=== PATIENT | male | born 1960 | race Caucasian/White ===

== ENCOUNTER 2017-08-19 09:08 | Inpatient (IN) | payer OTHER ==
[2017-08-19 09:45] VITALS: BMI 21.7
--- NOTE | 2017-08-19 13:24 | HP ---
CIWA Score - CIWA Score Nausea/Vomitin-No Nausea/No Vomiting Muscle Tremors: 4-Moderate,w/Arms Extend Anxiety: 4-Mod. Anxious/Guarded Agitation: 4-Moderately Restless Paroxysmal Sweats: 3 Orientation: 0-Oriented Tacttile Disturbances: 0-None Auditory Disturbances: 0-None Visual Disturbances: 0-None Headache: 0-None Present CIWA-Ar Total Score: 15 Admission ROS [facility] - HPI Chief Complaint: i am here for detox. Allergies/Adverse Reactions: Allergies Allergy/AdvReac Type Severity Reaction Status Date / Time naproxen [From Naprosyn] Allergy Severe Rash Verified 08/19/17 12:35 History of Present Illness: pt is a 57yr old male with a history of alcohol dependence seeking detox for treatment. Exam Limitations: No Limitations - Ebola screening Have you traveled outside of the country in the last 21 days: No (N) Have you had contact with anyone from an Ebola affected area: No Have you been sick,other than usual withdrawal symptoms: No Do you have a fever: No - Review of Systems Constitutional: No Symptoms Reported EENT: reports: No Symptoms Reported Respiratory: reports: No Symptoms reported Cardiac: reports: Syncope GI: reports: Poor Appetite, Poor Fluid Intake : reports: No Symptoms Reported Musculoskeletal: reports: Joint Pain (B/L hip replacement) Integumentary: reports: No Symptoms Reported Neuro: reports: Tingling, Tremors Endocrine: reports: Excessive Sweating, Flushing, Intolerance to Cold, Intolerance to Heat Hematology: reports: No Symptoms Reported Psychiatric: reports: Judgement Intact, Mood/Affect Appropiate, Orientated x3, Agitated, Anxious Other Systems: Reviewed and Negative Patient History - Patient Medical History Hx Anemia: No Hx Asthma: No Hx Chronic Obstructive Pulmonary Disease (COPD): No Hx Cancer: No Hx Cardiac Disorders: Yes (murmur) Hx Congestive Heart Failure: No Hx Hypertension: No Hx Hypercholesterolemia: No Hx Pacemaker: No HX Cerebrovascular Accident: No Hx Seizures: No Hx Dementia: No Hx Diabetes: No Hx Gastrointestinal Disorders: No Hx Liver Disease: No Hx Genitourinary Disorders: Yes (Hx of gonerrhea.) Hx Sexually Transmitted Disorders: Yes (gonorrhea) Hx Renal Disease (ESRD): No Hx Thyroid Disease: No Hx Human Immunodeficiency Virus (HIV): No (negative) Hx Hepatitis C: No (negative) Hx Depression: Yes (was on wellbutrin) Hx Suicide Attempt: No (tried to slice wrist 2yrs ago, denies any S&H ideation) Hx Bipolar Disorder: No Hx Schizophrenia: No - Patient Surgical History Past Surgical History: Yes Hx Neurologic Surgery: No Hx Cataract Extraction: No Hx Cardiac Surgery: Yes (open heart) Hx Lung Surgery: No Hx Breast Surgery: No Hx Breast Biopsy: No Hx Abdominal Surgery: Yes (hernia repair) Hx Appendectomy: No Hx Cholecystectomy: No Hx Genitourinary Surgery: No Hx Section: No Hx Orthopedic Surgery: Yes (Lt. hip prosthesis,metal plate rt. thigh) Other Surgical History: sinus,vocal chord Anesthesia Reaction: No - PPD History Previous Implant?: Yes Documented Results: Negative w/o proof Implanted On Prior R Admission?: Yes PPD to be Administered?: Yes - Reproductive History Patient is a Female of Child Bearing Age (11 -55 yrs old): No - Smoking Cessation Smoking history: Former smoker Have you smoked in the past 12 months: No If you are a former smoker, when did you quit?: 1995 Hx Chewing Tobacco Use: No Initiated information on smoking cessation: No - Substance & Tx. History Hx Alcohol Use: Yes Hx Substance Use: No Substance Use Type: Alcohol Hx Substance Use Treatment: Yes (last detox 2013 [facility]) - Substances Abused Alcohol-vodka/beer Route: Oral Frequency: Daily Amount used: 1 pt./6-8 (16 oz.) Age of first use: 16 Date of Last Use: 08/18/17 Family Disease History - Family Disease History Family History: Denies Admission Physical Exam S - Vital Signs Vital Signs: Vital Signs - 24 hr 08/19/17 09:42 Temperature 97.9 F Pulse Rate 108 H Respiratory 18 Rate Blood Pressure 170/97 - Physical General Appearance: Yes: Appropriately Dressed, Disheveled, Moderate Distress, Tremorous, Irritable, Sweating, Anxious HEENTM: Yes: Normal Voice, Nasal Congestion, Rhinorrhea Respiratory: Yes: Lungs Clear, Normal Breath Sounds, No Respiratory Distress Neck: Yes: No masses,lesions,Nodules Breast: Yes: Within Normal Limits Cardiology: Yes: Regular Rhythm, Regular Rate, S1, S2 Abdominal: Yes: Normal Bowel Sounds, Non Tender, Soft Genitourinary: Yes: Within Normal Limits Back: Yes: Normal Inspection Musculoskeletal: Yes: full range of Motion, Other (hip discomfort h/o hips replacement) Extremities: Yes: Normal Capillary Refill, Normal Inspection, Non-Tender, Tremors Neurological: Yes: Fully Oriented, Alert, Normal Response Integumentary: Yes: Normal Color, Diaphoresis Lymphatic: Yes: Within Normal Limits - Diagnostic (1) Alcohol dependence with uncomplicated withdrawal Current Visit: Yes Status: Chronic (2) H/O cardiac murmur Current Visit: No Status: Chronic (3) H/O bilateral hip replacements Current Visit: Yes Status: Chronic Comment: pt has a waddle gait d/t B/L hip replacement Cleared for Admission [facility] - Detox or Rehab [facility] Level of Care: Medically Managed Detox Regimen/Protocol: Librium [facility] Breath Alcohol Content Breath Alcohol Content: 0 Urine Drug Screen - Results Drug Screen Negative: Yes
[2017-08-19] MEDS ORDERED: chlordiazePOXIDE HCL 25 MG CAPSULE PO PRN (13:39)
[2017-08-19] MEDS ORDERED: guaiFENesin/D-METHORPHAN HB 10 ML UNIT-DOSE CUPS PO PRN (13:39)
[2017-08-19] MEDS ORDERED: MAG HYDROX/AL HYDROX/SIMETH 30 ML UNIT-DOSE CUP PO PRN (13:39)
[2017-08-19] MEDS ORDERED: ACETAMINOPHEN 325 MG TABLET (FP) PO PRN (13:39)
[2017-08-19] MEDS ORDERED: MAGNESIUM HYDROX 2400MG/30ML ORAL SUSPENSION 30 ML CUP PO PRN (13:39)
[2017-08-19] MEDS ORDERED: P-EPHED 60MG/TRIPROLIDI 2.5MG TABLET PO PRN (13:39)
[2017-08-19] MEDS ORDERED: MENTHOL/PHENOL 1 EACH UD MM PRN (13:39)
[2017-08-19] MEDS ORDERED: LOPERAMIDE HCL 2 MG CAPSULE PO PRN (13:39)
[2017-08-19] MEDS ORDERED: MAGNESIUM CITRATE 300 ML BOTTLE PO PRN (13:39)
[2017-08-19] MEDS ORDERED: chlordiazePOXIDE HCL 25 MG CAPSULE PO ONE (14:30)
--- NOTE | 2017-08-19 16:02 | CONSULT ---
[facility] Psychiatric Consult - Data Date of interview: 08/19/17 Admission source: [facility] Identifying data: Readmission to [facility] for this 57 y/o male seeking detox treatment on for alcohol dependence.Patient is without children,domiciled,unemployed,disabled and supported on [facility] benefits. Substance Abuse History: Confirmed by patient in this interview.Smoking history : Former smoker. Have you smoked in the past 12 months: No. If you are a former smoker, when did you quit?: 1995. Hx Chewing Tobacco Use: No. Initiated information on smoking cessation: No. - Substance & Tx. History. Hx Alcohol Use: Yes. Hx Substance Use: No. Substance Use Type: Alcohol. Hx Substance Use Treatment: Yes (last detox 2013 [facility]). - Substances Abused. Alcohol-vodka/beer. Route: Oral. Frequency: Daily. Amount used: 1 pt./6-8 (16 oz.). Age of first use: 16. Date of Last Use: 08/18/17 Medical History: Heart murmur,antecedent of treatment for gonorrhea,abdominal herniorraphy and recent history of orthosurgery (left hip prosthesis). Psychiatric History: Patient reports a remote history of two psychiatric hospitalizations at [facility].Diagnosed with MDD.Mr Welsh remembers past treatment with seroquel (other medications not recalled).Lost to OPD care for years as per self-report (no medications,no contact with mental healthcare providers).Patient admits to a suicide attempt," in the ",via self-mutilation (stabbed self). Physical/Sexual Abuse/Trauma History: Patient denies history of abuse. Additional Comment: Drug Screen is negative. Mental Status Exam - Mental Status Exam Alert and Oriented to: Time, Place, Person Cognitive Function: Good Patient Appearance: Well Groomed Mood: Nervous, Withdrawn, Anxious Affect: Mood Congruent, Constricted Patient Behavior: Passive, Fatigued, Cooperative Speech Pattern: Clear, Appropriate Voice Loudness: Normal Thought Process: Intact, Goal Oriented Thought Disorder: Not Present Hallucinations: Denies Suicidal Ideation: Denies Homicidal Ideation: Denies Insight/Judgement: Poor Sleep: Poorly, Difficulty falling asleep Appetite: Poor Gait/Station: Other (gait not observed : patient remains supine during entire interview) Psychiatric Findings - Problem List ([place] 1, 2,3) (1) Alcohol dependence with uncomplicated withdrawal Current Visit: Yes Status: Acute (2) Substance induced mood disorder Current Visit: Yes Status: Acute (3) Insomnia Current Visit: Yes Status: Acute - Initial Treatment Plan Initial Treatment Plan: Psychoeducation and support.Sleep hygiene.Detoxification in progress.Ambien 5 mg po hs prn.Patient informed of risk of parasomnias (sleep-walking).Mr Welsh agrees with this careplan.Observation.
[2017-08-19] MEDS: chlordiazePOXIDE HCL 25 MG CAPSULE PO SCH ×2 (17:20→22:03)
[2017-08-19] MEDS: TOLNAFTATE 1% CREAM 15 GM TUBE TP SCH (22:03)
[2017-08-19] MEDS: THIAMINE HCL 100 MG TABLET (FP) PO SCH (22:03)
[2017-08-19] MEDS: hydrOXYzine PAMOATE 50 MG CAPSULE (FP) PO PRN (22:05)
[2017-08-19 23:16] LABS: URINE APPEARANCE CLEAR; URINE BILIRUBIN NEGATIVE (NEGATIVE); URINE BLOOD NEGATIVE (NEGATIVE); URINE COLOR DKYELLOW; URINE GLUCOSE (UA) NEGATIVE (NEGATIVE); URINE KETONE NEGATIVE (NEGATIVE); URINE LEUK ESTERASE NEGATIVE (NEGATIVE); URINE NITRITE NEGATIVE (NEGATIVE); URINE PROTEIN NEGATIVE (NEGATIVE); URINE UROBILINOGEN 4.0 E.U/dl mg/dL (0.2-1.0)
[2017-08-20] MEDS: chlordiazePOXIDE HCL 25 MG CAPSULE PO SCH ×5 (06:23→22:09)
[2017-08-20] MEDS: TOLNAFTATE 1% CREAM 15 GM TUBE TP SCH ×2 (10:17→22:10)
[2017-08-20] MEDS: PRENATAL VITAMINS W/ FOLIC ACID TABLET (FP) PO SCH (10:17)
[2017-08-20 10:20] LABS: HEMATOCRIT 43.8 % (35.4-49); HEMOGLOBIN 14.3 GM/dL (11.7-16.9); MCH 31.3 pg (25.7-33.7); MCHC 32.5 g/dl (32.0-35.9); MEAN CELL VOLUME 96.3 fl (80-96); MEAN PLT VOLUME 7.6 fl (7.5-11.1); PLATELET COUNT 166 K/MM3 (134-434); RBC 4.56 M/mm3 (4.00-5.60); RDW 14.2 % (11.9-15.9); WHITE BLOOD COUNT 5.7 K/mm3 (4.0-10.0)
[2017-08-20 10:25] LABS: CHLORIDE 101 mmol/L (98-107); POTASSIUM 4.3 mmol/L (3.5-5.1); SODIUM 137 mmol/L (136-145)
[2017-08-20 10:44] LABS: ALBUMIN 3.9 g/dl (3.4-5.0); ALK PHOS 140 U/L (45-117); ANION GAP 8 (8-16); BILIRUBIN,TOTAL 1.1 mg/dL (0.2-1.0); BLOOD UREA NITROGEN 6 mg/dL (7-18); CALCIUM 8.7 mg/dL (8.5-10.1); CO2 28 mmol/L (21-32); CREATININE 0.7 mg/dL (0.7-1.3); GLUCOSE,RANDOM 84 mg/dL (74-106); SGOT/AST 64 U/L (15-37); SGPT/ALT 41 U/L (12-78); TOT PROT 8.6 g/dl (6.4-8.2)
--- NOTE | 2017-08-20 11:53 | EKG ---
Test Reason : Blood Pressure : / mmHG Vent. Rate : 099 BPM Atrial Rate : 099 BPM P-R Int : 122 ms QRS Dur : 118 ms QT Int : 374 ms P-R-T Axes : 015 -46 036 degrees QTc Int : 479 ms NORMAL SINUS RHYTHM LEFT AXIS DEVIATION LEFT VENTRICULAR HYPERTROPHY WITH QRS WIDENING ABNORMAL ECG NO PREVIOUS ECGS AVAILABLE Confirmed by YEIMI PAZ MD ([id number]) on 08/20/2017 11:52:48 AM Referred By: Confirmed By:YEIMI PAZ MD
--- NOTE | 2017-08-20 12:06 | PN ---
[facility] CIWA - CIWA Score Nausea/Vomitin-No Nausea/No Vomiting Muscle Tremors: 3 Anxiety: 4-Mod. Anxious/Guarded Agitation: 0-Normal Activity Paroxysmal Sweats: No Perspiration Orientation: 0-Oriented Tacttile Disturbances: 3-Moderate Itch/Numb/Burn Auditory Disturbances: 2-Mild Harshness/Frighten Visual Disturbances: 3-Moderate Sensitivity Headache: 0-None Present CIWA-Ar Total Score: 15 S Progress Note (SOAP) Subjective: Interrupted sleep, Body Aches, Diarrhea, Tremors, Anxious. Objective: PT. A & O X 3, OBSERVED AMBULATING ON UNIT WITH ASSISTANCE OF A CANE. NO ACUTE DISTRESS. 08/20/17 12:04 Vital Signs Temperature 97.8 F 08/20/17 09:29 Pulse Rate 88 08/20/17 09:29 Respiratory Rate 18 08/20/17 09:29 Blood Pressure 151/92 08/20/17 09:29 O2 Sat by Pulse Oximetry (%) Laboratory Tests 08/19/17 08/20/17 08/20/17 22:10 05:45 05:45 WBC 5.7 RBC 4.56 Hgb 14.3 Hct 43.8 MCV 96.3 H MCH 31.3 MCHC 32.5 RDW 14.2 Plt Count 166 D MPV 7.6 D Sodium 137 Potassium 4.3 Chloride 101 Carbon Dioxide 28 Anion Gap 8 BUN 6 L D Creatinine 0.7 Creat Clearance w eGFR > 60 Random Glucose 84 Calcium 8.7 Total Bilirubin 1.1 H D AST 64 H D ALT 41 D Alkaline Phosphatase 140 H D Total Protein 8.6 H Albumin 3.9 Urine Color Dkyellow Urine Appearance Clear Urine pH 5.0 Ur Specific [place] 1.014 Urine Protein Negative Urine Glucose (UA) Negative Urine Ketones Negative Urine Blood Negative Urine Nitrite Negative Urine Bilirubin Negative Urine Urobilinogen 4.0 e.u/dl Ur Leukocyte Esterase Negative LABS NOTED. RPR RESULT PENDING. 08/20/17 12:05 Assessment: 08/20/17 12:04 WITHDRAWAL SYMPTOMS. Plan: CONTINUE DETOX. INCREASE DAILY PO FLUID INTAKE.
[2017-08-20] MEDS: THIAMINE HCL 100 MG TABLET (FP) PO SCH (22:09)
[2017-08-20] MEDS: ZOLPIDEM TARTRATE 5 MG TABLET PO PRN (22:09)
[2017-08-21] MEDS: chlordiazePOXIDE HCL 25 MG CAPSULE PO SCH ×2 (05:47→10:10)
[2017-08-21] MEDS: TOLNAFTATE 1% CREAM 15 GM TUBE TP SCH ×2 (10:09→22:05)
[2017-08-21] MEDS: PRENATAL VITAMINS W/ FOLIC ACID TABLET (FP) PO SCH (10:09)
--- NOTE | 2017-08-21 13:11 | PN ---
[facility] CIWA - CIWA Score Nausea/Vomitin-No Nausea/No Vomiting Muscle Tremors: 3 Anxiety: 4-Mod. Anxious/Guarded Agitation: 2 Paroxysmal Sweats: No Perspiration Orientation: 2-Disoriented Date<2 days Tacttile Disturbances: 2-Mild Itch/Numbness/Burn Auditory Disturbances: 0-None Visual Disturbances: 2-Mild Sensitivity Headache: 0-None Present CIWA-Ar Total Score: 15 [facility] Progress Note (SOAP) Subjective: Anxious, Fatigue, Tremors, Body Aches. Objective: PT. A & O X 2 (UNCERTAIN ABOUT CURRENT DAY / DATE). NO ACUTE DISTRESS. 08/21/17 13:07 Vital Signs Temperature 97.0 F L 08/21/17 09:42 Pulse Rate 87 08/21/17 09:42 Respiratory Rate 18 08/21/17 09:42 Blood Pressure 134/82 08/21/17 09:42 O2 Sat by Pulse Oximetry (%) Laboratory Tests 08/19/17 08/20/17 08/20/17 22:10 05:45 05:45 WBC 5.7 RBC 4.56 Hgb 14.3 Hct 43.8 MCV 96.3 H MCH 31.3 MCHC 32.5 RDW 14.2 Plt Count 166 D MPV 7.6 D Sodium 137 Potassium 4.3 Chloride 101 Carbon Dioxide 28 Anion Gap 8 BUN 6 L D Creatinine 0.7 Creat Clearance w eGFR > 60 Random Glucose 84 Calcium 8.7 Total Bilirubin 1.1 H D AST 64 H D ALT 41 D Alkaline Phosphatase 140 H D Total Protein 8.6 H Albumin 3.9 Urine Color Dkyellow Urine Appearance Clear Urine pH 5.0 Ur Specific [place] 1.014 Urine Protein Negative Urine Glucose (UA) Negative Urine Ketones Negative Urine Blood Negative Urine Nitrite Negative Urine Bilirubin Negative Urine Urobilinogen 4.0 e.u/dl Ur Leukocyte Esterase Negative RPR Titer 08/20/17 05:45 WBC RBC Hgb Hct MCV MCH MCHC RDW Plt Count MPV Sodium Potassium Chloride Carbon Dioxide Anion Gap BUN Creatinine Creat Clearance w eGFR Random Glucose Calcium Total Bilirubin AST ALT Alkaline Phosphatase Total Protein Albumin Urine Color Urine Appearance Urine pH Ur Specific [place] Urine Protein Urine Glucose (UA) Urine Ketones Urine Blood Urine Nitrite Urine Bilirubin Urine Urobilinogen Ur Leukocyte Esterase RPR Titer Nonreactive LABS NOTED. Assessment: 08/21/17 13:10 WITHDRAWAL SYMPTOMS. Plan: CONTINUE DETOX. INCREASE DAILY PO FLUID INTAKE.
[2017-08-21] MEDS: chlordiazePOXIDE 5 MG CAPSULE PO SCH ×2 (17:26→22:05)
[2017-08-21] MEDS: THIAMINE HCL 100 MG TABLET (FP) PO SCH (22:05)
[2017-08-21] MEDS: ZOLPIDEM TARTRATE 5 MG TABLET PO PRN (22:09)
[2017-08-22] MEDS: chlordiazePOXIDE 5 MG CAPSULE PO SCH ×2 (05:58→10:24)
[2017-08-22] MEDS: TOLNAFTATE 1% CREAM 15 GM TUBE TP SCH ×2 (10:25→22:22)
[2017-08-22] MEDS: PRENATAL VITAMINS W/ FOLIC ACID TABLET (FP) PO SCH (10:25)
--- NOTE | 2017-08-22 16:50 | PN ---
[facility] Progress Note (SOAP) Subjective: Body Aches, Interrupted sleep, Fatigue, Anxious. Objective: PT. A & O X 2 (UNCERTAIN ABOUT CURRENT DAY/ DATE). PT. OBSERVED AMBULATING ON UNIT WITH ASSISTANCE OF A CANE. NO ACUTE DISTRESS. 08/22/17 16:45 Vital Signs Temperature 97.7 F 08/22/17 14:39 Pulse Rate 82 08/22/17 14:39 Respiratory Rate 18 08/22/17 14:39 Blood Pressure 133/78 08/22/17 14:39 O2 Sat by Pulse Oximetry (%) Laboratory Tests 08/19/17 08/20/17 08/20/17 22:10 05:45 05:45 WBC 5.7 RBC 4.56 Hgb 14.3 Hct 43.8 MCV 96.3 H MCH 31.3 MCHC 32.5 RDW 14.2 Plt Count 166 D MPV 7.6 D Sodium 137 Potassium 4.3 Chloride 101 Carbon Dioxide 28 Anion Gap 8 BUN 6 L D Creatinine 0.7 Creat Clearance w eGFR > 60 Random Glucose 84 Calcium 8.7 Total Bilirubin 1.1 H D AST 64 H D ALT 41 D Alkaline Phosphatase 140 H D Total Protein 8.6 H Albumin 3.9 Urine Color Dkyellow Urine Appearance Clear Urine pH 5.0 Ur Specific [place] 1.014 Urine Protein Negative Urine Glucose (UA) Negative Urine Ketones Negative Urine Blood Negative Urine Nitrite Negative Urine Bilirubin Negative Urine Urobilinogen 4.0 e.u/dl Ur Leukocyte Esterase Negative RPR Titer 08/20/17 05:45 WBC RBC Hgb Hct MCV MCH MCHC RDW Plt Count MPV Sodium Potassium Chloride Carbon Dioxide Anion Gap BUN Creatinine Creat Clearance w eGFR Random Glucose Calcium Total Bilirubin AST ALT Alkaline Phosphatase Total Protein Albumin Urine Color Urine Appearance Urine pH Ur Specific [place] Urine Protein Urine Glucose (UA) Urine Ketones Urine Blood Urine Nitrite Urine Bilirubin Urine Urobilinogen Ur Leukocyte Esterase RPR Titer Nonreactive LABS NOTED. Assessment: 08/22/17 16:45 WITHDRAWAL SYMPTOMS. Plan: CONTINUE DETOX. DUE TO LINGERING DETOX SYMPTOMS, PATIENT'S CURRENT DIFFICULTIES WITH AMBULATION , AND DUE TO THE FACT THAT THE PATIENT IS HOMELESS, PATIENT TO REMAIN ON DETOX UNIT 08/25/2017, AT WHICH TIME PATIENT WILL BE TAKEN TO [facility] FOR AFTERCARE (ADMITTING MEDICAL PROVIDER UNAVAILABLE AT [facility] ON 08/24/2017 TO DO ADMISSION ASSESSMENT, ADMISSION PLANNED FOR 08/25/2017 INSTEAD) .
[2017-08-22] MEDS: chlordiazePOXIDE HCL 10 MG CAPSULE PO SCH ×2 (17:38→22:22)
[2017-08-22] MEDS: THIAMINE HCL 100 MG TABLET (FP) PO SCH (22:21)
[2017-08-22] MEDS: hydrOXYzine PAMOATE 50 MG CAPSULE (FP) PO PRN (22:23)
[2017-08-23] MEDS: chlordiazePOXIDE HCL 10 MG CAPSULE PO SCH ×2 (05:23→10:17)
[2017-08-23] MEDS: TOLNAFTATE 1% CREAM 15 GM TUBE TP SCH ×2 (10:17→22:21)
[2017-08-23] MEDS: PRENATAL VITAMINS W/ FOLIC ACID TABLET (FP) PO SCH (10:17)
--- NOTE | 2017-08-23 18:23 | PN ---
S Progress Note (SOAP) Subjective: ALERT,IRRITABLE,ANXIOUS,INTERRUPTED SLEEP Objective: 08/23/17 18:21 Vital Signs Temperature 97.4 F L 08/23/17 18:09 Pulse Rate 94 H 08/23/17 18:09 Respiratory Rate 19 08/23/17 18:09 Blood Pressure 112/67 08/23/17 18:09 O2 Sat by Pulse Oximetry (%) Assessment: 08/23/17 18:22 WITHDRAWAL SYMPTOM Plan: CONTINUE DETOX
[2017-08-23] MEDS: THIAMINE HCL 100 MG TABLET (FP) PO SCH (22:20)
[2017-08-23] MEDS: hydrOXYzine PAMOATE 50 MG CAPSULE (FP) PO PRN (22:21)
[2017-08-24] MEDS: PRENATAL VITAMINS W/ FOLIC ACID TABLET (FP) PO SCH (10:43)
[2017-08-24] MEDS: TOLNAFTATE 1% CREAM 15 GM TUBE TP SCH ×2 (10:43→22:04)
--- NOTE | 2017-08-24 16:18 | PN ---
[facility] Progress Note (SOAP) Subjective: Interrupted Sleep, Body Aches, Anxious. Objective: PT. A & O X 3, OBSERVED AMBULATING ON UNIT WITH ASSISTANCE OF A CANE. NO ACUTE DISTRESS. 08/24/17 16:17 Vital Signs Temperature 97.5 F L 08/24/17 14:07 Pulse Rate 79 08/24/17 14:07 Respiratory Rate 20 08/24/17 14:07 Blood Pressure 135/81 08/24/17 14:07 O2 Sat by Pulse Oximetry (%) Laboratory Tests 08/19/17 08/20/17 08/20/17 22:10 05:45 05:45 WBC 5.7 RBC 4.56 Hgb 14.3 Hct 43.8 MCV 96.3 H MCH 31.3 MCHC 32.5 RDW 14.2 Plt Count 166 D MPV 7.6 D Sodium 137 Potassium 4.3 Chloride 101 Carbon Dioxide 28 Anion Gap 8 BUN 6 L D Creatinine 0.7 Creat Clearance w eGFR > 60 Random Glucose 84 Calcium 8.7 Total Bilirubin 1.1 H D AST 64 H D ALT 41 D Alkaline Phosphatase 140 H D Total Protein 8.6 H Albumin 3.9 Urine Color Dkyellow Urine Appearance Clear Urine pH 5.0 Ur Specific [place] 1.014 Urine Protein Negative Urine Glucose (UA) Negative Urine Ketones Negative Urine Blood Negative Urine Nitrite Negative Urine Bilirubin Negative Urine Urobilinogen 4.0 e.u/dl Ur Leukocyte Esterase Negative RPR Titer 08/20/17 05:45 WBC RBC Hgb Hct MCV MCH MCHC RDW Plt Count MPV Sodium Potassium Chloride Carbon Dioxide Anion Gap BUN Creatinine Creat Clearance w eGFR Random Glucose Calcium Total Bilirubin AST ALT Alkaline Phosphatase Total Protein Albumin Urine Color Urine Appearance Urine pH Ur Specific [place] Urine Protein Urine Glucose (UA) Urine Ketones Urine Blood Urine Nitrite Urine Bilirubin Urine Urobilinogen Ur Leukocyte Esterase RPR Titer Nonreactive LABS NOTED. Assessment: 08/24/17 16:17 WITHDRAWAL SYMPTOMS. Plan: CONTINUE DETOX.
[2017-08-24] MEDS: THIAMINE HCL 100 MG TABLET (FP) PO SCH (22:03)
[2017-08-24] MEDS: hydrOXYzine PAMOATE 50 MG CAPSULE (FP) PO PRN (22:05)
[2017-08-25] MEDS: PRENATAL VITAMINS W/ FOLIC ACID TABLET (FP) PO SCH (10:20)
[2017-08-25] MEDS: TOLNAFTATE 1% CREAM 15 GM TUBE TP SCH (10:20)
--- NOTE | 2017-08-25 12:19 | DS ---
[facility] Detox Discharge Summary Admission Date: 08/19/17 Discharge Date: 08/25/17 - History Present History: Alcohol Dependence Additional Comments: DETOX COMPLETED. ALERT O X 3. NAD. Pertinent Past History: SEE DX BELOW - Physical Exam Results Vital Signs: Vital Signs Temperature 99.1 F 08/25/17 09:36 Pulse Rate 81 08/25/17 09:36 Respiratory Rate 20 08/25/17 09:36 Blood Pressure 131/74 08/25/17 09:36 O2 Sat by Pulse Oximetry (%) Pertinent Admission Physical Exam Findings: WITHDRAWAL SX Laboratory Last Values WBC 5.7 K/mm3 (4.0-10.0) 08/20/17 05:45 RBC 4.56 M/mm3 (4.00-5.60) 08/20/17 05:45 Hgb 14.3 GM/dL (11.7-16.9) 08/20/17 05:45 Hct 43.8 % (35.4-49) 08/20/17 05:45 MCV 96.3 fl (80-96) H 08/20/17 05:45 MCH 31.3 pg (25.7-33.7) 08/20/17 05:45 MCHC 32.5 g/dl (32.0-35.9) 08/20/17 05:45 RDW 14.2 % (11.9-15.9) 08/20/17 05:45 Plt Count 166 K/MM3 (134-434) D 08/20/17 05:45 MPV 7.6 fl (7.5-11.1) D 08/20/17 05:45 Sodium 137 mmol/L (136-145) 08/20/17 05:45 Potassium 4.3 mmol/L (3.5-5.1) 08/20/17 05:45 Chloride 101 mmol/L (98-107) 08/20/17 05:45 Carbon Dioxide 28 mmol/L (21-32) 08/20/17 05:45 Anion Gap 8 (8-16) 08/20/17 05:45 BUN 6 mg/dL (7-18) L D 08/20/17 05:45 Creatinine 0.7 mg/dL (0.7-1.3) 08/20/17 05:45 Creat Clearance w eGFR > 60 (>60) 08/20/17 05:45 Random Glucose 84 mg/dL (74-106) 08/20/17 05:45 Calcium 8.7 mg/dL (8.5-10.1) 08/20/17 05:45 Total Bilirubin 1.1 mg/dL (0.2-1.0) H D 08/20/17 05:45 AST 64 U/L (15-37) H D 08/20/17 05:45 ALT 41 U/L (12-78) D 08/20/17 05:45 Alkaline Phosphatase 140 U/L (45-117) H D 08/20/17 05:45 Total Protein 8.6 g/dl (6.4-8.2) H 08/20/17 05:45 Albumin 3.9 g/dl (3.4-5.0) 08/20/17 05:45 Urine Color Dkyellow 08/19/17 22:10 Urine Appearance Clear 08/19/17 22:10 Urine pH 5.0 (5.0-8.0) 08/19/17 22:10 Ur Specific [place] 1.014 (1.001-1.035) 08/19/17 22:10 Urine Protein Negative (NEGATIVE) 08/19/17 22:10 Urine Glucose (UA) Negative (NEGATIVE) 08/19/17 22:10 Urine Ketones Negative (NEGATIVE) 08/19/17 22:10 Urine Blood Negative (NEGATIVE) 08/19/17 22:10 Urine Nitrite Negative (NEGATIVE) 08/19/17 22:10 Urine Bilirubin Negative (NEGATIVE) 08/19/17 22:10 Urine Urobilinogen 4.0 e.u/dl mg/dL (0.2-1.0) 08/19/17 22:10 Ur Leukocyte Esterase Negative (NEGATIVE) 08/19/17 22:10 RPR Titer Nonreactive (NONREACTIVE) 08/20/17 05:45 - Treatment Hospital Course: Detox Protocol Followed, Detoxed Safely, Responded well, Discharged Condition Good - Medication Discharge Medications: Ambulatory Orders NK [No Known Home Medication] 08/19/17 - Diagnosis (1) Alcohol dependence with uncomplicated withdrawal Current Visit: Yes Status: Acute (2) H/O bilateral hip replacements Current Visit: Yes Status: Chronic (3) Asthma Current Visit: No Status: Chronic (4) H/O cardiac murmur Current Visit: No Status: Chronic - AMA Did Patient Leave Against Medical Advice: No
[2017-08-25 13:35] VITALS: BP 132/78; PULSE 87; TEMP 98.4
== END 2017-08-25 15:11 | disposition home or self-care (01) | DRG 897 ==
LOC: EDBD 09:08 → YASAS 09:08 → Y3N 14:02 → UNDODISIN 08-25 09:20
PROVIDERS: ADMIT Internal Medicine; ATTEND Internal Medicine
PROC: HZ2ZZZZ Detoxification Services for Substance Abuse Treatment (ICD-10-PCS; principal; 2017-08-19)
DX: F10.230 Alcohol dependence with withdrawal, uncomplicated (principal); F19.24 Other psychoactive substance dependence with psychoactive substance-induced mood disorder; G47.00 Insomnia, unspecified; J45.909 Unspecified asthma, uncomplicated; Z95.1 Presence of aortocoronary bypass graft; Z96.643 Presence of artificial hip joint, bilateral; Z86.19 Personal history of other infectious and parasitic diseases; Z91.5 Personal history of self-harm; Z86.79 Personal history of other diseases of the circulatory system
CPT/HCPCS: 36415; 80053; 81003; 85027; 86593; 93005; 93010

== ENCOUNTER 2017-12-12 08:41 | Inpatient (IN) | payer OTHER ==
[2017-12-12 09:18] VITALS: BMI 23.0
--- NOTE | 2017-12-12 10:15 | HP ---
CIWA Score - CIWA Score Nausea/Vomitin-Mild Nausea/No Vomiting Muscle Tremors: 4-Moderate,w/Arms Extend Anxiety: 4-Mod. Anxious/Guarded Agitation: 1-Slight > Activity Paroxysmal Sweats: 1-Minimal Palms Moist Orientation: 1-Uncertain about Date Tacttile Disturbances: 1-Very Mild Itch/Numbness Auditory Disturbances: 0-None Visual Disturbances: 0-None Headache: 2-Mild CIWA-Ar Total Score: 15 Admission ROS S - HPI Chief Complaint: I'm 57, I have to move on with my life, I have to stop drinking Allergies/Adverse Reactions: Allergies Allergy/AdvReac Type Severity Reaction Status Date / Time naproxen [From Naprosyn] Allergy Severe Rash Verified 12/12/17 09:45 History of Present Illness: 57 yo gentleman here for detox from alcohol. History of previous detox - last time . No seizures but does have black outs. Exam Limitations: Clinical Condition - Ebola screening Have you traveled outside of the country in the last 21 days: No (N) Have you had contact with anyone from an Ebola affected area: No Have you been sick,other than usual withdrawal symptoms: No Do you have a fever: No - Review of Systems Constitutional: Loss of Appetite, Malaise EENT: reports: Blurred Vision Respiratory: reports: No Symptoms reported Cardiac: reports: No Symptoms Reported GI: reports: Nausea, Poor Appetite, Poor Fluid Intake, Abdominal cramping : reports: Frequency Musculoskeletal: reports: Joint Pain, Joint Stiffness Integumentary: reports: Dryness Neuro: reports: Headache, Tremors Endocrine: reports: No Symptoms Reported Hematology: reports: No Symptoms Reported Psychiatric: reports: Judgement Intact, Mood/Affect Appropiate, Anxious Other Systems: Reviewed and Negative Patient History - Patient Medical History Hx Anemia: No Hx Asthma: No Hx Chronic Obstructive Pulmonary Disease (COPD): No Hx Cancer: No Hx Cardiac Disorders: Yes (murmur) Hx Congestive Heart Failure: No Hx Hypertension: No Hx Hypercholesterolemia: No Hx Pacemaker: No HX Cerebrovascular Accident: No Hx Seizures: No Hx Dementia: No Hx Diabetes: No Hx Gastrointestinal Disorders: No Hx Liver Disease: No Hx Genitourinary Disorders: No Hx Sexually Transmitted Disorders: Yes (gonorrhea) Hx Renal Disease (ESRD): No Hx Thyroid Disease: No Hx Human Immunodeficiency Virus (HIV): No (negative) Hx Hepatitis C: No (negative) Hx Depression: Yes (was on wellbutrin) Hx Suicide Attempt: Yes (tried to slice wrist 2yrs ago, denies any current ideation) Hx Bipolar Disorder: No Hx Schizophrenia: No - Patient Surgical History Past Surgical History: Yes Hx Neurologic Surgery: No Hx Cataract Extraction: No Hx Cardiac Surgery: Yes (open heart) Hx Lung Surgery: No Hx Breast Surgery: No Hx Breast Biopsy: No Hx Abdominal Surgery: Yes (hernia repair) Hx Appendectomy: No Hx Cholecystectomy: No Hx Genitourinary Surgery: No Hx Section: No Hx Orthopedic Surgery: Yes (Lt. hip prosthesis,metal plate rt. thigh) Other Surgical History: sinus,vocal chord Anesthesia Reaction: No - PPD History Previous Implant?: Yes Documented Results: Negative w/proof Implanted On Prior [facility] Admission?: Yes Date: 08/21/17 Results: NEGATIVE PPD to be Administered?: No - Reproductive History Patient is a Female of Child Bearing Age (11 -55 yrs old): No (male) - Smoking Cessation Smoking history: Never smoked Have you smoked in the past 12 months: No Hx Chewing Tobacco Use: No Initiated information on smoking cessation: No - Substance & Tx. History Hx Alcohol Use: Yes Hx Substance Use: No Substance Use Type: Alcohol Hx Substance Use Treatment: Yes (detox, rehab) - Substances Abused Alcohol Route: Oral Frequency: Daily Amount used: 2 PINTS OF VODKA Age of first use: 16 Date of Last Use: 12/11/17 Family Disease History - Family Disease History Family Disease History: Diabetes: Mother (alive), Other: Father (unknown), Brother (two - unknown medical hx), Sister (two - unkown medical hx), Son (two sons - no contact), Daughter (two daughters - no contact) Admission Physical Exam BHS - Vital Signs Vital Signs: Vital Signs - 24 hr 12/12/17 09:12 Temperature 97 F L Pulse Rate 81 Respiratory 18 Rate Blood Pressure 122/67 - Physical General Appearance: Yes: Nourished, Appropriately Dressed, Moderate Distress, Anxious HEENTM: Yes: EOMI, Hearing grossly Normal, Normocephalic, Normal Voice, Pharynx Normal Respiratory: Yes: Normal Breath Sounds, No Respiratory Distress Neck: Yes: No masses,lesions,Nodules, Supple Breast: Yes: Breast Exam Deferred Cardiology: Yes: Regular Rhythm, Regular Rate, Other (no murmur appreciated) Abdominal: Yes: Soft Genitourinary: Yes: Frequency Back: Yes: Decreased Range of Motion, Other (milkd kyphosis) Musculoskeletal: Yes: Joint Stiffness, Other (needs cane to ambulate) Extremities: Yes: Other (moves stiffly - wide gait due to hip replacements) Neurological: Yes: Alert, Normal Mood/Affect, Normal Response Integumentary: Yes: Normal Color, Dry, Warm Lymphatic: Yes: Within Normal Limits - Diagnostic (1) Alcohol dependence with uncomplicated withdrawal Current Visit: Yes Status: Chronic (2) H/O bilateral hip replacements Current Visit: Yes Status: Chronic Comment: pt has a waddle gait d/t B/L hip replacement (3) Dehydration Current Visit: Yes Status: Chronic Cleared for Admission [facility] - Detox or Rehab [facility] Level of Care: Medically Managed Detox Regimen/Protocol: Librium [facility] Breath Alcohol Content Breath Alcohol Content: 0.090 Urine Drug Screen - Results Drug Screen Negative: Yes
[2017-12-12] MEDS ORDERED: LOPERAMIDE HCL 2 MG CAPSULE PO PRN (10:22)
[2017-12-12] MEDS ORDERED: chlordiazePOXIDE HCL 25 MG CAPSULE PO PRN (10:22)
[2017-12-12] MEDS ORDERED: P-EPHED 60MG/TRIPROLIDI 2.5MG TABLET PO PRN (10:22)
[2017-12-12] MEDS ORDERED: MAG HYDROX/AL HYDROX/SIMETH 30 ML UNIT-DOSE CUP PO PRN (10:22)
[2017-12-12] MEDS ORDERED: hydrOXYzine PAMOATE 25 MG CAPSULE (FP) PO PRN (10:22)
[2017-12-12] MEDS ORDERED: guaiFENesin/D-METHORPHAN HB 10 ML UNIT-DOSE CUPS PO PRN (10:22)
[2017-12-12] MEDS ORDERED: ACETAMINOPHEN 325 MG TABLET (FP) PO PRN (10:22)
[2017-12-12] MEDS ORDERED: MAGNESIUM HYDROX 2400MG/30ML ORAL SUSPENSION 30 ML CUP PO PRN (10:22)
[2017-12-12] MEDS ORDERED: MAGNESIUM CITRATE 300 ML BOTTLE PO PRN (10:22)
[2017-12-12] MEDS ORDERED: MENTHOL/PHENOL 1 EACH UD MM PRN (10:22)
[2017-12-12] MEDS ORDERED: chlordiazePOXIDE HCL 25 MG CAPSULE PO ONE (11:30)
--- NOTE | 2017-12-12 14:47 | EKG ---
Test Reason : Blood Pressure : / mmHG Vent. Rate : 083 BPM Atrial Rate : 083 BPM P-R Int : 124 ms QRS Dur : 108 ms QT Int : 408 ms P-R-T Axes : 012 -49 042 degrees QTc Int : 479 ms NORMAL SINUS RHYTHM LEFT ANTERIOR FASCICULAR BLOCK MINIMAL VOLTAGE CRITERIA FOR LVH, MAY BE NORMAL VARIANT ABNORMAL ECG WHEN COMPARED WITH ECG OF 19-AUG-2017 15:16, NO SIGNIFICANT CHANGE WAS FOUND Confirmed by MD Donald, Filiberto ([id number]) on 12/12/2017 2:47:21 PM Referred By: Confirmed By:Filiberto Bennett MD
[2017-12-12 17:37] LABS: URINE APPEARANCE CLEAR; URINE BILIRUBIN NEGATIVE (<2.0 mg/dL); URINE COLOR LTYELLOW; URINE GLUCOSE (UA) NEGATIVE (NEGATIVE); URINE KETONE NEGATIVE (NEGATIVE); URINE LEUK ESTERASE NEGATIVE (NEGATIVE); URINE NITRITE NEGATIVE (NEGATIVE); URINE PROTEIN NEGATIVE (NEGATIVE); URINE UROBILINOGEN NEGATIVE mg/dL (0.2-1.0)
[2017-12-12] MEDS: chlordiazePOXIDE HCL 25 MG CAPSULE PO SCH ×2 (17:54→22:47)
[2017-12-12] MEDS: THIAMINE HCL 100 MG TABLET (FP) PO SCH (22:47)
[2017-12-13] MEDS: chlordiazePOXIDE HCL 25 MG CAPSULE PO SCH ×4 (05:14→22:36)
[2017-12-13 10:03] LABS: HEMATOCRIT 43.3 % (35.4-49); HEMOGLOBIN 14.6 GM/dL (11.7-16.9); MCH 31.4 pg (25.7-33.7); MCHC 33.7 g/dl (32.0-35.9); MEAN CELL VOLUME 93.2 fl (80-96); MEAN PLT VOLUME 7.1 fl (7.5-11.1); PLATELET COUNT 288 K/MM3 (134-434); RBC 4.64 M/mm3 (4.00-5.60); RDW 14.7 % (11.9-15.9); WHITE BLOOD COUNT 3.2 K/mm3 (4.0-10.0)
[2017-12-13 10:08] LABS: CHLORIDE 105 mmol/L (98-107); POTASSIUM 4.4 mmol/L (3.5-5.1); SODIUM 138 mmol/L (136-145)
[2017-12-13] MEDS: PRENATAL VITAMINS W/ FOLIC ACID TABLET (FP) PO SCH (10:18)
[2017-12-13 10:23] LABS: ALBUMIN 3.8 g/dl (3.4-5.0); ALK PHOS 111 U/L (45-117); ANION GAP 5 (8-16); BILIRUBIN,TOTAL 0.4 mg/dL (0.2-1.0); BLOOD UREA NITROGEN 5 mg/dL (7-18); CALCIUM 8.7 mg/dL (8.5-10.1); CO2 28 mmol/L (21-32); CREATININE 0.7 mg/dL (0.7-1.3); GLUCOSE,RANDOM 86 mg/dL (74-106); SGOT/AST 45 U/L (15-37); SGPT/ALT 38 U/L (12-78); TOT PROT 8.4 g/dl (6.4-8.2)
--- NOTE | 2017-12-13 12:36 | PN ---
S CIWA - CIWA Score Nausea/Vomitin-No Nausea/No Vomiting Muscle Tremors: 4-Moderate,w/Arms Extend Anxiety: 4-Mod. Anxious/Guarded Agitation: 3 Paroxysmal Sweats: 1-Minimal Palms Moist Orientation: 0-Oriented Tacttile Disturbances: 3-Moderate Itch/Numb/Burn Auditory Disturbances: 0-None Visual Disturbances: 0-None Headache: 0-None Present CIWA-Ar Total Score: 15 BHS Progress Note (SOAP) Subjective: ANXIETY,SWEATS,BACK PAIN. Objective: 12/13/17 12:34 Vital Signs 12/13/17 12/13/17 06:11 09:47 Temperature 98 F 97.1 F L Pulse Rate 77 70 Respiratory 18 18 Rate Blood Pressure 131/80 128/76 Laboratory Tests 12/12/17 12/13/17 12/13/17 Unknown 05:55 05:55 WBC 3.2 L D RBC 4.64 Hgb 14.6 Hct 43.3 MCV 93.2 MCH 31.4 MCHC 33.7 RDW 14.7 Plt Count 288 D MPV 7.1 L Sodium 138 Potassium 4.4 Chloride 105 Carbon Dioxide 28 Anion Gap 5 L BUN 5 L Creatinine 0.7 Creat Clearance w eGFR > 60 Random Glucose 86 Calcium 8.7 Total Bilirubin 0.4 D AST 45 H D ALT 38 Alkaline Phosphatase 111 D Total Protein 8.4 H Albumin 3.8 Urine Color Ltyellow Urine Appearance Clear Urine pH 5.0 Ur Specific [place] 1.006 Urine Protein Negative Urine Glucose (UA) Negative Urine Ketones Negative Urine Blood Negative Urine Nitrite Negative Urine Bilirubin Negative Urine Urobilinogen Negative Ur Leukocyte Esterase Negative RPR Titer 12/13/17 05:55 WBC RBC Hgb Hct MCV MCH MCHC RDW Plt Count MPV Sodium Potassium Chloride Carbon Dioxide Anion Gap BUN Creatinine Creat Clearance w eGFR Random Glucose Calcium Total Bilirubin AST ALT Alkaline Phosphatase Total Protein Albumin Urine Color Urine Appearance Urine pH Ur Specific [place] Urine Protein Urine Glucose (UA) Urine Ketones Urine Blood Urine Nitrite Urine Bilirubin Urine Urobilinogen Ur Leukocyte Esterase RPR Titer Nonreactive Assessment: 12/13/17 12:35 WITHDRAWAL SX Plan: CONTINUE DETOX LIDOCAINE PATCH DIRECTED.
[2017-12-13] MEDS: LIDOCAINE 5% TOPICAL PATCH TP SCH (14:08)
--- NOTE | 2017-12-13 14:33 | CONSULT ---
[facility] Psychiatric Consult - Data Date of interview: 12/13/17 Admission source: Admitted as a transfer from [facility] Identifying data: 57 y/o male single, unemployed, SSI recipient father of 5 grown children Substance Abuse History: He presented with a history of chronic alcohol abuse and mul;tiple ppast Detox treatment. he has little recollection of the circumstances leading him to [facility] but admitted that he was drunk. Refer to addiction counselor summary for more detailed drug history Medical History: History of heart murmur. Past history of open heart surgery in 2000. Asthma. Hip prostheisis metal plate right hip Psychiatric History: Historry of depression. Past psychiatric treatment with Wellbutrin. He has been off meds for a long time. C/o depressed mood, insomnia. No suicidal or homicidal ideation Physical/Sexual Abuse/Trauma History: Patient is unable to provide information due to drowsiness Mental Status Exam - Mental Status Exam Cognitive Function: Impaired Patient Appearance: Unkempt Mood: Apathetic, Depressed Affect: Appropriate Patient Behavior: Sedated, Fatigued, Cooperative Speech Pattern: Slurred, Garbled Voice Loudness: Severely Soft/Quiet Thought Process: Intact Thought Disorder: Not Present Hallucinations: None Suicidal Ideation: None Homicidal Ideation: None Insight/Judgement: Poor Sleep: Poorly Appetite: Fair Muscle strength/Tone: Normal Gait/Station: Normal Psychiatric Findings - Problem List ([place] 1, 2,3) (1) Alcohol dependence with uncomplicated withdrawal Current Visit: Yes Status: Acute (2) Asthma Current Visit: Yes Status: Chronic Qualifiers: Asthma severity: mild Asthma persistence: unspecified Asthma complication type: uncomplicated Qualified Code(s): J45.909 - Unspecified asthma, uncomplicated (3) H/O bilateral hip replacements Current Visit: Yes Status: Chronic Comment: pt has a waddle gait d/t B/L hip replacement (4) Insomnia Current Visit: No Status: Acute (5) Substance induced mood disorder Current Visit: No Status: Acute (6) Alcohol dependence Current Visit: No Status: Chronic
[2017-12-13] MEDS: THIAMINE HCL 100 MG TABLET (FP) PO SCH (22:36)
[2017-12-13] MEDS: MELATONIN 5 MG TABLETS PO PRN (22:37)
[2017-12-13] MEDS: LIDOCAINE PATCH REMOVAL MC SCH (22:38)
[2017-12-14] MEDS: chlordiazePOXIDE HCL 25 MG CAPSULE PO SCH ×2 (06:31→10:32)
[2017-12-14] MEDS: LIDOCAINE 5% TOPICAL PATCH TP SCH (10:31)
[2017-12-14] MEDS: PRENATAL VITAMINS W/ FOLIC ACID TABLET (FP) PO SCH (10:31)
--- NOTE | 2017-12-14 11:34 | PN ---
S CIWA - CIWA Score Nausea/Vomitin-No Nausea/No Vomiting Muscle Tremors: 4-Moderate,w/Arms Extend Anxiety: 5 Agitation: 4-Moderately Restless Paroxysmal Sweats: 1-Minimal Palms Moist Orientation: 0-Oriented Tacttile Disturbances: 0-None Auditory Disturbances: 0-None Visual Disturbances: 0-None Headache: 0-None Present CIWA-Ar Total Score: 14 BHS Progress Note (SOAP) Subjective: ANXIETY,IRRITABILITY,SWEATS,BODY ACHES/BACK PAIN. Objective: 12/14/17 11:33 Vital Signs 12/14/17 12/14/17 12/14/17 06:23 06:30 09:09 Temperature 97.7 F 97.3 F L Pulse Rate 66 68 Respiratory 18 18 18 Rate Blood Pressure 119/80 131/84 Laboratory Tests 12/12/17 12/13/17 12/13/17 Unknown 05:55 05:55 WBC 3.2 L D RBC 4.64 Hgb 14.6 Hct 43.3 MCV 93.2 MCH 31.4 MCHC 33.7 RDW 14.7 Plt Count 288 D MPV 7.1 L Sodium 138 Potassium 4.4 Chloride 105 Carbon Dioxide 28 Anion Gap 5 L BUN 5 L Creatinine 0.7 Creat Clearance w eGFR > 60 Random Glucose 86 Calcium 8.7 Total Bilirubin 0.4 D AST 45 H D ALT 38 Alkaline Phosphatase 111 D Total Protein 8.4 H Albumin 3.8 Urine Color Ltyellow Urine Appearance Clear Urine pH 5.0 Ur Specific [place] 1.006 Urine Protein Negative Urine Glucose (UA) Negative Urine Ketones Negative Urine Blood Negative Urine Nitrite Negative Urine Bilirubin Negative Urine Urobilinogen Negative Ur Leukocyte Esterase Negative RPR Titer 12/13/17 05:55 WBC RBC Hgb Hct MCV MCH MCHC RDW Plt Count MPV Sodium Potassium Chloride Carbon Dioxide Anion Gap BUN Creatinine Creat Clearance w eGFR Random Glucose Calcium Total Bilirubin AST ALT Alkaline Phosphatase Total Protein Albumin Urine Color Urine Appearance Urine pH Ur Specific [place] Urine Protein Urine Glucose (UA) Urine Ketones Urine Blood Urine Nitrite Urine Bilirubin Urine Urobilinogen Ur Leukocyte Esterase RPR Titer Nonreactive Assessment: 12/14/17 11:33 WITHDRAWAL SX Plan: CONTINUE DETOX MOTRIN PRN
[2017-12-14] MEDS: chlordiazePOXIDE 5 MG CAPSULE PO SCH ×2 (17:57→22:25)
[2017-12-14] MEDS: THIAMINE HCL 100 MG TABLET (FP) PO SCH (22:25)
[2017-12-14] MEDS: MELATONIN 5 MG TABLETS PO PRN (22:26)
[2017-12-14] MEDS: LIDOCAINE PATCH REMOVAL MC SCH (22:27)
[2017-12-15] MEDS: chlordiazePOXIDE 5 MG CAPSULE PO SCH ×2 (07:26→10:17)
[2017-12-15] MEDS: PRENATAL VITAMINS W/ FOLIC ACID TABLET (FP) PO SCH (10:17)
[2017-12-15] MEDS: LIDOCAINE 5% TOPICAL PATCH TP SCH (10:17)
--- NOTE | 2017-12-15 11:44 | PN ---
BHS Progress Note (SOAP) Subjective: ANXIETY,IRRITABILITY,BODY ACHES. Objective: 12/15/17 11:43 Vital Signs 12/15/17 12/15/17 06:15 09:13 Temperature 97.2 F L 97.1 F L Pulse Rate 63 76 Respiratory 18 18 Rate Blood Pressure 112/71 103/68 Laboratory Tests 12/12/17 12/13/17 12/13/17 Unknown 05:55 05:55 WBC 3.2 L D RBC 4.64 Hgb 14.6 Hct 43.3 MCV 93.2 MCH 31.4 MCHC 33.7 RDW 14.7 Plt Count 288 D MPV 7.1 L Sodium 138 Potassium 4.4 Chloride 105 Carbon Dioxide 28 Anion Gap 5 L BUN 5 L Creatinine 0.7 Creat Clearance w eGFR > 60 Random Glucose 86 Calcium 8.7 Total Bilirubin 0.4 D AST 45 H D ALT 38 Alkaline Phosphatase 111 D Total Protein 8.4 H Albumin 3.8 Urine Color Ltyellow Urine Appearance Clear Urine pH 5.0 Ur Specific [place] 1.006 Urine Protein Negative Urine Glucose (UA) Negative Urine Ketones Negative Urine Blood Negative Urine Nitrite Negative Urine Bilirubin Negative Urine Urobilinogen Negative Ur Leukocyte Esterase Negative RPR Titer 12/13/17 05:55 WBC RBC Hgb Hct MCV MCH MCHC RDW Plt Count MPV Sodium Potassium Chloride Carbon Dioxide Anion Gap BUN Creatinine Creat Clearance w eGFR Random Glucose Calcium Total Bilirubin AST ALT Alkaline Phosphatase Total Protein Albumin Urine Color Urine Appearance Urine pH Ur Specific [place] Urine Protein Urine Glucose (UA) Urine Ketones Urine Blood Urine Nitrite Urine Bilirubin Urine Urobilinogen Ur Leukocyte Esterase RPR Titer Nonreactive Assessment: 12/15/17 11:43 WITHDRAWAL SX Plan: CONTINUE DETOX
[2017-12-15] MEDS: chlordiazePOXIDE HCL 10 MG CAPSULE PO SCH ×2 (17:27→22:25)
[2017-12-15] MEDS: MELATONIN 5 MG TABLETS PO PRN (22:25)
[2017-12-15] MEDS: THIAMINE HCL 100 MG TABLET (FP) PO SCH (22:25)
[2017-12-15] MEDS: LIDOCAINE PATCH REMOVAL MC SCH (22:27)
[2017-12-16] MEDS: chlordiazePOXIDE HCL 10 MG CAPSULE PO SCH ×2 (08:01→10:29)
[2017-12-16] MEDS: LIDOCAINE 5% TOPICAL PATCH TP SCH (10:28)
[2017-12-16] MEDS: PRENATAL VITAMINS W/ FOLIC ACID TABLET (FP) PO SCH (10:28)
--- NOTE | 2017-12-16 11:01 | PN ---
BHS Progress Note (SOAP) Subjective: DETOX COMPLETED. PT REFUSED TO STAY FOR REHAB AT [facility]. PT WENT HOME.INSTRUCTED TO FOLLOW UP AT [facility] NEEDED. Objective: 12/16/17 11:00 Vital Signs 12/16/17 12/16/17 12/16/17 03:30 06:30 06:41 Temperature 97.4 F L Pulse Rate 62 Respiratory 18 18 16 Rate Blood Pressure 102/59 12/16/17 09:22 Temperature 97.5 F L Pulse Rate 63 Respiratory 18 Rate Blood Pressure 105/68 Laboratory Tests 12/12/17 12/13/17 12/13/17 Unknown 05:55 05:55 WBC 3.2 L D RBC 4.64 Hgb 14.6 Hct 43.3 MCV 93.2 MCH 31.4 MCHC 33.7 RDW 14.7 Plt Count 288 D MPV 7.1 L Sodium 138 Potassium 4.4 Chloride 105 Carbon Dioxide 28 Anion Gap 5 L BUN 5 L Creatinine 0.7 Creat Clearance w eGFR > 60 Random Glucose 86 Calcium 8.7 Total Bilirubin 0.4 D AST 45 H D ALT 38 Alkaline Phosphatase 111 D Total Protein 8.4 H Albumin 3.8 Urine Color Ltyellow Urine Appearance Clear Urine pH 5.0 Ur Specific [place] 1.006 Urine Protein Negative Urine Glucose (UA) Negative Urine Ketones Negative Urine Blood Negative Urine Nitrite Negative Urine Bilirubin Negative Urine Urobilinogen Negative Ur Leukocyte Esterase Negative RPR Titer 12/13/17 05:55 WBC RBC Hgb Hct MCV MCH MCHC RDW Plt Count MPV Sodium Potassium Chloride Carbon Dioxide Anion Gap BUN Creatinine Creat Clearance w eGFR Random Glucose Calcium Total Bilirubin AST ALT Alkaline Phosphatase Total Protein Albumin Urine Color Urine Appearance Urine pH Ur Specific [place] Urine Protein Urine Glucose (UA) Urine Ketones Urine Blood Urine Nitrite Urine Bilirubin Urine Urobilinogen Ur Leukocyte Esterase RPR Titer Nonreactive Assessment: 12/16/17 11:00 MEDICALLY STABLE Plan: D/C PT TODAY
--- NOTE | 2017-12-16 11:03 | DS ---
[facility] Detox Discharge Summary Admission Date: 12/12/17 Discharge Date: 12/16/17 - History Present History: Alcohol Dependence Additional Comments: DETOX COMPLETED. PT INSTRUCTED TO F/U AT [facility] NEEDED. Pertinent Past History: PLEASE SEE DX BELOW - Physical Exam Results Vital Signs: Vital Signs Temperature 97.5 F L 12/16/17 09:22 Pulse Rate 63 12/16/17 09:22 Respiratory Rate 18 12/16/17 09:22 Blood Pressure 105/68 12/16/17 09:22 O2 Sat by Pulse Oximetry (%) Pertinent Admission Physical Exam Findings: WITHDRAWAL SX - Treatment Hospital Course: Detox Protocol Followed, Detoxed Safely, Responded well, Discharged Condition Good, Rehab Referral Accepted Patient has Accepted a Rehab Referral to: [facility] - Medication Discharge Medications: Ambulatory Orders NK [No Known Home Medication] 08/19/17 - Diagnosis (1) Alcohol dependence with uncomplicated withdrawal Current Visit: Yes Status: Acute (2) Dehydration Current Visit: Yes Status: Acute (3) H/O bilateral hip replacements Current Visit: Yes Status: Chronic (4) Asthma Current Visit: Yes Status: Chronic Qualifiers: Asthma severity: mild Asthma persistence: unspecified Asthma complication type: uncomplicated Qualified Code(s): J45.909 - Unspecified asthma, uncomplicated - AMA Did Patient Leave Against Medical Advice: No
[2017-12-16 13:52] VITALS: BP 129/77; PULSE 77; TEMP 97.9
== END 2017-12-16 13:48 | disposition home or self-care (01) | DRG 897 ==
LOC: YASAS 08:41 → Y3N 10:40
PROVIDERS: ADMIT Surgery; ATTEND Surgery
PROC: HZ2ZZZZ Detoxification Services for Substance Abuse Treatment (ICD-10-PCS; principal; 2017-12-12)
DX: F10.230 Alcohol dependence with withdrawal, uncomplicated (principal); F19.24 Other psychoactive substance dependence with psychoactive substance-induced mood disorder; E86.0 Dehydration; J45.909 Unspecified asthma, uncomplicated; G47.00 Insomnia, unspecified; R01.1 Cardiac murmur, unspecified; Z87.438 Personal history of other diseases of male genital organs; Z88.8 Allergy status to other drugs, medicaments and biological substances; Z98.890 Other specified postprocedural states; Z96.643 Presence of artificial hip joint, bilateral; Z91.5 Personal history of self-harm; Z59.0 Homelessness
CPT/HCPCS: 36415; 80053; 81003; 85027; 86593; 93005; 93010

== ENCOUNTER 2019-08-25 12:20 | Inpatient (IN) | payer OTHER ==
--- NOTE | 2019-08-25 12:42 | BHS.RME ---
Substance Use & Tx History - Substance Use History Alcohol Substance amount: 2 pints vodka Frequency of use: Daily Substance route: Oral Date of Last Use: 08/24/19 - Last Treatment Date of last treatment: 08/24/2019 Treatment type: Medical Where was last treatment: patient at [facility] yesterday due to blackout and given one dose of librium Physical/Psych/Mental Status - Behavior Eye Contact: Normal - Cooperativeness Cooperativeness: Cooperative - Thinking Thought Processes: Tight, Logical, Goal Directed - Physical Health Problems Is patient presently having any pain?: No Does patient presently have any injuries (include location): No Does patient currently have a fever: No Is patient : No CIWA Nausea/Vomitin Muscle Tremors: 4-Moderate,w/Arms Extend Anxiety: 3 Agitation: 1-Slight > Activity Paroxysmal Sweats: 4-Forehead w/Sweat Beads Orientation: 1-Uncertain about Date Tacttile Disturbances: 1-Very Mild Itch/Numbness Auditory Disturbances: 0-None Visual Disturbances: 0-None Headache: 1-Very Mild CIWA-Ar Total Score: 17
--- NOTE | 2019-08-25 13:34 | HP ---
CIWA Score Nausea/Vomitin-No Nausea/No Vomiting Muscle Tremors: 4-Moderate,w/Arms Extend Anxiety: 3 Agitation: 1-Slight > Activity Paroxysmal Sweats: 2 Orientation: 1-Uncertain about Date Tacttile Disturbances: 1-Very Mild Itch/Numbness Auditory Disturbances: 0-None Visual Disturbances: 0-None Headache: 1-Very Mild CIWA-Ar Total Score: 13 - Admission Criteria [facility]ASAS Guidelines: Admission for Medically Managed Detox: Requires at least one of the followin. CIWA greater than 12 2. Seizures within the past 24 hours 3. Delirium tremens within the past 24 hours 4. Hallucinations within the past 24 hours 5. Acute intervention needed for co occurring medical disorder 6. Acute intervention needed for co occurring psychiatric disorder 7. Severe withdrawal that cannot be handled at a lower level of care (continued vomiting, continued diarrhea, abnormal vital signs) requiring intravenous medication and/or fluids 8. Admitting History and Physical - Admission History of Present Illness: This is a 59 year old male with PMH of open heart surgery, alcohol abuse, major depression, takes no medications. He presented to the clinic for detox from alcohol. He was previously admitted here between 12/12 - 12/20 2017 for detox. Started drinking around 40 years ago. Drinks 2 litres of vodka and 1-16oz can of beer daily. Last drink was yesterday, had 2 pints of vodka. No hx of seizures , last blackout was yesterday. Day before yesterday he was found on the street intoxicated and was taken to [facility], where he spent the night and was D/C the following day. Spent last evening and night at [facility] after he experienced chest pain. As per the patient, he was diagnosed with Pneumonia/Bronchitis and was sent to [facility] for detox. Quit smoking in 2005, a couple of cigarettes per day. Does not use any other substances. Diagnosed with major depression, not on any meds. [place] the train [place] over the past few days, but states that he was not serious about it. Overdosed on medication pills as a teenager, does not remember the pills. ROS: - Low mood PSH: - 7 surgeries - Last surgery for hernia in 2005 - Open heart surgery 2000 - Sinus - throat - broken hip - hip replacement B/L Social: - [place] - 3 daughters and 1 son, only in touch with daughter Physical Exam: - AOx3 - Lungs: B/L clear - CVS: RRR - GI: Soft, distended, umbilical hernia present, NT - Extremities: No edema, no calf tenderness, 2+ pulses B/L - PHARMACEUTICAL SPECIALTY REPRESENTATIVE: Motor 5/5, sensations intact Plan: - CIWA 13, will admit for detox - CXR, pt states he was diagnosed with pneumonia - PPD, has been homeless since last visit 2 years ago - Psych consult for hx of depression - Smoking History Smoking history: Never smoked Have you smoked in the past 12 months: No Aproximately how many cigarettes per day: 5 If you are a former smoker, when did you quit?: 1995 - Alcohol/Substance Use Hx Alcohol Use: Yes Admission [facility] Allergies/Adverse Reactions: Allergies Allergy/AdvReac Type Severity Reaction Status Date / Time naproxen [From Naprosyn] Allergy Severe Rash Verified 08/25/19 14:28 Patient History - Patient Medical History Hx Anemia: No Hx Asthma: No Hx Chronic Obstructive Pulmonary Disease (COPD): No Hx Cancer: No Hx Cardiac Disorders: Yes (murmur) Hx Congestive Heart Failure: No Hx Hypertension: No Hx Hypercholesterolemia: No Hx Pacemaker: No HX Cerebrovascular Accident: No Hx Seizures: No Hx Dementia: No Hx Diabetes: No Hx Gastrointestinal Disorders: No Hx Liver Disease: No Hx Genitourinary Disorders: No Hx Sexually Transmitted Disorders: Yes (gonorrhea) Hx Renal Disease (ESRD): No Hx Thyroid Disease: No Hx Human Immunodeficiency Virus (HIV): No (negative) Hx Hepatitis C: No (negative) Hx Depression: Yes (was on wellbutrin) Hx Suicide Attempt: Yes (tried to slice wrist 2yrs ago, denies any current ideation) Hx Bipolar Disorder: No Hx Schizophrenia: No - Patient Surgical History Past Surgical History: Yes Hx Neurologic Surgery: No Hx Cataract Extraction: No Hx Cardiac Surgery: Yes (open heart) Hx Lung Surgery: No Hx Breast Surgery: No Hx Breast Biopsy: No Hx Abdominal Surgery: Yes (hernia repair) Hx Appendectomy: No Hx Cholecystectomy: No Hx Genitourinary Surgery: No Hx Section: No Hx Orthopedic Surgery: Yes (Lt. hip prosthesis,metal plate rt. thigh) Other Surgical History: sinus,vocal chord Anesthesia Reaction: No - PPD History Date: 08/21/17 Results: NEGATIVE - Smoking Cessation Smoking history: Never smoked Have you smoked in the past 12 months: No Aproximately how many cigarettes per day: 5 If you are a former smoker, when did you quit?: 1995 Chewing Tobacco Use: No Breathalyzer - Breathalyzer Breathalyzer: 0 Urine Drug Screen - Test Device Lot number: [id number] Expiration date: 05/30/21 - Control Is test valid?: Yes - Results Drug screen NEGATIVE: No Urine drug screen results: BZO-Benzodiazepines Inpatient Rehab Admission - Rehab Decision to Admit Inpatient rehab admission?: No
[2019-08-25] MEDS ORDERED: MENTHOL/PHENOL 1 EACH UD MM PRN (13:57)
[2019-08-25] MEDS ORDERED: chlordiazePOXIDE HCL 25 MG CAPSULE PO PRN (13:57)
[2019-08-25] MEDS ORDERED: MAGNESIUM HYDROX 2400MG/30ML ORAL SUSPENSION 30 ML CUP PO PRN (13:57)
[2019-08-25] MEDS ORDERED: ACETAMINOPHEN 325 MG TABLET (FP) PO PRN ×2 (13:57)
[2019-08-25] MEDS ORDERED: MAG HYDROX/AL HYDROX/SIMETH 30 ML UNIT-DOSE CUP PO PRN (13:57)
[2019-08-25] MEDS ORDERED: MAGNESIUM CITRATE 300 ML BOTTLE PO PRN (13:57)
[2019-08-25 14:37] VITALS: BMI 27.6
[2019-08-25] MEDS: chlordiazePOXIDE HCL 25 MG CAPSULE PO SCH ×2 (18:16→22:15)
[2019-08-25] MEDS: MELATONIN 5 MG TABLETS PO PRN (22:15)
[2019-08-25] MEDS: THIAMINE HCL 100 MG TABLET (FP) PO SCH (22:15)
[2019-08-26] MEDS: chlordiazePOXIDE HCL 25 MG CAPSULE PO SCH ×4 (05:29→22:26)
[2019-08-26] MEDS: PRENATAL VITAMINS W/ FOLIC ACID TABLET (FP) PO SCH (10:03)
[2019-08-26 10:41] LABS: HEMOGLOBIN 14.6 GM/dL (11.7-16.9); MCH 30.9 pg (25.7-33.7); MCHC 33.2 g/dl (32.0-35.9); MEAN CELL VOLUME 92.9 fl (80-96); MEAN PLT VOLUME 7.1 fl (7.5-11.1); PLATELET COUNT 266 K/MM3 (134-434); RBC 4.73 M/mm3 (4.00-5.60); RDW 16.1 % (11.9-15.9); WHITE BLOOD COUNT 4.7 K/mm3 (4.0-10.0)
--- NOTE | 2019-08-26 10:45 | EKG ---
Test Reason : Blood Pressure : / mmHG Vent. Rate : 090 BPM Atrial Rate : 090 BPM P-R Int : 148 ms QRS Dur : 114 ms QT Int : 386 ms P-R-T Axes : -36 -56 029 degrees QTc Int : 472 ms UNUSUAL P AXIS, POSSIBLE ECTOPIC ATRIAL RHYTHM LEFT AXIS DEVIATION INCOMPLETE RIGHT BUNDLE BRANCH BLOCK MINIMAL VOLTAGE CRITERIA FOR LVH, MAY BE NORMAL VARIANT ABNORMAL ECG Confirmed by DIANA KAUR MD ([id number]) on 08/26/2019 10:45:17 AM Referred By: Confirmed By:DIANA KAUR MD
[2019-08-26 10:50] LABS: ALBUMIN 3.8 g/dl (3.4-5.0); BILIRUBIN,TOTAL 0.4 mg/dL (0.2-1); BLOOD UREA NITROGEN 16.9 mg/dL (7-18); CALCIUM 8.8 mg/dL (8.5-10.1); POTASSIUM 4.3 mmol/L (3.5-5.1); TOT PROT 8.2 g/dl (6.4-8.2)
--- NOTE | 2019-08-26 12:46 | PN ---
[facility] CIWA - CIWA Score Nausea/Vomitin-No Nausea/No Vomiting Muscle Tremors: None Anxiety: 2 Agitation: 0-Normal Activity Paroxysmal Sweats: No Perspiration Orientation: 0-Oriented Tacttile Disturbances: 0-None Auditory Disturbances: 0-None Visual Disturbances: 1-Very Mild Sensitivity Headache: 0-None Present CIWA-Ar Total Score: 3 BHS Progress Note (SOAP) Subjective: complains of mild light sensitivity hx of depression, would like to see Psychiatry, hx of hospitalization one year ago WAs told at [facility] that he has pneumonia, no current cough or fever Objective: 08/26/19 12:40 Laboratory Tests 08/26/19 08/26/19 05:30 05:30 WBC 4.7 RBC 4.73 Hgb 14.6 Hct 44.0 MCV 92.9 MCH 30.9 MCHC 33.2 RDW 16.1 H Plt Count 266 MPV 7.1 L Sodium 134 L Potassium 4.3 Chloride 104 Carbon Dioxide 25 Anion Gap 5 L BUN 16.9 Creatinine 1.0 Est GFR (CKD-EPI)AfAm 95.06 Est GFR (CKD-EPI)NonAf 82.02 Random Glucose 112 H Calcium 8.8 Total Bilirubin 0.4 AST 73 H ALT 83 H Alkaline Phosphatase 118 H Total Protein 8.2 Albumin 3.8 Vital Signs - 24 hr 08/25/19 08/25/19 08/26/19 14:28 18:03 00:56 Temperature 97.0 F L 97.0 F L Pulse Rate 94 H 103 H Respiratory 11 18 19 Rate Blood Pressure 116/67 137/78 08/26/19 08/26/19 08/26/19 03:57 05:23 07:24 Temperature 97.7 F Pulse Rate 66 Respiratory 18 16 Rate Blood Pressure 90/49 L 106/63 08/26/19 09:06 Temperature 97.0 F L Pulse Rate 77 Respiratory 18 Rate Blood Pressure 120/71 PE Gnl: WDWN, in no distress MS: awake, alert, nl language, no SI HEENT: deformity over bridge of nose Gait: ambulates well with rolling walker Assessment: 08/26/19 12:42 1. Alcohol use disorder 2. Hx of depression, no t on meds for at least 8 mos, [facility] Hx SA 3. Told to have pneumonia. Plan: 1. Librium withdrawal protocol 2. Psychiatry consult 3. Chest xray ordered, not done yet
--- NOTE | 2019-08-26 13:30 | CONSULT ---
[facility] Psychiatric Consult - Data Date of interview: 08/26/19 Admission source: [facility]
[2019-08-26] MEDS: THIAMINE HCL 100 MG TABLET (FP) PO SCH (22:25)
[2019-08-27] MEDS: chlordiazePOXIDE HCL 25 MG CAPSULE PO SCH ×4 (06:04→22:46)
--- NOTE | 2019-08-27 09:41 | PN ---
S CIWA - CIWA Score Nausea/Vomitin-No Nausea/No Vomiting Muscle Tremors: None Anxiety: 3 Agitation: 1-Slight > Activity Paroxysmal Sweats: 2 Orientation: 0-Oriented Tacttile Disturbances: 0-None Auditory Disturbances: 0-None Visual Disturbances: 0-None Headache: 2-Mild CIWA-Ar Total Score: 8 BHS Progress Note (SOAP) Subjective: c/o headache, sweats, and anxiety. Objective: 08/27/19 09:41 Vital Signs 08/27/19 08/27/19 08/27/19 03:30 07:19 08:36 Temperature 98.1 F 96.6 F L Pulse Rate 76 78 Respiratory 18 16 18 Rate Blood Pressure 105/58 L 149/79 Laboratory Last Values WBC 4.7 K/mm3 (4.0-10.0) 08/26/19 05:30 RBC 4.73 M/mm3 (4.00-5.60) 08/26/19 05:30 Hgb 14.6 GM/dL (11.7-16.9) 08/26/19 05:30 Hct 44.0 % (35.4-49) 08/26/19 05:30 MCV 92.9 fl (80-96) 08/26/19 05:30 MCH 30.9 pg (25.7-33.7) 08/26/19 05:30 MCHC 33.2 g/dl (32.0-35.9) 08/26/19 05:30 RDW 16.1 % (11.9-15.9) H 08/26/19 05:30 Plt Count 266 K/MM3 (134-434) 08/26/19 05:30 MPV 7.1 fl (7.5-11.1) L 08/26/19 05:30 Sodium 134 mmol/L (136-145) L 08/26/19 05:30 Potassium 4.3 mmol/L (3.5-5.1) 08/26/19 05:30 Chloride 104 mmol/L (98-107) 08/26/19 05:30 Carbon Dioxide 25 mmol/L (21-32) 08/26/19 05:30 Anion Gap 5 MMOL/L (8-16) L 08/26/19 05:30 BUN 16.9 mg/dL (7-18) 08/26/19 05:30 Creatinine 1.0 mg/dL (0.55-1.3) 08/26/19 05:30 Est GFR (CKD-EPI)AfAm 95.06 08/26/19 05:30 Est GFR (CKD-EPI)NonAf 82.02 08/26/19 05:30 Random Glucose 112 mg/dL (74-106) H 08/26/19 05:30 Calcium 8.8 mg/dL (8.5-10.1) 08/26/19 05:30 Total Bilirubin 0.4 mg/dL (0.2-1) 08/26/19 05:30 AST 73 U/L (15-37) H 08/26/19 05:30 ALT 83 U/L (13-61) H 08/26/19 05:30 Alkaline Phosphatase 118 U/L (45-117) H 08/26/19 05:30 Total Protein 8.2 g/dl (6.4-8.2) 08/26/19 05:30 Albumin 3.8 g/dl (3.4-5.0) 08/26/19 05:30 RPR Titer Nonreactive (NONREACTIVE) 08/26/19 05:30 Labs noted. Assessment: 08/27/19 09:41 AOX3, in no acute respiratory distress. Full ROM, ambulating in the unit. Withdrawal symptoms. Plan: continue detox.
[2019-08-27] MEDS: PRENATAL VITAMINS W/ FOLIC ACID TABLET (FP) PO SCH (10:04)
[2019-08-27] MEDS: THIAMINE HCL 100 MG TABLET (FP) PO SCH (22:18)
[2019-08-27] MEDS: MELATONIN 5 MG TABLETS PO PRN (22:19)
[2019-08-28] MEDS ORDERED: chlordiazePOXIDE HCL 10 MG CAPSULE PO PRN
[2019-08-28] MEDS: chlordiazePOXIDE HCL 10 MG CAPSULE PO SCH ×4 (06:09→22:17)
[2019-08-28] MEDS: PRENATAL VITAMINS W/ FOLIC ACID TABLET (FP) PO SCH (10:05)
--- NOTE | 2019-08-28 11:01 | PN ---
[facility] CIWA - CIWA Score Nausea/Vomitin-No Nausea/No Vomiting Muscle Tremors: 2 Anxiety: 1-Mildly Anxious Agitation: 1-Slight > Activity Paroxysmal Sweats: 1-Minimal Palms Moist Orientation: 0-Oriented Tacttile Disturbances: 0-None Auditory Disturbances: 0-None Visual Disturbances: 0-None Headache: 0-None Present CIWA-Ar Total Score: 5 BHS Progress Note (SOAP) Subjective: 59 years old male admitted on 08/25/19 for alcohol withdrawal sx management treating with librium detox regiment feeling ok today ambulating with walker slow but steady attending behavior and psychosocial therapies groups and meetings Objective: 08/28/19 11:01 Vital Signs Temperature 96.6 F L 08/28/19 08:42 Pulse Rate 73 08/28/19 08:42 Respiratory Rate 18 08/28/19 08:42 Blood Pressure 104/64 08/28/19 08:42 O2 Sat by Pulse Oximetry (%) Laboratory Last Values WBC 4.7 K/mm3 (4.0-10.0) 08/26/19 05:30 RBC 4.73 M/mm3 (4.00-5.60) 08/26/19 05:30 Hgb 14.6 GM/dL (11.7-16.9) 08/26/19 05:30 Hct 44.0 % (35.4-49) 08/26/19 05:30 MCV 92.9 fl (80-96) 08/26/19 05:30 MCH 30.9 pg (25.7-33.7) 08/26/19 05:30 MCHC 33.2 g/dl (32.0-35.9) 08/26/19 05:30 RDW 16.1 % (11.9-15.9) H 08/26/19 05:30 Plt Count 266 K/MM3 (134-434) 08/26/19 05:30 MPV 7.1 fl (7.5-11.1) L 08/26/19 05:30 Sodium 134 mmol/L (136-145) L 08/26/19 05:30 Potassium 4.3 mmol/L (3.5-5.1) 08/26/19 05:30 Chloride 104 mmol/L (98-107) 08/26/19 05:30 Carbon Dioxide 25 mmol/L (21-32) 08/26/19 05:30 Anion Gap 5 MMOL/L (8-16) L 08/26/19 05:30 BUN 16.9 mg/dL (7-18) 08/26/19 05:30 Creatinine 1.0 mg/dL (0.55-1.3) 08/26/19 05:30 Est GFR (CKD-EPI)AfAm 95.06 08/26/19 05:30 Est GFR (CKD-EPI)NonAf 82.02 08/26/19 05:30 Random Glucose 112 mg/dL (74-106) H 08/26/19 05:30 Calcium 8.8 mg/dL (8.5-10.1) 08/26/19 05:30 Total Bilirubin 0.4 mg/dL (0.2-1) 08/26/19 05:30 AST 73 U/L (15-37) H 08/26/19 05:30 ALT 83 U/L (13-61) H 08/26/19 05:30 Alkaline Phosphatase 118 U/L (45-117) H 08/26/19 05:30 Total Protein 8.2 g/dl (6.4-8.2) 08/26/19 05:30 Albumin 3.8 g/dl (3.4-5.0) 08/26/19 05:30 RPR Titer Nonreactive (NONREACTIVE) 08/26/19 05:30 lab noted Assessment: 08/28/19 11:01 alcohol withdrawal Plan: librium regiment
[2019-08-28] MEDS: THIAMINE HCL 100 MG TABLET (FP) PO SCH (22:17)
[2019-08-28] MEDS: hydrOXYzine PAMOATE 25 MG CAPSULE (FP) PO PRN (22:17)
[2019-08-28] MEDS: METHOCARBAMOL 500 MG TABLET PO PRN (22:17)
[2019-08-29] MEDS: chlordiazePOXIDE HCL 10 MG CAPSULE PO SCH ×3 (06:04→17:25)
[2019-08-29] MEDS: PRENATAL VITAMINS W/ FOLIC ACID TABLET (FP) PO SCH (10:02)
--- NOTE | 2019-08-29 10:27 | PN ---
[facility] CIWA - CIWA Score Nausea/Vomitin-No Nausea/No Vomiting Muscle Tremors: 1-None Visible, but [place] Anxiety: 0-No Anxiety, at Ease Agitation: 0-Normal Activity Paroxysmal Sweats: 1-Minimal Palms Moist Orientation: 0-Oriented Tacttile Disturbances: 0-None Auditory Disturbances: 0-None Visual Disturbances: 1-Very Mild Sensitivity Headache: 0-None Present CIWA-Ar Total Score: 3 S Progress Note (SOAP) Subjective: 59 years old male admitted on 08/25/19 for alcohol withdrawal sx management treating with librium detox regiment feeling better today less tremor ambulating with walker steady gait discuss aftercare with staff Objective: 08/29/19 10:26 Vital Signs Temperature 97.0 F L 08/29/19 08:30 Pulse Rate 72 08/29/19 08:30 Respiratory Rate 17 08/29/19 08:30 Blood Pressure 102/59 L 08/29/19 08:30 O2 Sat by Pulse Oximetry (%) Laboratory Last Values WBC 4.7 K/mm3 (4.0-10.0) 08/26/19 05:30 RBC 4.73 M/mm3 (4.00-5.60) 08/26/19 05:30 Hgb 14.6 GM/dL (11.7-16.9) 08/26/19 05:30 Hct 44.0 % (35.4-49) 08/26/19 05:30 MCV 92.9 fl (80-96) 08/26/19 05:30 MCH 30.9 pg (25.7-33.7) 08/26/19 05:30 MCHC 33.2 g/dl (32.0-35.9) 08/26/19 05:30 RDW 16.1 % (11.9-15.9) H 08/26/19 05:30 Plt Count 266 K/MM3 (134-434) 08/26/19 05:30 MPV 7.1 fl (7.5-11.1) L 08/26/19 05:30 Sodium 134 mmol/L (136-145) L 08/26/19 05:30 Potassium 4.3 mmol/L (3.5-5.1) 08/26/19 05:30 Chloride 104 mmol/L (98-107) 08/26/19 05:30 Carbon Dioxide 25 mmol/L (21-32) 08/26/19 05:30 Anion Gap 5 MMOL/L (8-16) L 08/26/19 05:30 BUN 16.9 mg/dL (7-18) 08/26/19 05:30 Creatinine 1.0 mg/dL (0.55-1.3) 08/26/19 05:30 Est GFR (CKD-EPI)AfAm 95.06 08/26/19 05:30 Est GFR (CKD-EPI)NonAf 82.02 08/26/19 05:30 Random Glucose 112 mg/dL (74-106) H 08/26/19 05:30 Calcium 8.8 mg/dL (8.5-10.1) 08/26/19 05:30 Total Bilirubin 0.4 mg/dL (0.2-1) 08/26/19 05:30 AST 73 U/L (15-37) H 08/26/19 05:30 ALT 83 U/L (13-61) H 08/26/19 05:30 Alkaline Phosphatase 118 U/L (45-117) H 08/26/19 05:30 Total Protein 8.2 g/dl (6.4-8.2) 08/26/19 05:30 Albumin 3.8 g/dl (3.4-5.0) 08/26/19 05:30 RPR Titer Nonreactive (NONREACTIVE) 08/26/19 05:30 lab noted Assessment: 08/29/19 10:26 alcohol withdrawal Plan: librium regiment
[2019-08-29] MEDS: hydrOXYzine PAMOATE 25 MG CAPSULE (FP) PO PRN (22:11)
[2019-08-29] MEDS: THIAMINE HCL 100 MG TABLET (FP) PO SCH (22:11)
[2019-08-29] MEDS: METHOCARBAMOL 500 MG TABLET PO PRN (22:11)
[2019-08-29] MEDS: MELATONIN 5 MG TABLETS PO PRN (22:12)
[2019-08-30] MEDS ORDERED: chlordiazePOXIDE HCL 10 MG CAPSULE PO ONE (05:00)
[2019-08-30] MEDS: PRENATAL VITAMINS W/ FOLIC ACID TABLET (FP) PO SCH (10:13)
--- NOTE | 2019-08-30 10:36 | DS ---
[facility] Detox Discharge Summary Admission Date: 08/25/19 Discharge Date: 08/30/19 - History Present History: Alcohol Dependence Additional Comments: 59 years old male admitted on 08/25/19 for alcohol withdrawal sx management treated with librium detox regiment Mr Welsh has completed the librium regiment and is tolerated well alert oriented x 3 seen by psychiatrist no medical intervention at this time respiratory clear lungs bilaterally on auscultation ambulating with walker steady gait abdomen soft no rebound tenderness skin warm and dry Pertinent Past History: time for discharge 42 minutes - Physical Exam Results Vital Signs: Vital Signs Temperature 96.4 F L 08/30/19 08:44 Pulse Rate 78 08/30/19 08:44 Respiratory Rate 18 08/30/19 08:44 Blood Pressure 131/73 08/30/19 08:44 O2 Sat by Pulse Oximetry (%) Pertinent Admission Physical Exam Findings: alcohol withdrawal Vital Signs Temperature 97.3 F L 08/30/19 12:35 Pulse Rate 80 08/30/19 12:35 Respiratory Rate 18 08/30/19 12:35 Blood Pressure 128/65 08/30/19 12:35 O2 Sat by Pulse Oximetry (%) Laboratory Last Values WBC 4.7 K/mm3 (4.0-10.0) 08/26/19 05:30 RBC 4.73 M/mm3 (4.00-5.60) 08/26/19 05:30 Hgb 14.6 GM/dL (11.7-16.9) 08/26/19 05:30 Hct 44.0 % (35.4-49) 08/26/19 05:30 MCV 92.9 fl (80-96) 08/26/19 05:30 MCH 30.9 pg (25.7-33.7) 08/26/19 05:30 MCHC 33.2 g/dl (32.0-35.9) 08/26/19 05:30 RDW 16.1 % (11.9-15.9) H 08/26/19 05:30 Plt Count 266 K/MM3 (134-434) 08/26/19 05:30 MPV 7.1 fl (7.5-11.1) L 08/26/19 05:30 Sodium 134 mmol/L (136-145) L 08/26/19 05:30 Potassium 4.3 mmol/L (3.5-5.1) 08/26/19 05:30 Chloride 104 mmol/L (98-107) 08/26/19 05:30 Carbon Dioxide 25 mmol/L (21-32) 08/26/19 05:30 Anion Gap 5 MMOL/L (8-16) L 08/26/19 05:30 BUN 16.9 mg/dL (7-18) 08/26/19 05:30 Creatinine 1.0 mg/dL (0.55-1.3) 08/26/19 05:30 Est GFR (CKD-EPI)AfAm 95.06 08/26/19 05:30 Est GFR (CKD-EPI)NonAf 82.02 08/26/19 05:30 Random Glucose 112 mg/dL (74-106) H 08/26/19 05:30 Calcium 8.8 mg/dL (8.5-10.1) 08/26/19 05:30 Total Bilirubin 0.4 mg/dL (0.2-1) 08/26/19 05:30 AST 73 U/L (15-37) H 08/26/19 05:30 ALT 83 U/L (13-61) H 08/26/19 05:30 Alkaline Phosphatase 118 U/L (45-117) H 08/26/19 05:30 Total Protein 8.2 g/dl (6.4-8.2) 08/26/19 05:30 Albumin 3.8 g/dl (3.4-5.0) 08/26/19 05:30 RPR Titer Nonreactive (NONREACTIVE) 08/26/19 05:30 lab noted - Treatment Hospital Course: Detox Protocol Followed, Detoxed Safely, Responded well, Discharged Condition Good, Rehab Referral Accepted Patient [facility] - Medication Discharge Medications: Ambulatory Orders NK [No Known Home Medication] 08/19/17 - Diagnosis (1) Alcohol dependence with uncomplicated withdrawal Current Visit: Yes Status: Acute (2) Substance induced mood disorder Current Visit: Yes Status: Suspected (3) Asthma Current Visit: Yes Status: Chronic Qualifiers: Asthma severity: mild Asthma persistence: intermittent Asthma complication type: uncomplicated Qualified Code(s): J45.20 - Mild intermittent asthma, uncomplicated - AMA Did Patient Leave Against Medical Advice: No CIWA Score - CIWA Score Nausea/Vomitin-No Nausea/No Vomiting Muscle Tremors: 1-None Visible, but [place] Anxiety: 0-No Anxiety, at Ease Agitation: 0-Normal Activity Paroxysmal Sweats: 1-Minimal Palms Moist Orientation: 0-Oriented Tacttile Disturbances: 0-None Auditory Disturbances: 0-None Visual Disturbances: 0-None Headache: 0-None Present CIWA-Ar Total Score: 2
[2019-08-30 13:10] VITALS: BP 128/65; PULSE 80; TEMP 97.3
== END 2019-08-30 15:25 | disposition other institution (70) | DRG 897 ==
LOC: YASAS 12:20 → Y3N 14:26
PROVIDERS: ADMIT Allergy & Immunology; ATTEND Allergy & Immunology
PROC: HZ2ZZZZ Detoxification Services for Substance Abuse Treatment (ICD-10-PCS; principal; 2019-08-25)
DX: F10.230 Alcohol dependence with withdrawal, uncomplicated (principal); F17.210 Nicotine dependence, cigarettes, uncomplicated; F19.24 Other psychoactive substance dependence with psychoactive substance-induced mood disorder; F32.9 Major depressive disorder, single episode, unspecified; J45.20 Mild intermittent asthma, uncomplicated; Z87.01 Personal history of pneumonia (recurrent); Z86.19 Personal history of other infectious and parasitic diseases; Z96.643 Presence of artificial hip joint, bilateral; Z88.8 Allergy status to other drugs, medicaments and biological substances; Z91.5 Personal history of self-harm; Z59.0 Homelessness
CPT/HCPCS: 36415; 71046-TC-FY; 80053; 85027; 86593; 93005; 93010

== ENCOUNTER 2019-08-30 15:35 | Inpatient (IN) | payer OTHER ==
--- NOTE | 2019-08-30 14:36 | HP ---
[facility] Rehab Assess/Revision - Admission History Admitted to Rehab from: [facility] Date of Admission to Rehab: 08/30/19 - Findings Detox History & Physical reviewed: Yes Concur with findings: Yes Comments/Additional Findings: transferred from detox to rehab admission as per protocol Inpatient Rehab Admission - Rehab Decision to Admit Inpatient rehab admission?: Yes - Initial Determination Are CD services needed?: Yes Free of communicable disease: Yes Not in need of hospitalization: Yes - Rehab Admission Criteria Previous failed treatment: Yes Poor recovery environment: Yes Comorbidities: Yes Lacks judgement: Yes Patient is meeting Inpatient Rehab admission criteria:: Yes
[~2019-08-30 15:35] MED LIST: ACETAMINOPHEN 325 MG TABLET (FP) PO PRN; IBUPROFEN 400 MG TABLET (FP) PO PRN; LOPERAMIDE HCL 2 MG CAPSULE PO PRN; MAG HYDROX/AL HYDROX/SIMETH 30 ML UNIT-DOSE CUP PO PRN; MAGNESIUM CITRATE 300 ML BOTTLE PO PRN; MAGNESIUM HYDROX 2400MG/30ML ORAL SUSPENSION 30 ML CUP PO PRN; MENTHOL/PHENOL 1 EACH UD MM PRN; P-EPHED 60MG/TRIPROLIDI 2.5MG TABLET PO PRN; guaiFENesin 200 MG/10 ML 10 ML UNIT-DOSE CUPS PO PRN
[2019-08-30] MEDS: MELATONIN 5 MG TABLETS PO PRN (21:14)
[2019-08-30] MEDS: THIAMINE HCL 100 MG TABLET (FP) PO SCH (21:14)
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
[2019-08-31] MEDS: PRENATAL VITAMINS W/ FOLIC ACID TABLET (FP) PO SCH (10:53)
--- NOTE | 2019-08-31 15:40 | PN ---
S Progress Note Note: Pt is a 59 y/o male with a hx of KELVIN-alcohol admitted to rehab after detox completion on . PMHx:Steve. Hip Replacement(uses walker),CABG; Psych Hx: Depression. Vital Signs - 24 hr 08/31/19 08/31/19 08/31/19 00:30 03:39 07:21 Temperature 97.7 F Pulse Rate 73 Respiratory 17 17 18 Rate Blood Pressure 120/74 Alert o x 3 nad oob ambulating with walker extremities/skin:no edema,dry skin;skin intact. A/P KELVIN Dry skin dermatitis right ankle s/p detox Maintain safety Eucerin cream daily as directed Aveeno soap cont rehab
[2019-08-31] MEDS: THIAMINE HCL 100 MG TABLET (FP) PO SCH (21:20)
[2019-08-31] MEDS: MELATONIN 5 MG TABLETS PO PRN (21:20)
[2019-08-31] MEDS ORDERED: SUVOREXANT 5 MG TABLET PO PRN (22:00)
[2019-09-01] MEDS: PRENATAL VITAMINS W/ FOLIC ACID TABLET (FP) PO SCH (10:11)
[2019-09-01] MEDS: THIAMINE HCL 100 MG TABLET (FP) PO SCH (21:16)
[2019-09-01] MEDS: MELATONIN 5 MG TABLETS PO PRN (21:17)
[2019-09-02] MEDS: PRENATAL VITAMINS W/ FOLIC ACID TABLET (FP) PO SCH (10:05)
[2019-09-02] MEDS ORDERED: COLLOIDAL OATMEAL 1 BAR EACH TP PRN (13:56)
[2019-09-02] MEDS: MINERAL OIL/PETROLAT/WATER TOPICAL CREAM 113 GM JAR TP SCH (16:38)
[2019-09-02] MEDS: THIAMINE HCL 100 MG TABLET (FP) PO SCH (21:08)
[2019-09-02] MEDS: MELATONIN 5 MG TABLETS PO PRN (21:08)
[2019-09-03] MEDS: MINERAL OIL/PETROLAT/WATER TOPICAL CREAM 113 GM JAR TP SCH (10:13)
[2019-09-03] MEDS: PRENATAL VITAMINS W/ FOLIC ACID TABLET (FP) PO SCH (10:13)
[2019-09-03] MEDS: MELATONIN 5 MG TABLETS PO PRN (21:17)
[2019-09-03] MEDS: THIAMINE HCL 100 MG TABLET (FP) PO SCH (21:17)
[2019-09-04] MEDS: MINERAL OIL/PETROLAT/WATER TOPICAL CREAM 113 GM JAR TP SCH (09:52)
[2019-09-04] MEDS: PRENATAL VITAMINS W/ FOLIC ACID TABLET (FP) PO SCH (09:52)
[2019-09-04] MEDS: THIAMINE HCL 100 MG TABLET (FP) PO SCH (21:13)
[2019-09-04] MEDS: MELATONIN 5 MG TABLETS PO PRN (21:13)
[2019-09-05] MEDS: MINERAL OIL/PETROLAT/WATER TOPICAL CREAM 113 GM JAR TP SCH (11:10)
[2019-09-05] MEDS: PRENATAL VITAMINS W/ FOLIC ACID TABLET (FP) PO SCH (11:10)
[2019-09-05] MEDS: MELATONIN 5 MG TABLETS PO PRN (21:14)
[2019-09-05] MEDS: THIAMINE HCL 100 MG TABLET (FP) PO SCH (21:14)
[2019-09-06] MEDS: MINERAL OIL/PETROLAT/WATER TOPICAL CREAM 113 GM JAR TP SCH (10:17)
[2019-09-06] MEDS: PRENATAL VITAMINS W/ FOLIC ACID TABLET (FP) PO SCH (10:17)
[2019-09-06] MEDS: MELATONIN 5 MG TABLETS PO PRN (21:09)
[2019-09-06] MEDS: THIAMINE HCL 100 MG TABLET (FP) PO SCH (21:09)
[2019-09-07] MEDS: PRENATAL VITAMINS W/ FOLIC ACID TABLET (FP) PO SCH (09:59)
[2019-09-07] MEDS: MINERAL OIL/PETROLAT/WATER TOPICAL CREAM 113 GM JAR TP SCH (09:59)
[2019-09-07] MEDS: MELATONIN 5 MG TABLETS PO PRN (21:10)
[2019-09-07] MEDS: THIAMINE HCL 100 MG TABLET (FP) PO SCH (21:10)
[2019-09-08 07:13] VITALS: PULSE 69
[2019-09-08] MEDS: PRENATAL VITAMINS W/ FOLIC ACID TABLET (FP) PO SCH (10:44)
[2019-09-08] MEDS: MINERAL OIL/PETROLAT/WATER TOPICAL CREAM 113 GM JAR TP SCH (10:44)
--- NOTE | 2019-09-08 14:06 | DS ---
[facility] Rehab Discharge Summary - [facility] Rehab Discharge Summary Admission Date: 08/30/19 Discharge Date: 09/09/19 - History Present History: Alcohol dependence Additional Comments: Pt is a 59 y/o male with a hx of KELVIN admitted to rehab abd scheduled for discharge on 09/09/19. Pt has been referred to [facility] for CD aftercare. Pt reports he has a primary care provider, Dr. Anay Henry at [place], [place] Pertinent Past History: Asthma CAD-CABG Toshia. Hip Replacement Use of Walker for ambulation Mood Disorder - Discharge Physical Exam Vital Signs: Vital Signs Temperature 97.8 F 09/08/19 07:12 Pulse Rate 69 09/08/19 07:12 Respiratory Rate 18 09/08/19 07:12 Blood Pressure 123/72 09/08/19 07:12 O2 Sat by Pulse Oximetry (%) Alert o x 3,denies s/h/i nad oob ambulating with walker cardiac:s1 s2,rrr lungs:cta,toshia. abdomen:+bs,soft,nt,nd extremities/skin:no edema;skin intact. Pertinent Admission Physical Exam Findings: Status stable and unchanged - Treatment Discharge Condition: Discharge condition good Hospital Course: Rehabilitate safely Responded well CD aftercare referral accepted attended and participated in groups and individual sessions while in treatment. - Medication Discharge Medications: Ambulatory Orders NK [No Known Home Medication] 08/19/17 - Medication-Assisted Treatment (MAT) Medication-Assisted Treatment (MAT): No - Discharge Instructions Diet, activity, other medical instructions: Diet:Regular Activity: oob ad catracho with walker Other medical instructions:follow up with CD aftercare recommendations as scheduled. follow up with primary care provider within 1 week after discharge. - Diagnosis (1) Walker as ambulation aid Status: Chronic (2) Alcohol dependence Status: Chronic Qualifiers: Substance use status: uncomplicated Qualified Code(s): F10.20 - Alcohol dependence, uncomplicated (3) Asthma Status: Chronic Qualifiers: Asthma severity: mild Asthma persistence: unspecified Asthma complication type: unspecified Qualified Code(s): J45.909 - Unspecified asthma, uncomplicated (4) H/O bilateral hip replacements Status: Chronic - Follow-up Referral Minutes to complete discharge: 25 - AMA Did Patient Leave Against Medical Advice: No
[2019-09-08] MEDS: THIAMINE HCL 100 MG TABLET (FP) PO SCH (21:05)
[2019-09-08] MEDS: MELATONIN 5 MG TABLETS PO PRN (21:05)
[2019-09-09 07:00] VITALS: BP 105/65; TEMP 97.5
== END 2019-09-09 10:00 | disposition home or self-care (01) | DRG 895 ==
LOC: YASAS 15:35 → Y5N 15:36
PROVIDERS: ADMIT Allergy & Immunology; ATTEND Allergy & Immunology
PROC: HZ42ZZZ Group Counseling for Substance Abuse Treatment, Cognitive-Behavioral (ICD-10-PCS; principal; 2019-08-30)
DX: F10.20 Alcohol dependence, uncomplicated (principal); F10.24 Alcohol dependence with alcohol-induced mood disorder; G47.00 Insomnia, unspecified; J45.909 Unspecified asthma, uncomplicated; L85.3 Xerosis cutis; I25.10 Atherosclerotic heart disease of native coronary artery without angina pectoris; Z95.1 Presence of aortocoronary bypass graft; Z86.19 Personal history of other infectious and parasitic diseases; Z96.643 Presence of artificial hip joint, bilateral; Z99.89 Dependence on other enabling machines and devices; Z91.5 Personal history of self-harm; Z88.6 Allergy status to analgesic agent; Z91.410 Personal history of adult physical and sexual abuse

== ENCOUNTER 2020-01-03 09:42 | Inpatient (IN) | payer OTHER ==
--- NOTE | 2020-01-03 10:02 | BHS.RME ---
Substance Use & Tx History - Substance Use History Alcohol Substance amount: 2 pints vodka Frequency of use: Daily Substance route: Oral Date of Last Use: 01/02/20 Physical/Psych/Mental Status - Behavior General Behavior: Increased activity (restlessness, agitation) Eye Contact: Normal - Cooperativeness Cooperativeness: Cooperative - Thinking Thought Processes: Tight, Logical, Goal Directed - Physical Health Problems Is patient presently having any pain?: No Does patient presently have any injuries (include location): No Does patient currently have a fever: No Is patient : No CIWA Nausea/Vomitin-No Nausea/No Vomiting Muscle Tremors: 1-None Visible, but [place] Anxiety: 4-Mod. Anxious/Guarded Agitation: 3 Paroxysmal Sweats: 4-Forehead w/Sweat Beads Orientation: 0-Oriented Tacttile Disturbances: 2-Mild Itch/Numbness/Burn Auditory Disturbances: 0-None Visual Disturbances: 0-None Headache: 0-None Present CIWA-Ar Total Score: 14
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
[2020-01-03] MEDS ORDERED: MAG HYDROX/AL HYDROX/SIMETH 30 ML UNIT-DOSE CUP PO PRN (10:36)
[2020-01-03] MEDS ORDERED: IBUPROFEN 400 MG TABLET (FP) PO PRN (10:36)
[2020-01-03] MEDS ORDERED: MENTHOL/PHENOL 1 EACH UD MM PRN (10:36)
[2020-01-03] MEDS ORDERED: ACETAMINOPHEN 325 MG TABLET (FP) PO PRN ×2 (10:36)
[2020-01-03] MEDS ORDERED: chlordiazePOXIDE HCL 25 MG CAPSULE PO PRN (10:36)
[2020-01-03] MEDS ORDERED: MAGNESIUM HYDROX 2400MG/30ML ORAL SUSPENSION 30 ML CUP PO PRN (10:36)
[2020-01-03] MEDS ORDERED: ONDANSETRON *ODT* 4 MG TABLET SL PRN (10:36)
[2020-01-03] MEDS ORDERED: BISMUTH SUBSALICYLATE 524 MG/30 ML UD PO PRN (10:36)
[2020-01-03] MEDS ORDERED: MAGNESIUM CITRATE 300 ML BOTTLE PO PRN (10:36)
[2020-01-03 10:37] VITALS: BMI 26.1
[2020-01-03] MEDS: chlordiazePOXIDE HCL 25 MG CAPSULE PO SCH ×3 (12:00→22:05)
[2020-01-03] MEDS: PRENATAL VITAMINS W/ FOLIC ACID TABLET (FP) PO SCH (12:01)
[2020-01-03] MEDS: hydrOXYzine PAMOATE 25 MG CAPSULE (FP) PO SCH ×3 (13:04→22:03)
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
[2020-01-03 16:43] LABS: HEMATOCRIT 45.1 % (35.4-49); HEMOGLOBIN 14.8 GM/dL (11.7-16.9); MCH 30.7 pg (25.7-33.7); MCHC 32.8 g/dl (32.0-35.9); MEAN CELL VOLUME 93.6 fl (80-96); MEAN PLT VOLUME 7.2 fl (7.5-11.1); PLATELET COUNT 254 K/MM3 (134-434); RBC 4.82 M/mm3 (4.00-5.60); RDW 16.6 % (11.9-15.9); WHITE BLOOD COUNT 5.4 K/mm3 (4.0-10.0)
[2020-01-03 16:53] LABS: ALBUMIN 3.9 g/dl (3.4-5.0); BILIRUBIN,TOTAL 0.4 mg/dL (0.2-1); BLOOD UREA NITROGEN 9.9 mg/dL (7-18); CALCIUM 8.4 mg/dL (8.5-10.1); CREATININE 0.9 mg/dL (0.55-1.3); POTASSIUM 4.4 mmol/L (3.5-5.1)
[2020-01-03] MEDS: THIAMINE HCL 100 MG TABLET (FP) PO SCH (22:03)
[2020-01-03] MEDS: MELATONIN 5 MG TABLETS PO SCH (22:03)
[2020-01-04] MEDS: hydrOXYzine PAMOATE 25 MG CAPSULE (FP) PO SCH ×5 (06:22→22:12)
[2020-01-04] MEDS: chlordiazePOXIDE HCL 25 MG CAPSULE PO SCH ×4 (06:22→22:12)
[2020-01-04] MEDS: PRENATAL VITAMINS W/ FOLIC ACID TABLET (FP) PO SCH (10:33)
--- NOTE | 2020-01-04 11:49 | PN ---
S CIWA - CIWA Score Nausea/Vomitin-No Nausea/No Vomiting Muscle Tremors: 3 Anxiety: 5 Agitation: 3 Paroxysmal Sweats: 1-Minimal Palms Moist Orientation: 0-Oriented Tacttile Disturbances: 0-None Auditory Disturbances: 0-None Visual Disturbances: 0-None Headache: 0-None Present CIWA-Ar Total Score: 12 BHS Progress Note (SOAP) Subjective: pt is a 59 y/o male admitted to detox for alcohol withdrawals. Pt is aon Librium regimen. c/o anxiety and "depressed, that's all". Pt seen in bed, awake and quiet but responds pleasantly.Denies s/h/i. Reports Hip replacement 14 yrs ago and uses walker for ambulation. Objective: 01/04/20 11:47 Vital Signs 01/04/20 01/04/20 06:32 09:50 Temperature 97.1 F L 98.0 F Pulse Rate 65 66 Respiratory 18 16 Rate Blood Pressure 136/78 124/72 O2 Sat by Pulse 96 95 Oximetry (%) Laboratory Tests 01/03/20 01/03/20 01/03/20 10:55 10:55 10:55 WBC 5.4 RBC 4.82 Hgb 14.8 Hct 45.1 MCV 93.6 MCH 30.7 MCHC 32.8 RDW 16.6 H Plt Count 254 MPV 7.2 L Sodium 139 Potassium 4.4 Chloride 106 Carbon Dioxide 28 Anion Gap 5 L BUN 9.9 Creatinine 0.9 Est GFR (CKD-EPI)AfAm 107.97 Est GFR (CKD-EPI)NonAf 93.16 Random Glucose 143 H Calcium 8.4 L Total Bilirubin 0.4 AST 24 ALT 33 Alkaline Phosphatase 144 H Total Protein 8.0 Albumin 3.9 Syphilis Serology Non-reactive other lab results and covid-19 result pending Assessment: 01/04/20 11:48 withdrawal sx Plan: cont detox increase po fluids maintain safety follow up with psych consult Repeat CMP; INR in A.M
[2020-01-04 19:42] LABS: PH,URINE 6.5 (5.0-8.0); URINE APPEARANCE CLEAR; URINE BILIRUBIN NEGATIVE (NEGATIVE); URINE COLOR YELLOW; URINE GLUCOSE (UA) NEGATIVE (NEGATIVE); URINE KETONE NEGATIVE (NEGATIVE); URINE LEUK ESTERASE NEGATIVE (NEGATIVE); URINE NITRITE NEGATIVE (NEGATIVE); URINE PROTEIN NEGATIVE (NEGATIVE); URINE UROBILINOGEN 0.2 mg/dL (0.2-1.0)
[2020-01-04] MEDS: MELATONIN 5 MG TABLETS PO SCH (22:11)
[2020-01-04] MEDS: THIAMINE HCL 100 MG TABLET (FP) PO SCH (22:12)
[2020-01-05] MEDS: hydrOXYzine PAMOATE 25 MG CAPSULE (FP) PO SCH ×5 (06:08→22:11)
[2020-01-05] MEDS: chlordiazePOXIDE HCL 25 MG CAPSULE PO SCH ×4 (06:08→22:12)
[2020-01-05] MEDS: PRENATAL VITAMINS W/ FOLIC ACID TABLET (FP) PO SCH (10:35)
--- NOTE | 2020-01-05 11:45 | PN ---
S CIWA - CIWA Score Nausea/Vomitin-No Nausea/No Vomiting Muscle Tremors: 3 Anxiety: 3 Agitation: 3 Paroxysmal Sweats: 1-Minimal Palms Moist Orientation: 0-Oriented Tacttile Disturbances: 0-None Auditory Disturbances: 0-None Visual Disturbances: 0-None Headache: 0-None Present CIWA-Ar Total Score: 10 BHS Progress Note (SOAP) Subjective: Pt is mor communicative today. Reminiscing his "loneliness leading to drinking" and desire to get his life together. slight anxiety, sweats. Nurse Yudy Woods reports pt refused librium this morning. Pt was spoken to by this database report writer and pt says he does not need it at that time and will take when he feels anxious and tremors because he has detoxed many times and knows when he needs it. Objective: 01/05/20 11:45 Vital Signs 01/05/20 06:49 Temperature 98.4 F Pulse Rate 72 Respiratory 18 Rate Blood Pressure 141/78 O2 Sat by Pulse 97 Oximetry (%) Laboratory Tests 01/03/20 01/03/20 01/03/20 10:55 10:55 10:55 WBC 5.4 RBC 4.82 Hgb 14.8 Hct 45.1 MCV 93.6 MCH 30.7 MCHC 32.8 RDW 16.6 H Plt Count 254 MPV 7.2 L Sodium 139 Potassium 4.4 Chloride 106 Carbon Dioxide 28 Anion Gap 5 L BUN 9.9 Creatinine 0.9 Est GFR (CKD-EPI)AfAm 107.97 Est GFR (CKD-EPI)NonAf 93.16 Random Glucose 143 H Calcium 8.4 L Total Bilirubin 0.4 AST 24 ALT 33 Alkaline Phosphatase 144 H Total Protein 8.0 Albumin 3.9 Urine Color Urine Appearance Urine pH Ur Specific [place] Urine Protein Urine Glucose (UA) Urine Ketones Urine Blood Urine Nitrite Urine Bilirubin Urine Urobilinogen Ur Leukocyte Esterase Syphilis Serology Non-reactive COVID-19 ([facility]) 01/03/20 01/04/20 12:15 16:02 WBC RBC Hgb Hct MCV MCH MCHC RDW Plt Count MPV Sodium Potassium Chloride Carbon Dioxide Anion Gap BUN Creatinine Est GFR (CKD-EPI)AfAm Est GFR (CKD-EPI)NonAf Random Glucose Calcium Total Bilirubin AST ALT Alkaline Phosphatase Total Protein Albumin Urine Color Yellow Urine Appearance Clear Urine pH 6.5 D Ur Specific [place] 1.039 H Urine Protein Negative Urine Glucose (UA) Negative Urine Ketones Negative Urine Blood Negative Urine Nitrite Negative Urine Bilirubin Negative Urine Urobilinogen 0.2 Ur Leukocyte Esterase Negative Syphilis Serology COVID-19 ([facility]) Not detected covid-19 not detected Repeat lab results pending Alert o x 3 nad oob with steady gait with walker. Assessment: 01/05/20 11:46 mild withdrawal sx Plan: cont detox po fluids as tolerated maintain safety
[2020-01-05 15:25] LABS: INR 0.91 (0.83-1.09); PROTHROMBIN TIME (PATIENT) 10.7 SEC (9.7-13.0)
[2020-01-05 15:35] LABS: ALBUMIN 3.5 g/dl (3.4-5.0); BLOOD UREA NITROGEN 13.4 mg/dL (7-18); CALCIUM 9.1 mg/dL (8.5-10.1); CREATININE 0.8 mg/dL (0.55-1.3); POTASSIUM 4.3 mmol/L (3.5-5.1); TOT PROT 7.4 g/dl (6.4-8.2)
[2020-01-05 15:43] LABS: BILIRUBIN,TOTAL 0.3 mg/dL (0.2-1)
[2020-01-05] MEDS: METHOCARBAMOL 500 MG TABLET PO PRN (22:11)
[2020-01-05] MEDS: THIAMINE HCL 100 MG TABLET (FP) PO SCH (22:11)
[2020-01-05] MEDS: MELATONIN 5 MG TABLETS PO SCH (22:11)
[2020-01-06] MEDS ORDERED: chlordiazePOXIDE HCL 10 MG CAPSULE PO PRN
[2020-01-06] MEDS: hydrOXYzine PAMOATE 25 MG CAPSULE (FP) PO SCH ×5 (06:07→22:08)
[2020-01-06] MEDS: chlordiazePOXIDE HCL 10 MG CAPSULE PO SCH ×4 (06:08→22:50)
[2020-01-06] MEDS: PRENATAL VITAMINS W/ FOLIC ACID TABLET (FP) PO SCH (10:55)
--- NOTE | 2020-01-06 15:11 | PN ---
S CIWA - CIWA Score Nausea/Vomitin-No Nausea/No Vomiting Muscle Tremors: 1-None Visible, but [place] Anxiety: 2 Agitation: 0-Normal Activity Paroxysmal Sweats: No Perspiration Orientation: 0-Oriented Tacttile Disturbances: 0-None Auditory Disturbances: 0-None Visual Disturbances: 0-None Headache: 0-None Present CIWA-Ar Total Score: 3 BHS Progress Note (SOAP) Subjective: pt reports feeling better except intermittent sleep. Lying comfortably in bed at rounds. Objective: 01/06/20 15:07 Vital Signs - 8 hr 01/06/20 09:14 Temperature 98 F Pulse Rate 68 Respiratory 18 Rate Blood Pressure 105/63 Laboratory Tests 01/03/20 01/03/20 01/03/20 10:55 10:55 10:55 WBC 5.4 RBC 4.82 Hgb 14.8 Hct 45.1 MCV 93.6 MCH 30.7 MCHC 32.8 RDW 16.6 H Plt Count 254 MPV 7.2 L PT with INR INR Sodium 139 Potassium 4.4 Chloride 106 Carbon Dioxide 28 Anion Gap 5 L BUN 9.9 Creatinine 0.9 Est GFR (CKD-EPI)AfAm 107.97 Est GFR (CKD-EPI)NonAf 93.16 Random Glucose 143 H Calcium 8.4 L Total Bilirubin 0.4 AST 24 ALT 33 Alkaline Phosphatase 144 H Total Protein 8.0 Albumin 3.9 Urine Color Urine Appearance Urine pH Ur Specific [place] Urine Protein Urine Glucose (UA) Urine Ketones Urine Blood Urine Nitrite Urine Bilirubin Urine Urobilinogen Ur Leukocyte Esterase Syphilis Serology Non-reactive COVID-19 ([facility]) 01/03/20 01/04/20 01/05/20 12:15 16:02 10:00 WBC RBC Hgb Hct MCV MCH MCHC RDW Plt Count MPV PT with INR INR Sodium 140 Potassium 4.3 Chloride 103 Carbon Dioxide 31 Anion Gap 6 L BUN 13.4 Creatinine 0.8 Est GFR (CKD-EPI)AfAm 113.33 Est GFR (CKD-EPI)NonAf 97.78 Random Glucose 81 Calcium 9.1 Total Bilirubin 0.3 AST 22 ALT 31 Alkaline Phosphatase 128 H Total Protein 7.4 Albumin 3.5 Urine Color Yellow Urine Appearance Clear Urine pH 6.5 D Ur Specific [place] 1.039 H Urine Protein Negative Urine Glucose (UA) Negative Urine Ketones Negative Urine Blood Negative Urine Nitrite Negative Urine Bilirubin Negative Urine Urobilinogen 0.2 Ur Leukocyte Esterase Negative Syphilis Serology COVID-19 ([facility]) Not detected 01/05/20 10:00 WBC RBC Hgb Hct MCV MCH MCHC RDW Plt Count MPV PT with INR 10.70 INR 0.91 Sodium Potassium Chloride Carbon Dioxide Anion Gap BUN Creatinine Est GFR (CKD-EPI)AfAm Est GFR (CKD-EPI)NonAf Random Glucose Calcium Total Bilirubin AST ALT Alkaline Phosphatase Total Protein Albumin Urine Color Urine Appearance Urine pH Ur Specific [place] Urine Protein Urine Glucose (UA) Urine Ketones Urine Blood Urine Nitrite Urine Bilirubin Urine Urobilinogen Ur Leukocyte Esterase Syphilis Serology COVID-19 ([facility]) covid-19 not detected repeat CMP grossly improved Alert o x 3 nad oob ambulating with steady gait Assessment: 01/06/20 15:08 mild withdrawal sx Plan: cont detox increase po fluids maintain safety
[2020-01-06] MEDS: METHOCARBAMOL 500 MG TABLET PO PRN (22:08)
[2020-01-06] MEDS: THIAMINE HCL 100 MG TABLET (FP) PO SCH (22:08)
[2020-01-06] MEDS: MELATONIN 5 MG TABLETS PO SCH (22:08)
[2020-01-07] MEDS: hydrOXYzine PAMOATE 25 MG CAPSULE (FP) PO SCH ×5 (06:39→22:23)
[2020-01-07] MEDS: chlordiazePOXIDE HCL 10 MG CAPSULE PO SCH ×2 (06:40→17:28)
--- NOTE | 2020-01-07 09:49 | PN ---
[facility] CIWA - CIWA Score Nausea/Vomitin-No Nausea/No Vomiting Muscle Tremors: None Anxiety: 2 Agitation: 0-Normal Activity Paroxysmal Sweats: 1-Minimal Palms Moist Orientation: 0-Oriented Tacttile Disturbances: 0-None Auditory Disturbances: 0-None Visual Disturbances: 0-None Headache: 0-None Present CIWA-Ar Total Score: 3 BHS Progress Note (SOAP) Subjective: c/o mild withdrawal symptoms. Objective: 01/07/20 09:48 Vital Signs 01/07/20 01/07/20 06:07 08:36 Temperature 97.3 F L 97.5 F L Pulse Rate 67 72 Respiratory 16 18 Rate Blood Pressure 137/79 125/62 Laboratory Last Values WBC 5.4 K/mm3 (4.0-10.0) 01/03/20 10:55 RBC 4.82 M/mm3 (4.00-5.60) 01/03/20 10:55 Hgb 14.8 GM/dL (11.7-16.9) 01/03/20 10:55 Hct 45.1 % (35.4-49) 01/03/20 10:55 MCV 93.6 fl (80-96) 01/03/20 10:55 MCH 30.7 pg (25.7-33.7) 01/03/20 10:55 MCHC 32.8 g/dl (32.0-35.9) 01/03/20 10:55 RDW 16.6 % (11.9-15.9) H 01/03/20 10:55 Plt Count 254 K/MM3 (134-434) 01/03/20 10:55 MPV 7.2 fl (7.5-11.1) L 01/03/20 10:55 PT with INR 10.70 SEC (9.7-13.0) 01/05/20 10:00 INR 0.91 (0.83-1.09) 01/05/20 10:00 Sodium 140 mmol/L (136-145) 01/05/20 10:00 Potassium 4.3 mmol/L (3.5-5.1) 01/05/20 10:00 Chloride 103 mmol/L (98-107) 01/05/20 10:00 Carbon Dioxide 31 mmol/L (21-32) 01/05/20 10:00 Anion Gap 6 MMOL/L (8-16) L 01/05/20 10:00 BUN 13.4 mg/dL (7-18) 01/05/20 10:00 Creatinine 0.8 mg/dL (0.55-1.3) 01/05/20 10:00 Est GFR (CKD-EPI)AfAm 113.33 01/05/20 10:00 Est GFR (CKD-EPI)NonAf 97.78 01/05/20 10:00 Random Glucose 81 mg/dL (74-106) 01/05/20 10:00 Calcium 9.1 mg/dL (8.5-10.1) 01/05/20 10:00 Total Bilirubin 0.3 mg/dL (0.2-1) 01/05/20 10:00 AST 22 U/L (15-37) 01/05/20 10:00 ALT 31 U/L (13-61) 01/05/20 10:00 Alkaline Phosphatase 128 U/L (45-117) H 01/05/20 10:00 Total Protein 7.4 g/dl (6.4-8.2) 01/05/20 10:00 Albumin 3.5 g/dl (3.4-5.0) 01/05/20 10:00 Urine Color Yellow 01/04/20 16:02 Urine Appearance Clear 01/04/20 16:02 Urine pH 6.5 (5.0-8.0) D 01/04/20 16:02 Ur Specific [place] 1.039 (1.010-1.035) H 01/04/20 16:02 Urine Protein Negative (NEGATIVE) 01/04/20 16:02 Urine Glucose (UA) Negative (NEGATIVE) 01/04/20 16:02 Urine Ketones Negative (NEGATIVE) 01/04/20 16:02 Urine Blood Negative (NEGATIVE) 01/04/20 16:02 Urine Nitrite Negative (NEGATIVE) 01/04/20 16:02 Urine Bilirubin Negative (NEGATIVE) 01/04/20 16:02 Urine Urobilinogen 0.2 mg/dL (0.2-1.0) 01/04/20 16:02 Ur Leukocyte Esterase Negative (NEGATIVE) 01/04/20 16:02 Syphilis Serology Non-reactive (NONREACTIVE) 01/03/20 10:55 COVID-19 ([facility]) Not detected (Not Detected) 01/03/20 12:15 Labs noted. Assessment: 01/07/20 09:48 AOX3, in no acute respiratory distress. Full ROM, ambulating in the unit. Mild Withdrawal symptoms. For d/c tomorrow. Plan: continue detox. D/C in AM.
[2020-01-07] MEDS: PRENATAL VITAMINS W/ FOLIC ACID TABLET (FP) PO SCH (10:16)
[2020-01-07] MEDS: MELATONIN 5 MG TABLETS PO SCH (22:23)
[2020-01-07] MEDS: THIAMINE HCL 100 MG TABLET (FP) PO SCH (22:23)
[2020-01-08] MEDS ORDERED: chlordiazePOXIDE HCL 10 MG CAPSULE PO ONE (05:00)
[2020-01-08] MEDS: hydrOXYzine PAMOATE 25 MG CAPSULE (FP) PO SCH ×2 (06:43→10:09)
[2020-01-08] MEDS: PRENATAL VITAMINS W/ FOLIC ACID TABLET (FP) PO SCH (10:10)
[2020-01-08 10:18] VITALS: BP 128/76; PULSE 84; TEMP 97.7
--- NOTE | 2020-01-08 12:08 | DS ---
[facility] Detox Discharge Summary Admission Date: 01/03/20 Discharge Date: 01/08/20 - History Present History: Alcohol Dependence Additional Comments: 59 years old male admitted on 01/03/20 for alcohol withdrawal sx management treated with librium detox regiment seen by psychiatrist ivis dumont mr natarajan has completed the librium regiment and is tolerated well alert oriented x 3 speech clearly coherently respiratory clear lung sounds bilaterally on auscultation abdomen soft no rebound tenderness skin warm and dry Pertinent Past History: time for discharge 35 minutes - Physical Exam Results Vital Signs: Vital Signs Temperature 97.7 F 01/08/20 08:37 Pulse Rate 84 01/08/20 08:37 Respiratory Rate 18 01/08/20 08:37 Blood Pressure 128/76 01/08/20 08:37 O2 Sat by Pulse Oximetry (%) 97 01/07/20 20:30 Pertinent Admission Physical Exam Findings: alcohol withdrawal Laboratory Tests 01/03/20 01/03/20 01/03/20 10:55 10:55 10:55 WBC 5.4 RBC 4.82 Hgb 14.8 Hct 45.1 MCV 93.6 MCH 30.7 MCHC 32.8 RDW 16.6 H Plt Count 254 MPV 7.2 L PT with INR INR Sodium 139 Potassium 4.4 Chloride 106 Carbon Dioxide 28 Anion Gap 5 L BUN 9.9 Creatinine 0.9 Est GFR (CKD-EPI)AfAm 107.97 Est GFR (CKD-EPI)NonAf 93.16 Random Glucose 143 H Calcium 8.4 L Total Bilirubin 0.4 AST 24 ALT 33 Alkaline Phosphatase 144 H Total Protein 8.0 Albumin 3.9 Urine Color Urine Appearance Urine pH Ur Specific [place] Urine Protein Urine Glucose (UA) Urine Ketones Urine Blood Urine Nitrite Urine Bilirubin Urine Urobilinogen Ur Leukocyte Esterase Syphilis Serology Non-reactive COVID-19 ([facility]) 01/03/20 01/04/20 01/05/20 12:15 16:02 10:00 WBC RBC Hgb Hct MCV MCH MCHC RDW Plt Count MPV PT with INR INR Sodium 140 Potassium 4.3 Chloride 103 Carbon Dioxide 31 Anion Gap 6 L BUN 13.4 Creatinine 0.8 Est GFR (CKD-EPI)AfAm 113.33 Est GFR (CKD-EPI)NonAf 97.78 Random Glucose 81 Calcium 9.1 Total Bilirubin 0.3 AST 22 ALT 31 Alkaline Phosphatase 128 H Total Protein 7.4 Albumin 3.5 Urine Color Yellow Urine Appearance Clear Urine pH 6.5 D Ur Specific [place] 1.039 H Urine Protein Negative Urine Glucose (UA) Negative Urine Ketones Negative Urine Blood Negative Urine Nitrite Negative Urine Bilirubin Negative Urine Urobilinogen 0.2 Ur Leukocyte Esterase Negative Syphilis Serology COVID-19 ([facility]) Not detected 01/05/20 10:00 WBC RBC Hgb Hct MCV MCH MCHC RDW Plt Count MPV PT with INR 10.70 INR 0.91 Sodium Potassium Chloride Carbon Dioxide Anion Gap BUN Creatinine Est GFR (CKD-EPI)AfAm Est GFR (CKD-EPI)NonAf Random Glucose Calcium Total Bilirubin AST ALT Alkaline Phosphatase Total Protein Albumin Urine Color Urine Appearance Urine pH Ur Specific [place] Urine Protein Urine Glucose (UA) Urine Ketones Urine Blood Urine Nitrite Urine Bilirubin Urine Urobilinogen Ur Leukocyte Esterase Syphilis Serology COVID-19 ([facility]) lab noted - Treatment Hospital Course: Detox Protocol Followed, Detoxed Safely, Responded well, D ischarged Condition Good, Rehab Referral Accepted Patient has Accepted [facility] Referral [facility] - Medication Discharge Medications: Ambulatory Orders NK [No Known Home Medication] 08/19/17 - Diagnosis (1) Alcohol dependence with uncomplicated withdrawal Status: Acute (2) Asthma Status: Chronic Qualifiers: Asthma severity: mild Asthma persistence: intermittent Asthma complication type: with status asthmaticus Qualified Code(s): J45.22 - Mild intermittent asthma with status asthmaticus (3) Walker as ambulation aid Status: Chronic (4) Substance induced mood disorder Status: Suspected - AMA Did Patient Leave Against Medical Advice: No CIWA Score - CIWA Score Nausea/Vomitin-No Nausea/No Vomiting Muscle Tremors: None Anxiety: 1-Mildly Anxious Agitation: 0-Normal Activity Paroxysmal Sweats: No Perspiration Orientation: 0-Oriented Tacttile Disturbances: 0-None Auditory Disturbances: 0-None Visual Disturbances: 0-None Headache: 0-None Present CIWA-Ar Total Score: 1
== END 2020-01-08 11:00 | disposition other institution (70) | DRG 897 ==
LOC: YASAS 09:42 → Y5N DETOX 11:00
PROVIDERS: ADMIT Allergy & Immunology; ATTEND Allergy & Immunology
PROC: HZ2ZZZZ Detoxification Services for Substance Abuse Treatment (ICD-10-PCS; principal; 2020-01-03)
DX: F10.230 Alcohol dependence with withdrawal, uncomplicated (principal); F19.24 Other psychoactive substance dependence with psychoactive substance-induced mood disorder; F10.24 Alcohol dependence with alcohol-induced mood disorder; F10.282 Alcohol dependence with alcohol-induced sleep disorder; F32.9 Major depressive disorder, single episode, unspecified; J45.909 Unspecified asthma, uncomplicated; G47.00 Insomnia, unspecified; B35.1 Tinea unguium; R01.1 Cardiac murmur, unspecified; Z91.410 Personal history of adult physical and sexual abuse; Z86.19 Personal history of other infectious and parasitic diseases; Z96.641 Presence of right artificial hip joint; Z96.642 Presence of left artificial hip joint; Z99.89 Dependence on other enabling machines and devices; Z95.1 Presence of aortocoronary bypass graft; Z56.0 Unemployment, unspecified; Z59.0 Homelessness; Z98.890 Other specified postprocedural states
CPT/HCPCS: 36415; 80053; 81003; 85027; 85610; 86780; U0003

== ENCOUNTER 2020-01-08 11:04 | Inpatient (IN) | payer OTHER ==
[2020-01-08] MEDS ORDERED: guaiFENesin 200 MG/10 ML 10 ML UNIT-DOSE CUPS PO PRN (12:04)
[2020-01-08] MEDS ORDERED: P-EPHED 60MG/TRIPROLIDI 2.5MG TABLET PO PRN (12:04)
[2020-01-08] MEDS ORDERED: hydrOXYzine PAMOATE 25 MG CAPSULE (FP) PO PRN (12:04)
[2020-01-08] MEDS ORDERED: MAGNESIUM HYDROX 2400MG/30ML ORAL SUSPENSION 30 ML CUP PO PRN (12:04)
[2020-01-08] MEDS ORDERED: MAGNESIUM CITRATE 300 ML BOTTLE PO PRN (12:04)
[2020-01-08] MEDS ORDERED: NICOTINE POLACRILEX 2 MG GUM BUC PRN (12:04)
[2020-01-08] MEDS ORDERED: LOPERAMIDE HCL 2 MG CAPSULE PO PRN (12:04)
[2020-01-08] MEDS ORDERED: IBUPROFEN 400 MG TABLET (FP) PO PRN (12:04)
[2020-01-08] MEDS ORDERED: ACETAMINOPHEN 325 MG TABLET (FP) PO PRN (12:04)
--- NOTE | 2020-01-08 12:04 | HP ---
[facility] Re[facility] Assess/Revision - Admission History [facility] to [facility] - Vital signs Vital Signs: Vital Signs Period Temp Pulse Resp BP Sys/Gant Pulse Ox Last 24 Hr 98.9 F 79 18 143/76 - Findings Detox History & Physical reviewed: Yes Concur with findings: Yes Comments/Additional Findings: trasnferred from detox to rehab admission as per protocol Inpatient Rehab Admission - Rehab Decision to Admit Inpatient rehab admission?: Yes - Initial Determination Are CD services needed?: Yes Free of communicable disease: Yes Not in need of hospitalization: Yes - Rehab Admission Criteria Previous failed treatment: Yes Poor recovery environment: Yes Comorbidities: Yes Lacks judgement: Yes Patient is meeting Inpatient Rehab admission criteria:: Yes
[2020-01-08] MEDS ORDERED: MASKS NR ONE (12:56)
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
[2020-01-08] MEDS: QUEtiapine FUMARATE 100 MG TABLET (FP) PO SCH (22:00)
[2020-01-08] MEDS: MELATONIN 5 MG TABLETS PO SCH (22:00)
[2020-01-08] MEDS ORDERED: QUEtiapine FUMARATE 100 MG TABLET (FP) PO SCH (22:00)
[2020-01-08] MEDS: THIAMINE HCL 100 MG TABLET (FP) PO SCH (22:00)
[2020-01-09] MEDS: NICOTINE 7 MG/24 HOURS TOPICAL PATCH TD SCH (09:56)
[2020-01-09] MEDS: PRENATAL VITAMINS W/ FOLIC ACID TABLET (FP) PO SCH (09:56)
[2020-01-09] MEDS: MELATONIN 5 MG TABLETS PO SCH (21:22)
[2020-01-09] MEDS: THIAMINE HCL 100 MG TABLET (FP) PO SCH (21:22)
[2020-01-09] MEDS: QUEtiapine FUMARATE 100 MG TABLET (FP) PO SCH (21:22)
[2020-01-10] MEDS: NICOTINE 7 MG/24 HOURS TOPICAL PATCH TD SCH (10:38)
[2020-01-10] MEDS: PRENATAL VITAMINS W/ FOLIC ACID TABLET (FP) PO SCH (10:39)
[2020-01-10] MEDS: MELATONIN 5 MG TABLETS PO SCH (21:06)
[2020-01-10] MEDS: QUEtiapine FUMARATE 100 MG TABLET (FP) PO SCH (21:06)
[2020-01-10] MEDS: THIAMINE HCL 100 MG TABLET (FP) PO SCH (21:06)
[2020-01-11] MEDS: NICOTINE 7 MG/24 HOURS TOPICAL PATCH TD SCH (09:29)
[2020-01-11] MEDS: PRENATAL VITAMINS W/ FOLIC ACID TABLET (FP) PO SCH (09:29)
[2020-01-11] MEDS: MAG HYDROX/AL HYDROX/SIMETH 30 ML UNIT-DOSE CUP PO PRN ×2 (09:36→21:20)
[2020-01-11] MEDS: MELATONIN 5 MG TABLETS PO SCH (21:19)
[2020-01-11] MEDS: THIAMINE HCL 100 MG TABLET (FP) PO SCH (21:19)
[2020-01-11] MEDS: QUEtiapine FUMARATE 100 MG TABLET (FP) PO SCH (21:19)
--- NOTE | 2020-01-12 09:05 | PN ---
[facility] Progress Note Note: Patient admitted to [facility]. Vital Signs Period Temp Pulse Resp BP Sys/Gant Pulse Ox Last 24 Hr 97.5 F-97.7 F 76 18-20 122/74 95-98 general: no apparent distress Neuro: A + O X 4 MSK: full weight bearing, steady gait Substance use disorder Hydration Nutrition maintain safety Continue with Rehab Methadone @0600 daily Labs, problem list, notes and documents reviewed.
[2020-01-12] MEDS: PRENATAL VITAMINS W/ FOLIC ACID TABLET (FP) PO SCH (10:12)
[2020-01-12] MEDS: NICOTINE 7 MG/24 HOURS TOPICAL PATCH TD SCH (10:12)
[2020-01-12] MEDS: MAG HYDROX/AL HYDROX/SIMETH 30 ML UNIT-DOSE CUP PO PRN (10:43)
--- NOTE | 2020-01-12 12:04 | PN ---
[facility] Progress Note Note: Patient c/o indigestion, taking maalox with every meal. States tomato based products upset his stomach Physical: General: no apparent distress HEENTM: normocephalic, throat clear, voice normal ABD: + BS, protuberant Assessment: GERD Plan: started Protonix,
[2020-01-12] MEDS: MELATONIN 5 MG TABLETS PO SCH (21:34)
[2020-01-12] MEDS: THIAMINE HCL 100 MG TABLET (FP) PO SCH (21:34)
[2020-01-12] MEDS: QUEtiapine FUMARATE 100 MG TABLET (FP) PO SCH (21:34)
[2020-01-13] MEDS: NICOTINE 7 MG/24 HOURS TOPICAL PATCH TD SCH (09:48)
[2020-01-13] MEDS: PRENATAL VITAMINS W/ FOLIC ACID TABLET (FP) PO SCH (09:48)
[2020-01-13] MEDS: PANTOPRAZOLE 40 MG TABLET PO SCH (09:49)
[2020-01-13] MEDS: MELATONIN 5 MG TABLETS PO SCH (21:19)
[2020-01-13] MEDS: QUEtiapine FUMARATE 100 MG TABLET (FP) PO SCH (21:19)
[2020-01-13] MEDS: THIAMINE HCL 100 MG TABLET (FP) PO SCH (21:19)
[2020-01-14] MEDS: PANTOPRAZOLE 40 MG TABLET PO SCH (10:08)
[2020-01-14] MEDS: NICOTINE 7 MG/24 HOURS TOPICAL PATCH TD SCH (10:08)
[2020-01-14] MEDS: PRENATAL VITAMINS W/ FOLIC ACID TABLET (FP) PO SCH (10:08)
[2020-01-14] MEDS: MELATONIN 5 MG TABLETS PO SCH (21:15)
[2020-01-14] MEDS: QUEtiapine FUMARATE 100 MG TABLET (FP) PO SCH (21:15)
[2020-01-14] MEDS: THIAMINE HCL 100 MG TABLET (FP) PO SCH (21:15)
--- NOTE | 2020-01-15 08:14 | PN ---
[facility] Progress Note Note: Patient is scheduled for discharge tomorrow. Script for 30 days supply of Seroquel 100 mg/hs will be electronically transmitted to [facility], [address] [place] [address] [address]
[2020-01-15] MEDS: PRENATAL VITAMINS W/ FOLIC ACID TABLET (FP) PO SCH (10:23)
[2020-01-15] MEDS: PANTOPRAZOLE 40 MG TABLET PO SCH (10:23)
[2020-01-15] MEDS: NICOTINE 7 MG/24 HOURS TOPICAL PATCH TD SCH (10:24)
[2020-01-15] MEDS: MELATONIN 5 MG TABLETS PO SCH (21:24)
[2020-01-15] MEDS: THIAMINE HCL 100 MG TABLET (FP) PO SCH (21:24)
[2020-01-15] MEDS: QUEtiapine FUMARATE 100 MG TABLET (FP) PO SCH (21:24)
[2020-01-16 07:16] VITALS: BP 147/91; PULSE 81; TEMP 97.7
[2020-01-16] MEDS: PANTOPRAZOLE 40 MG TABLET PO SCH (09:37)
[2020-01-16] MEDS: NICOTINE 7 MG/24 HOURS TOPICAL PATCH TD SCH (09:37)
[2020-01-16] MEDS: PRENATAL VITAMINS W/ FOLIC ACID TABLET (FP) PO SCH (09:37)
--- NOTE | 2020-01-16 11:21 | DS ---
[facility] Rehab Discharge Summary - [facility] Rehab Discharge Summary Admission Date: 01/08/20 Discharge Date: 01/16/20 - History Present History: Alcohol dependence Pertinent Past History: Hx Asthma Hx CABG Hx Heart MurmurParanoid Schizophrenia - Discharge Physical Exam Vital Signs: Vital Signs Temperature 97.7 F 01/16/20 07:16 Pulse Rate 81 01/16/20 07:16 Respiratory Rate 18 01/16/20 07:16 Blood Pressure 147/91 01/16/20 07:16 O2 Sat by Pulse Oximetry (%) 99 01/16/20 07:16 Alert ox 3 nad oob ambulating with steady gait cardiac;s1 s2,rrr lungs:ctab abdomen:soft,+bs,nt,++fatty extremities:no edema,right lower ext. with brown discoloration. Pertinent Admission Physical Exam Findings: Laboratory Tests 01/09/20 07:00 Sickle Cell Screen Negative - Treatment Discharge Condition: Discharge condition good Hospital Course: Pt completed rehab and discharged today. Pt has been referred to follow up with Cd aftercare at [facility] program. Rehabilitated safely Responded well - Medication Discharge Medications: Ambulatory Orders Quetiapine Fumarate [Seroquel -] 100 mg PO HS 01/08/20 Quetiapine Fumarate [Seroquel -] 100 mg PO HS #30 tablet 01/15/20 - Medication-Assisted Treatment (MAT) Medication-Assisted Treatment (MAT): No - Discharge Instructions Diet, activity, other medical instructions: Diet:Regular Activity:oob ad catracho Other medical instructions:follow up with CD aftercare recommendations as scheduled. - Diagnosis (1) Alcohol dependence Status: Chronic Qualifiers: Substance use status: uncomplicated Qualified Code(s): F10.20 - Alcohol dependence, uncomplicated (2) H/O bilateral hip replacements Status: Chronic (3) Walker as ambulation aid Status: Chronic - Follow-up Referral Minutes to complete discharge: 25 - AMA Did Patient Leave Against Medical Advice: No Additional Comments: Pt reports he has a PCP Dr. Anay Man with [facility] at [address] [place] [address]. Pt will follow up with medical management with PCP after discharge.
== END 2020-01-16 09:47 | disposition home or self-care (01) | DRG 895 ==
LOC: YASAS 11:04 → Y3W 11:06
PROVIDERS: ADMIT Allergy & Immunology; ATTEND Allergy & Immunology
PROC: HZ42ZZZ Group Counseling for Substance Abuse Treatment, Cognitive-Behavioral (ICD-10-PCS; principal; 2020-01-08)
DX: F10.20 Alcohol dependence, uncomplicated (principal); F20.0 Paranoid schizophrenia; F17.211 Nicotine dependence, cigarettes, in remission; F10.24 Alcohol dependence with alcohol-induced mood disorder; F10.282 Alcohol dependence with alcohol-induced sleep disorder; F32.9 Major depressive disorder, single episode, unspecified; K21.9 Gastro-esophageal reflux disease without esophagitis; R01.1 Cardiac murmur, unspecified; Z96.643 Presence of artificial hip joint, bilateral; Z95.1 Presence of aortocoronary bypass graft; Z86.19 Personal history of other infectious and parasitic diseases; Z99.89 Dependence on other enabling machines and devices; Z98.890 Other specified postprocedural states; Z56.0 Unemployment, unspecified; Z59.0 Homelessness
CPT/HCPCS: 36415; 85660

== ENCOUNTER 2020-02-25 08:53 | Inpatient (IN) | payer OTHER ==
--- NOTE | 2020-02-25 11:32 | BHS.RME ---
Substance Use & Tx History - Substance Use History Alcohol Substance amount: 2 pints Frequency of use: Daily Substance route: Oral Date of Last Use: 02/25/20 - Last Treatment Date of last treatment: 01/03/2020 Treatment type: Substance Use Disorder ([facility]) Where was last treatment: Detox Physical/Psych/Mental Status - Behavior General Behavior: Increased activity (restlessness, agitation) Eye Contact: Normal Other Behaviors: Mannerisms - Cooperativeness Cooperativeness: Cooperative - Thinking Thought Processes: Tight, Logical, Goal Directed Thought content: Future oriented - Physical Health Problems Is patient presently having any pain?: No Does patient presently have any injuries (include location): No Does patient currently have a fever: No
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
[2020-02-25] MEDS ORDERED: BISMUTH SUBSALICYLATE 524 MG/30 ML UD PO PRN (11:55)
[2020-02-25] MEDS ORDERED: chlordiazePOXIDE HCL 10 MG CAPSULE PO PRN (11:55)
[2020-02-25] MEDS ORDERED: MAGNESIUM CITRATE 300 ML BOTTLE PO PRN (11:55)
[2020-02-25] MEDS ORDERED: MAG HYDROX/AL HYDROX/SIMETH 30 ML UNIT-DOSE CUP PO PRN (11:55)
[2020-02-25] MEDS ORDERED: METHOCARBAMOL 500 MG TABLET PO PRN (11:55)
[2020-02-25] MEDS ORDERED: MENTHOL/PHENOL 1 EACH UD MM PRN (11:55)
[2020-02-25] MEDS ORDERED: MAGNESIUM HYDROX 2400MG/30ML ORAL SUSPENSION 30 ML CUP PO PRN (11:55)
[2020-02-25] MEDS ORDERED: ONDANSETRON *ODT* 4 MG TABLET SL ONE (11:55)
[2020-02-25] MEDS ORDERED: ACETAMINOPHEN 325 MG TABLET (FP) PO PRN ×2 (11:55)
[2020-02-25] MEDS: chlordiazePOXIDE HCL 25 MG CAPSULE PO SCH ×2 (13:00→23:02)
[2020-02-25] MEDS: hydrOXYzine PAMOATE 25 MG CAPSULE (FP) PO SCH ×3 (13:01→23:02)
[2020-02-25] MEDS: MELATONIN 5 MG TABLETS PO SCH (23:02)
[2020-02-25] MEDS: THIAMINE HCL 100 MG TABLET (FP) PO SCH (23:03)
[2020-02-26] MEDS: chlordiazePOXIDE HCL 25 MG CAPSULE PO SCH ×3 (07:27→22:41)
[2020-02-26] MEDS: hydrOXYzine PAMOATE 25 MG CAPSULE (FP) PO SCH ×6 (07:27→22:41)
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
[2020-02-26] MEDS: PRENATAL VITAMINS W/ FOLIC ACID TABLET (FP) PO SCH (11:06)
[2020-02-26 12:11] LABS: HEMATOCRIT 45.3 % (35.4-49); MCH 30.8 pg (25.7-33.7); MEAN CELL VOLUME 93.2 fl (80-96); MEAN PLT VOLUME 7.1 fl (7.5-11.1); PLATELET COUNT 209 K/MM3 (134-434); RBC 4.87 M/mm3 (4.00-5.60); RDW 15.1 % (11.9-15.9); WHITE BLOOD COUNT 4.7 K/mm3 (4.0-10.0)
[2020-02-26 12:28] LABS: ALBUMIN 3.5 g/dl (3.4-5.0); BILIRUBIN,TOTAL 0.5 mg/dL (0.2-1); BLOOD UREA NITROGEN 12.4 mg/dL (7-18); CREATININE 0.9 mg/dL (0.55-1.3); TOT PROT 7.8 g/dl (6.4-8.2)
--- NOTE | 2020-02-26 15:31 | PN ---
S CIWA - CIWA Score Nausea/Vomitin-Mild Nausea/No Vomiting Muscle Tremors: 3 Anxiety: 2 Agitation: 0-Normal Activity Paroxysmal Sweats: 1-Minimal Palms Moist Orientation: 0-Oriented Tacttile Disturbances: 0-None Auditory Disturbances: 0-None Visual Disturbances: 1-Very Mild Sensitivity Headache: 0-None Present CIWA-Ar Total Score: 8 [facility] Progress Note (SOAP) Subjective: 59 years old male was admitted on 02/25/20 for alcohol withdrawal sx management treating with librium detox regiment ate breakfast and lunch in room resting in bed feels tired encourage right lower leg elevation while in bed limited conversation with staff Objective: 02/26/20 15:29 Vital Signs - 24 hr 02/25/20 02/25/20 02/26/20 17:02 20:45 05:26 Temperature 97.5 F L 97.5 F L 97.1 F L Pulse Rate 90 86 70 Respiratory 16 16 16 Rate Blood Pressure 161/89 150/85 124/71 O2 Sat by Pulse 98 96 Oximetry (%) 02/26/20 02/26/20 08:59 13:00 Temperature 97.1 F L 97.1 F L Pulse Rate 94 H 82 Respiratory 20 18 Rate Blood Pressure 160/74 144/76 O2 Sat by Pulse 100 Oximetry (%) Laboratory Tests 02/25/20 02/26/20 02/26/20 11:45 07:15 07:15 WBC 4.7 RBC 4.87 Hgb 15.0 Hct 45.3 MCV 93.2 MCH 30.8 MCHC 33.0 RDW 15.1 Plt Count 209 MPV 7.1 L Sodium Potassium Chloride Carbon Dioxide Anion Gap BUN Creatinine Est GFR (CKD-EPI)AfAm Est GFR (CKD-EPI)NonAf Random Glucose Calcium Total Bilirubin AST ALT Alkaline Phosphatase Total Protein Albumin Syphilis Serology Reactive A* RPR Titer COVID-19 ([facility]) Not detected 02/26/20 02/26/20 07:15 07:15 WBC RBC Hgb Hct MCV MCH MCHC RDW Plt Count MPV Sodium 139 Potassium 4.0 Chloride 101 Carbon Dioxide 30 Anion Gap 8 BUN 12.4 Creatinine 0.9 Est GFR (CKD-EPI)AfAm 107.97 Est GFR (CKD-EPI)NonAf 93.16 Random Glucose 97 Calcium 9.0 Total Bilirubin 0.5 AST 30 ALT 31 Alkaline Phosphatase 121 H Total Protein 7.8 Albumin 3.5 Syphilis Serology RPR Titer Reactive 1:1 H D COVID-19 ([facility]ESA) mr natarajan rather sleep and not to talk about syphilis 02/26/20 15:34 Assessment: 02/26/20 15:35 alcohol withdrawal Plan: librium regiment
[2020-02-26] MEDS: amLODIPine BESYLATE 10 MG TABLET (FP) PO SCH (15:32)
[2020-02-26] MEDS: THIAMINE HCL 100 MG TABLET (FP) PO SCH (22:41)
[2020-02-26] MEDS: MELATONIN 5 MG TABLETS PO SCH (22:41)
[2020-02-27] MEDS: chlordiazePOXIDE 5 MG CAPSULE PO SCH ×3 (07:07→22:47)
[2020-02-27] MEDS: hydrOXYzine PAMOATE 25 MG CAPSULE (FP) PO SCH ×5 (07:07→22:47)
[2020-02-27] MEDS: PRENATAL VITAMINS W/ FOLIC ACID TABLET (FP) PO SCH (09:36)
[2020-02-27] MEDS: amLODIPine BESYLATE 10 MG TABLET (FP) PO SCH (09:36)
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
[2020-02-27] MEDS: MELATONIN 5 MG TABLETS PO SCH (22:47)
[2020-02-27] MEDS: THIAMINE HCL 100 MG TABLET (FP) PO SCH (22:47)
[2020-02-28] MEDS ORDERED: chlordiazePOXIDE HCL 10 MG CAPSULE PO PRN
[2020-02-28] MEDS: hydrOXYzine PAMOATE 25 MG CAPSULE (FP) PO SCH ×3 (07:26→13:30)
[2020-02-28] MEDS: chlordiazePOXIDE HCL 10 MG CAPSULE PO SCH ×2 (07:27→13:30)
[2020-02-28] MEDS: amLODIPine BESYLATE 10 MG TABLET (FP) PO SCH (10:42)
[2020-02-28] MEDS: PRENATAL VITAMINS W/ FOLIC ACID TABLET (FP) PO SCH (10:43)
--- NOTE | 2020-02-28 15:32 | PN ---
S CIWA - CIWA Score Nausea/Vomitin-No Nausea/No Vomiting Muscle Tremors: 1-None Visible, but [place] Anxiety: 1-Mildly Anxious Agitation: 0-Normal Activity Paroxysmal Sweats: No Perspiration Orientation: 0-Oriented Tacttile Disturbances: 0-None Auditory Disturbances: 0-None Visual Disturbances: 1-Very Mild Sensitivity Headache: 0-None Present CIWA-Ar Total Score: 3 B[facility] Progress Note (SOAP) Subjective: 59 years old male was admitted on 02/25/20 for alcohol withdrawal sx management treating with librium detox regiment mr natarajan states that he feels better today and the dosage of librium may over the limit of tolerance adjusting librium dosage and discontinue vistaril Objective: 02/28/20 15:31 Vital Signs - 24 hr 02/27/20 02/27/20 02/28/20 16:47 20:54 06:24 Temperature 98.6 F 98.2 F 97.7 F Pulse Rate 86 84 65 Respiratory 18 18 18 Rate Blood Pressure 118/73 123/76 121/77 O2 Sat by Pulse 95 95 95 Oximetry (%) 02/28/20 02/28/20 09:07 12:40 Temperature 97.8 F 98.2 F Pulse Rate 63 70 Respiratory 18 18 Rate Blood Pressure 109/63 102/62 O2 Sat by Pulse 95 95 Oximetry (%) Laboratory Tests 02/25/20 02/26/20 02/26/20 11:45 07:15 07:15 WBC 4.7 RBC 4.87 Hgb 15.0 Hct 45.3 MCV 93.2 MCH 30.8 MCHC 33.0 RDW 15.1 Plt Count 209 MPV 7.1 L Sodium Potassium Chloride Carbon Dioxide Anion Gap BUN Creatinine Est GFR (CKD-EPI)AfAm Est GFR (CKD-EPI)NonAf Random Glucose Calcium Total Bilirubin AST ALT Alkaline Phosphatase Total Protein Albumin Syphilis Serology Reactive A* RPR Titer COVID-19 ([facility]) Not detected 02/26/20 02/26/20 07:15 07:15 WBC RBC Hgb Hct MCV MCH MCHC RDW Plt Count MPV Sodium 139 Potassium 4.0 Chloride 101 Carbon Dioxide 30 Anion Gap 8 BUN 12.4 Creatinine 0.9 Est GFR (CKD-EPI)AfAm 107.97 Est GFR (CKD-EPI)NonAf 93.16 Random Glucose 97 Calcium 9.0 Total Bilirubin 0.5 AST 30 ALT 31 Alkaline Phosphatase 121 H Total Protein 7.8 Albumin 3.5 Syphilis Serology RPR Titer Reactive 1:1 H D COVID-19 ([facility]) 02/28/20 15:31 syphilis treated Assessment: 02/28/20 15:32 alcohol withdrawal Plan: librium regiment
[2020-02-28] MEDS ORDERED: chlordiazePOXIDE 5 MG CAPSULE PO SCH (22:00)
[2020-02-28] MEDS: MELATONIN 5 MG TABLETS PO SCH (22:08)
[2020-02-28] MEDS: THIAMINE HCL 100 MG TABLET (FP) PO SCH (22:08)
[2020-02-29] MEDS ORDERED: chlordiazePOXIDE 5 MG CAPSULE PO ONE (05:00)
[2020-02-29] MEDS ORDERED: chlordiazePOXIDE HCL 10 MG CAPSULE PO ONE (05:00)
[2020-02-29 09:20] VITALS: BP 96/57; PULSE 73; TEMP 97.8
[2020-02-29] MEDS: amLODIPine BESYLATE 10 MG TABLET (FP) PO SCH (10:06)
[2020-02-29] MEDS: PRENATAL VITAMINS W/ FOLIC ACID TABLET (FP) PO SCH (10:06)
--- NOTE | 2020-02-29 14:13 | DS ---
[facility] Detox Discharge Summary Admission Date: 02/25/20 Discharge Date: 02/29/20 - History Present History: Alcohol Dependence Additional Comments: 59 years old male was admitted on 02/25/20 for alcohol withdrawal sx management treated with librium detox regiment seen by psychiatrist no medical intervention mr natarajan has completed the librium regiment and is tolerated well General Appearance: Yes: No Apparent Distress HEENTM: Yes: Hearing grossly Normal, Normocephalic, Normal Voice Respiratory: Yes: Chest Non-Tender, Lungs Clear, Normal Breath Sounds, No Respiratory Distress, No Accessory Muscle Use Neck: Yes: No masses,lesions,Nodules, Supple Breast: Yes: Breast Exam Deferred Cardiology: Yes: Regular Rhythm, S1, S2 Abdominal: Yes: Normal Bowel Sounds, Soft, Increased Bowel Sounds, Protuberent, Distended Genitourinary: Yes: Within Normal Limits Back: Yes: Normal Inspection Musculoskeletal: Yes: Joint Stiffness, Muscle weakness Extremities: Yes: Pedal Edema, Swelling (to LLE, cool to touch), Erythema (mild in the LLE), Other (bilateral hip replacement) Neurological: Yes: Fully Oriented, Alert, Normal Mood/Affect, Normal Response Integumentary: Yes: warm and dry, Other (stasis changes to RLE) Lymphatic: Yes: Within Normal Limits Pertinent Past History: time for discharge 33 minutes - Physical Exam Results Vital Signs: Vital Signs Temperature 97.8 F 02/29/20 08:56 Pulse Rate 73 02/29/20 08:56 Respiratory Rate 18 02/29/20 08:56 Blood Pressure 96/57 L 02/29/20 08:56 O2 Sat by Pulse Oximetry (%) 98 02/29/20 07:00 Pertinent Admission Physical Exam Findings: alcohol withdrawal Laboratory Tests 02/25/20 02/26/20 02/26/20 11:45 07:15 07:15 WBC 4.7 RBC 4.87 Hgb 15.0 Hct 45.3 MCV 93.2 MCH 30.8 MCHC 33.0 RDW 15.1 Plt Count 209 MPV 7.1 L Sodium Potassium Chloride Carbon Dioxide Anion Gap BUN Creatinine Est GFR (CKD-EPI)AfAm Est GFR (CKD-EPI)NonAf Random Glucose Calcium Total Bilirubin AST ALT Alkaline Phosphatase Total Protein Albumin Syphilis Serology Reactive A* RPR Titer COVID-19 ([facility]) Not detected 02/26/20 02/26/20 07:15 07:15 WBC RBC Hgb Hct MCV MCH MCHC RDW Plt Count MPV Sodium 139 Potassium 4.0 Chloride 101 Carbon Dioxide 30 Anion Gap 8 BUN 12.4 Creatinine 0.9 Est GFR (CKD-EPI)AfAm 107.97 Est GFR (CKD-EPI)NonAf 93.16 Random Glucose 97 Calcium 9.0 Total Bilirubin 0.5 AST 30 ALT 31 Alkaline Phosphatase 121 H Total Protein 7.8 Albumin 3.5 Syphilis Serology RPR Titer Reactive 1:1 H D COVID-19 ([facility]) lab noted - Treatment Hospital Course: Detox Protocol Followed, Detoxed Safely, Responded well, Discharged Condition Good, Rehab Referral Accepted Patient has Accepted [facility] - Medication Discharge Medications: Ambulatory Orders Amlodipine Besylate [Norvasc -] 10 mg PO DAILY #30 tablet 02/28/20 - Diagnosis (1) Alcohol dependence with uncomplicated withdrawal Status: Acute (2) Syphilis contact, treated Status: Chronic (3) Asthma Status: Chronic Qualifiers: Asthma severity: mild Asthma persistence: intermittent Asthma complication type: with status asthmaticus Qualified Code(s): J45.22 - Mild intermittent asthma with status asthmaticus (4) Walker as ambulation aid Status: Chronic (5) Substance induced mood disorder Status: Suspected - AMA Did Patient Leave Against Medical Advice: No CIWA Score - CIWA Score Nausea/Vomitin-No Nausea/No Vomiting Muscle Tremors: 1-None Visible, but [place] Anxiety: 1-Mildly Anxious Agitation: 0-Normal Activity Paroxysmal Sweats: No Perspiration Orientation: 0-Oriented Tacttile Disturbances: 0-None Auditory Disturbances: 0-None Visual Disturbances: 0-None Headache: 0-None Present CIWA-Ar Total Score: 2
== END 2020-02-29 11:22 | disposition other institution (70) | DRG 897 ==
LOC: YASAS 08:53 → Y3N 11:40
PROVIDERS: ADMIT Allergy & Immunology; ATTEND Allergy & Immunology
PROC: HZ2ZZZZ Detoxification Services for Substance Abuse Treatment (ICD-10-PCS; principal; 2020-02-25)
DX: F10.230 Alcohol dependence with withdrawal, uncomplicated (principal); F17.211 Nicotine dependence, cigarettes, in remission; F19.24 Other psychoactive substance dependence with psychoactive substance-induced mood disorder; F32.9 Major depressive disorder, single episode, unspecified; L53.8 Other specified erythematous conditions; J45.909 Unspecified asthma, uncomplicated; R22.42 Localized swelling, mass and lump, left lower limb; R01.1 Cardiac murmur, unspecified; Z20.2 Contact with and (suspected) exposure to infections with a predominantly sexual mode of transmission; Z62.810 Personal history of physical and sexual abuse in childhood; Z96.643 Presence of artificial hip joint, bilateral; Z86.19 Personal history of other infectious and parasitic diseases; Z99.89 Dependence on other enabling machines and devices; Z98.890 Other specified postprocedural states; Z88.8 Allergy status to other drugs, medicaments and biological substances; Z56.0 Unemployment, unspecified; Z59.0 Homelessness
CPT/HCPCS: 36415; 80053; 85027; 86593; 86780; Q0162; U0003

== ENCOUNTER 2020-02-29 11:24 | Inpatient (IN) | payer OTHER ==
[2020-02-29] MEDS ORDERED: guaiFENesin 200 MG/10 ML 10 ML UNIT-DOSE CUPS PO PRN (12:43)
[2020-02-29] MEDS ORDERED: MAGNESIUM HYDROX 2400MG/30ML ORAL SUSPENSION 30 ML CUP PO PRN (12:43)
[2020-02-29] MEDS ORDERED: ACETAMINOPHEN 325 MG TABLET (FP) PO PRN (12:43)
[2020-02-29] MEDS ORDERED: LOPERAMIDE HCL 2 MG CAPSULE PO PRN (12:43)
[2020-02-29] MEDS ORDERED: P-EPHED 60MG/TRIPROLIDI 2.5MG TABLET PO PRN (12:43)
[2020-02-29] MEDS ORDERED: MAGNESIUM CITRATE 300 ML BOTTLE PO PRN (12:43)
[2020-02-29] MEDS ORDERED: MAG HYDROX/AL HYDROX/SIMETH 30 ML UNIT-DOSE CUP PO PRN (12:43)
[2020-02-29] MEDS ORDERED: MENTHOL/PHENOL 1 EACH UD MM PRN (12:43)
--- NOTE | 2020-02-29 12:46 | HP ---
[facility] Rehab Assess/Revision - Admission History Ad[facility] - Vital signs Vital Signs: Vital Signs Period Temp Pulse Resp BP Sys/Gant Pulse Ox Last 24 Hr 97.5 F 86 18 97 - Findings Detox History & Physical reviewed: Yes Concur with findings: Yes Comments/Additional Findings: Pt is a 59 y/o male admitted to rehab [facility] late this morning. PMHx:Steve. Hip replacement; Heart Murmur and had sx in 2002 per H/P; RLE Stasis; LLE Erythema;Recommended for Vascular follow up by [facility] before coming to detox at [address]. Alert o x 3. nad. oob ambulates with walker. extremities:slight brown discoloration of right lower leg;skin intact Inpatient Rehab Admission - Rehab Decision to Admit Inpatient rehab admission?: Yes - Initial Determination Are CD services needed?: Yes Free of communicable disease: Yes Not in need of hospitalization: Yes - Rehab Admission Criteria Previous failed treatment: Yes Poor recovery environment: Yes Comorbidities: Yes Lacks judgement: Yes Patient is meeting Inpatient Rehab admission criteria:: Yes
[2020-02-29] MEDS: THIAMINE HCL 100 MG TABLET (FP) PO SCH (21:36)
[2020-02-29] MEDS: hydrOXYzine PAMOATE 25 MG CAPSULE (FP) PO PRN (21:36)
[2020-02-29] MEDS: MELATONIN 5 MG TABLETS PO SCH (21:37)
[2020-03-01] MEDS: amLODIPine BESYLATE 10 MG TABLET (FP) PO SCH (09:27)
[2020-03-01] MEDS: PRENATAL VITAMINS W/ FOLIC ACID TABLET (FP) PO SCH (09:27)
[2020-03-01] MEDS: THIAMINE HCL 100 MG TABLET (FP) PO SCH (21:17)
[2020-03-01] MEDS: MELATONIN 5 MG TABLETS PO SCH (21:17)
[2020-03-02] MEDS: PRENATAL VITAMINS W/ FOLIC ACID TABLET (FP) PO SCH (09:18)
[2020-03-02] MEDS: amLODIPine BESYLATE 10 MG TABLET (FP) PO SCH (09:18)
[2020-03-02] MEDS: hydrOXYzine PAMOATE 25 MG CAPSULE (FP) PO PRN (21:47)
[2020-03-02] MEDS: THIAMINE HCL 100 MG TABLET (FP) PO SCH (21:47)
[2020-03-02] MEDS: MELATONIN 5 MG TABLETS PO SCH (21:47)
[2020-03-03] MEDS: amLODIPine BESYLATE 10 MG TABLET (FP) PO SCH (10:21)
[2020-03-03] MEDS: PRENATAL VITAMINS W/ FOLIC ACID TABLET (FP) PO SCH (10:21)
[2020-03-03] MEDS: THIAMINE HCL 100 MG TABLET (FP) PO SCH (21:51)
[2020-03-03] MEDS: MELATONIN 5 MG TABLETS PO SCH (21:52)
[2020-03-04] MEDS: amLODIPine BESYLATE 10 MG TABLET (FP) PO SCH (10:18)
[2020-03-04] MEDS: PRENATAL VITAMINS W/ FOLIC ACID TABLET (FP) PO SCH (10:18)
[2020-03-04] MEDS: MELATONIN 5 MG TABLETS PO SCH (22:00)
[2020-03-04] MEDS: THIAMINE HCL 100 MG TABLET (FP) PO SCH (22:00)
[2020-03-05] MEDS: PRENATAL VITAMINS W/ FOLIC ACID TABLET (FP) PO SCH (10:45)
[2020-03-05] MEDS: amLODIPine BESYLATE 10 MG TABLET (FP) PO SCH (10:45)
[2020-03-05] MEDS: hydrOXYzine PAMOATE 25 MG CAPSULE (FP) PO PRN (21:52)
[2020-03-05] MEDS: MELATONIN 5 MG TABLETS PO SCH (21:52)
[2020-03-05] MEDS: THIAMINE HCL 100 MG TABLET (FP) PO SCH (21:52)
[2020-03-06] MEDS: PRENATAL VITAMINS W/ FOLIC ACID TABLET (FP) PO SCH (11:06)
[2020-03-06] MEDS: amLODIPine BESYLATE 10 MG TABLET (FP) PO SCH (11:06)
[2020-03-06] MEDS: hydrOXYzine PAMOATE 25 MG CAPSULE (FP) PO PRN (21:39)
[2020-03-06] MEDS: MELATONIN 5 MG TABLETS PO SCH (21:39)
[2020-03-06] MEDS: THIAMINE HCL 100 MG TABLET (FP) PO SCH (21:39)
[2020-03-07] MEDS: PRENATAL VITAMINS W/ FOLIC ACID TABLET (FP) PO SCH (10:20)
[2020-03-07] MEDS: amLODIPine BESYLATE 10 MG TABLET (FP) PO SCH (10:21)
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
[2020-03-07] MEDS: THIAMINE HCL 100 MG TABLET (FP) PO SCH (21:27)
[2020-03-07] MEDS: MELATONIN 5 MG TABLETS PO SCH (21:28)
[2020-03-07] MEDS: hydrOXYzine PAMOATE 25 MG CAPSULE (FP) PO PRN (21:28)
[2020-03-07] MEDS ORDERED: QUEtiapine FUMARATE 100 MG TABLET (FP) PO SCH (22:00)
[2020-03-08] MEDS: PRENATAL VITAMINS W/ FOLIC ACID TABLET (FP) PO SCH (09:04)
[2020-03-08] MEDS: amLODIPine BESYLATE 10 MG TABLET (FP) PO SCH (09:04)
--- NOTE | 2020-03-08 14:46 | PN ---
[facility] Progress Note Note: Psychiatric nurse practitioner note: Patient requesting a lower of dose of seroquel due to feeling oversedated this morning. 1) Will d/c seroquel 100mg. 2) Will order Seroquel 50mg HS. Verbal consent given.
[2020-03-08] MEDS: MELATONIN 5 MG TABLETS PO SCH (21:23)
[2020-03-08] MEDS: THIAMINE HCL 100 MG TABLET (FP) PO SCH (21:23)
[2020-03-08] MEDS: QUEtiapine FUMARATE 50 MG TABLET PO SCH (21:23)
[2020-03-09] MEDS: amLODIPine BESYLATE 10 MG TABLET (FP) PO SCH (09:19)
[2020-03-09] MEDS: PRENATAL VITAMINS W/ FOLIC ACID TABLET (FP) PO SCH (09:19)
[2020-03-09] MEDS: THIAMINE HCL 100 MG TABLET (FP) PO SCH (21:43)
[2020-03-09] MEDS: MELATONIN 5 MG TABLETS PO SCH (21:44)
[2020-03-09] MEDS: QUEtiapine FUMARATE 50 MG TABLET PO SCH (21:44)
[2020-03-10] MEDS: PRENATAL VITAMINS W/ FOLIC ACID TABLET (FP) PO SCH (10:15)
[2020-03-10] MEDS: amLODIPine BESYLATE 10 MG TABLET (FP) PO SCH (10:15)
[2020-03-10] MEDS: MELATONIN 5 MG TABLETS PO SCH (22:00)
[2020-03-10] MEDS: QUEtiapine FUMARATE 50 MG TABLET PO SCH (22:00)
[2020-03-10] MEDS: THIAMINE HCL 100 MG TABLET (FP) PO SCH (22:01)
[2020-03-11] MEDS: PRENATAL VITAMINS W/ FOLIC ACID TABLET (FP) PO SCH (09:48)
[2020-03-11] MEDS: amLODIPine BESYLATE 10 MG TABLET (FP) PO SCH (09:48)
[2020-03-11] MEDS: hydrOXYzine PAMOATE 25 MG CAPSULE (FP) PO PRN (21:49)
[2020-03-11] MEDS: THIAMINE HCL 100 MG TABLET (FP) PO SCH (21:49)
[2020-03-11] MEDS: QUEtiapine FUMARATE 50 MG TABLET PO SCH (21:49)
[2020-03-11] MEDS: MELATONIN 5 MG TABLETS PO SCH (21:58)
[2020-03-12] MEDS: PRENATAL VITAMINS W/ FOLIC ACID TABLET (FP) PO SCH (10:10)
[2020-03-12] MEDS: amLODIPine BESYLATE 10 MG TABLET (FP) PO SCH (10:10)
--- NOTE | 2020-03-12 11:25 | PN ---
[facility] Progress Note Note: Patient is scheduled for discharge tomorrow. Script for 30 days supply of Seroquel 50 mg/hs will be electronically transmitted to [facility], [address] [place] [id number]
[2020-03-12] MEDS: QUEtiapine FUMARATE 50 MG TABLET PO SCH (21:22)
[2020-03-12] MEDS: MELATONIN 5 MG TABLETS PO SCH (21:22)
[2020-03-12] MEDS: THIAMINE HCL 100 MG TABLET (FP) PO SCH (21:22)
[2020-03-12] MEDS: hydrOXYzine PAMOATE 25 MG CAPSULE (FP) PO PRN (21:23)
[2020-03-13] MEDS: amLODIPine BESYLATE 10 MG TABLET (FP) PO SCH (09:05)
[2020-03-13] MEDS: PRENATAL VITAMINS W/ FOLIC ACID TABLET (FP) PO SCH (09:05)
[2020-03-13 11:12] VITALS: BP 118/68; PULSE 91; TEMP 97.3
--- NOTE | 2020-03-13 12:23 | DS ---
[facility] Rehab Discharge Summary - [facility] Rehab Discharge Summary Admission Date: 02/29/20 Discharge Date: 03/13/20 - History Present History: Alcohol dependence Pertinent Past History: Asthma HTN Hx Cardiac Murmur Hx CABG Walker as Ambulatory Aid Hcx Steve Hip Replacement Schizophrenia Depression - Discharge Physical Exam Vital Signs: Vital Signs Temperature 97.3 F L 03/13/20 08:46 Pulse Rate 91 H 03/13/20 08:46 Respiratory Rate 18 03/13/20 08:46 Blood Pressure 118/68 03/13/20 08:46 O2 Sat by Pulse Oximetry (%) 96 03/13/20 08:46 General:Alert o x 3, Cardiac:s1 s2,rrr Lungs:ctab, Puls Ox 96% Abdomen:Protruded, +bs,nt MSK:Active FROM, all limbs; LLE slight erythema-chronic; RLE stasis. Skin:no skin break-intact. Pertinent Admission Physical Exam Findings: s/p detox - Treatment Discharge Condition: Discharge condition good, Rehabilitated safely, Responded well, Outpatient referral accepted Hospital Course: Pt is a 59 y/o male with admitted to rehab after detox treatment on . Pt completed rehab and discharged today. Pt accepted CD aftercare to [facility] for aftercare treatment. - Medication Discharge Medications: Ambulatory Orders Amlodipine Besylate [Norvasc -] 10 mg PO DAILY #30 tablet 03/12/20 Quetiapine Fumarate [Seroquel -] 50 mg PO HS #30 tablet 03/12/20 - Medication-Assisted Treatment (MAT) Medication-Assisted Treatment (MAT): No - Discharge Instructions Diet, activity, other medical instructions: Diet:APRYL Activity: oob ad catracho Other medical instructions:Follow up wit CD aftercare as scheduled. follow up with PCP Dr. Mechelle Man at [facility] [address] in [place], [place] for medical management.(pt's verbal report of PCP location. - Diagnosis (1) Alcohol dependence Status: Chronic Qualifiers: Substance use status: uncomplicated Qualified Code(s): F10.20 - Alcohol dependence, uncomplicated (2) Asthma Status: Chronic Qualifiers: Asthma severity: unspecified severity Asthma persistence: unspecified Asthma complication type: unspecified Qualified Code(s): J45.909 - Unspecified asthma, uncomplicated (3) Walker as ambulation aid Status: Chronic (4) H/O bilateral hip replacements Status: Resolved (5) Hypertension Status: Chronic Qualifiers: Hypertension type: essential hypertension Qualified Code(s): I10 - Andre agudelo (primary) hypertension - Follow-up Referral Minutes to complete discharge: 30 - AMA Did Patient Leave Against Medical Advice: No
== END 2020-03-13 09:25 | disposition home or self-care (01) | DRG 897 ==
LOC: YASAS 11:24 → Y5N 11:58
PROVIDERS: ADMIT Allergy & Immunology; ATTEND Allergy & Immunology
PROC: HZ2ZZZZ Detoxification Services for Substance Abuse Treatment (ICD-10-PCS; principal; 2020-02-29)
DX: F10.20 Alcohol dependence, uncomplicated (principal); F10.282 Alcohol dependence with alcohol-induced sleep disorder; F20.9 Schizophrenia, unspecified; F32.9 Major depressive disorder, single episode, unspecified; I25.10 Atherosclerotic heart disease of native coronary artery without angina pectoris; I10 Essential (primary) hypertension; Z95.1 Presence of aortocoronary bypass graft; J45.909 Unspecified asthma, uncomplicated; R00.1 Bradycardia, unspecified; Z62.810 Personal history of physical and sexual abuse in childhood; Z96.643 Presence of artificial hip joint, bilateral; Z99.89 Dependence on other enabling machines and devices; Z88.6 Allergy status to analgesic agent; Z56.0 Unemployment, unspecified; Z59.0 Homelessness

== ENCOUNTER 2020-05-18 11:58 | Inpatient (IN) | payer OTHER ==
[2020-05-18 12:57] VITALS: BMI 27.4
[2020-05-18] MEDS ORDERED: MAG HYDROX/AL HYDROX/SIMETH 30 ML UNIT-DOSE CUP PO PRN (13:36)
[2020-05-18] MEDS ORDERED: MENTHOL/PHENOL 1 EACH UD MM PRN (13:36)
[2020-05-18] MEDS ORDERED: METHOCARBAMOL 500 MG TABLET PO PRN (13:36)
[2020-05-18] MEDS ORDERED: MAGNESIUM CITRATE 300 ML BOTTLE PO PRN (13:36)
[2020-05-18] MEDS ORDERED: chlordiazePOXIDE HCL 25 MG CAPSULE PO PRN (13:36)
[2020-05-18] MEDS ORDERED: ACETAMINOPHEN 325 MG TABLET (FP) PO PRN ×2 (13:36)
[2020-05-18] MEDS ORDERED: ONDANSETRON *ODT* 4 MG TABLET SL PRN (13:36)
[2020-05-18] MEDS ORDERED: MAGNESIUM HYDROX 2400MG/30ML ORAL SUSPENSION 30 ML CUP PO PRN (13:36)
[2020-05-18] MEDS ORDERED: FUROSEMIDE 40 MG TABLET (FP) PO ONE (13:49)
[2020-05-18] MEDS: hydrOXYzine PAMOATE 25 MG CAPSULE (FP) PO SCH ×3 (17:53→22:13)
[2020-05-18] MEDS: chlordiazePOXIDE HCL 25 MG CAPSULE PO SCH ×2 (17:53→22:13)
[2020-05-18] MEDS: QUEtiapine FUMARATE 100 MG TABLET (FP) PO SCH (22:13)
[2020-05-18] MEDS: MELATONIN 5 MG TABLETS PO SCH (22:13)
[2020-05-18] MEDS: THIAMINE HCL 100 MG TABLET (FP) PO SCH (22:13)
[2020-05-19] MEDS: hydrOXYzine PAMOATE 25 MG CAPSULE (FP) PO SCH ×5 (05:35→22:05)
[2020-05-19] MEDS: chlordiazePOXIDE HCL 25 MG CAPSULE PO SCH ×4 (05:35→22:04)
[2020-05-19] MEDS: PRENATAL VITAMINS W/ FOLIC ACID TABLET (FP) PO SCH (10:24)
[2020-05-19] MEDS: amLODIPine BESYLATE 10 MG TABLET (FP) PO SCH (10:24)
[2020-05-19 11:55] LABS: POTASSIUM 4.2 mmol/L (3.5-5.1)
[2020-05-19 12:01] LABS: CALCIUM 9.2 mg/dL (8.5-10.1)
[2020-05-19 12:02] LABS: ALBUMIN 3.6 g/dl (3.4-5.0)
[2020-05-19 12:05] LABS: CREATININE 0.8 mg/dL (0.55-1.3)
[2020-05-19 12:06] LABS: BILIRUBIN,TOTAL 0.8 mg/dL (0.2-1)
[2020-05-19 12:10] LABS: TOT PROT 7.9 g/dl (6.4-8.2)
[2020-05-19 12:28] LABS: HEMATOCRIT 46.2 % (35.4-49); HEMOGLOBIN 15.1 GM/dL (11.7-16.9); MCH 30.2 pg (25.7-33.7); MCHC 32.7 g/dl (32.0-35.9); MEAN CELL VOLUME 92.3 fl (80-96); WHITE BLOOD COUNT 8.2 K/mm3 (4.0-10.0)
[2020-05-19] MEDS: QUEtiapine FUMARATE 100 MG TABLET (FP) PO SCH (22:04)
[2020-05-19] MEDS: THIAMINE HCL 100 MG TABLET (FP) PO SCH (22:05)
[2020-05-19] MEDS: MELATONIN 5 MG TABLETS PO SCH (22:05)
[2020-05-20] MEDS: chlordiazePOXIDE HCL 25 MG CAPSULE PO SCH ×4 (07:18→22:00)
[2020-05-20] MEDS: hydrOXYzine PAMOATE 25 MG CAPSULE (FP) PO SCH ×5 (07:19→22:00)
[2020-05-20] MEDS: PRENATAL VITAMINS W/ FOLIC ACID TABLET (FP) PO SCH (10:23)
[2020-05-20] MEDS: amLODIPine BESYLATE 10 MG TABLET (FP) PO SCH (10:24)
[2020-05-20] MEDS: THIAMINE HCL 100 MG TABLET (FP) PO SCH (22:00)
[2020-05-20] MEDS: QUEtiapine FUMARATE 100 MG TABLET (FP) PO SCH (22:00)
[2020-05-20] MEDS: MELATONIN 5 MG TABLETS PO SCH (22:01)
[2020-05-21] MEDS ORDERED: chlordiazePOXIDE HCL 10 MG CAPSULE PO PRN
[2020-05-21] MEDS: chlordiazePOXIDE HCL 10 MG CAPSULE PO SCH ×4 (05:39→22:12)
[2020-05-21] MEDS: hydrOXYzine PAMOATE 25 MG CAPSULE (FP) PO SCH ×5 (05:39→22:12)
[2020-05-21] MEDS: amLODIPine BESYLATE 10 MG TABLET (FP) PO SCH (10:31)
[2020-05-21] MEDS: PRENATAL VITAMINS W/ FOLIC ACID TABLET (FP) PO SCH (10:31)
[2020-05-21] MEDS: QUEtiapine FUMARATE 100 MG TABLET (FP) PO SCH (22:12)
[2020-05-21] MEDS: THIAMINE HCL 100 MG TABLET (FP) PO SCH (22:12)
[2020-05-21] MEDS: MELATONIN 5 MG TABLETS PO SCH (22:12)
[2020-05-22] MEDS ORDERED: chlordiazePOXIDE HCL 10 MG CAPSULE PO SCH (05:00)
[2020-05-22] MEDS: hydrOXYzine PAMOATE 25 MG CAPSULE (FP) PO SCH ×2 (05:27→10:12)
[2020-05-22 09:03] LABS: HEMATOCRIT 38.8 % (35.4-49); HEMOGLOBIN 12.8 GM/dL (11.7-16.9); MCH 30.1 pg (25.7-33.7); MCHC 32.8 g/dl (32.0-35.9); MEAN CELL VOLUME 91.6 fl (80-96); PLATELET COUNT 201 K/MM3 (134-434); RBC 4.24 M/mm3 (4.00-5.60); RDW 14.5 % (11.9-15.9); WHITE BLOOD COUNT 5.4 K/mm3 (4.0-10.0)
[2020-05-22] MEDS: amLODIPine BESYLATE 10 MG TABLET (FP) PO SCH (10:12)
[2020-05-22] MEDS: PRENATAL VITAMINS W/ FOLIC ACID TABLET (FP) PO SCH (10:12)
[2020-05-22] MEDS ORDERED: chlordiazePOXIDE 5 MG CAPSULE PO SCH (11:45)
[2020-05-22] MEDS ORDERED: QUEtiapine FUMARATE 50 MG TABLET PO SCH (22:00)
[2020-05-22] MEDS: MELATONIN 5 MG TABLETS PO SCH (22:03)
[2020-05-22] MEDS: THIAMINE HCL 100 MG TABLET (FP) PO SCH (22:04)
[2020-05-23] MEDS ORDERED: chlordiazePOXIDE HCL 10 MG CAPSULE PO ONE (05:00)
[2020-05-23] MEDS ORDERED: chlordiazePOXIDE 5 MG CAPSULE PO ONE (05:00)
[2020-05-23] MEDS ORDERED: amLODIPine BESYLATE 10 MG TABLET (FP) PO SCH (10:00)
[2020-05-23] MEDS: PRENATAL VITAMINS W/ FOLIC ACID TABLET (FP) PO SCH (10:11)
[2020-05-23 13:36] VITALS: BP 151/79; PULSE 89; TEMP 97.5
== END 2020-05-23 03:36 | disposition other institution (70) | DRG 897 ==
LOC: YASAS 11:58 → Y3N 13:51
PROVIDERS: ADMIT Allergy & Immunology; ATTEND Allergy & Immunology
PROC: HZ2ZZZZ Detoxification Services for Substance Abuse Treatment (ICD-10-PCS; principal; 2020-05-18)
DX: F10.230 Alcohol dependence with withdrawal, uncomplicated (principal); F10.282 Alcohol dependence with alcohol-induced sleep disorder; F10.24 Alcohol dependence with alcohol-induced mood disorder; F19.24 Other psychoactive substance dependence with psychoactive substance-induced mood disorder; F32.9 Major depressive disorder, single episode, unspecified; I25.10 Atherosclerotic heart disease of native coronary artery without angina pectoris; I10 Essential (primary) hypertension; Z95.1 Presence of aortocoronary bypass graft; R00.2 Palpitations; Z62.810 Personal history of physical and sexual abuse in childhood; Z96.643 Presence of artificial hip joint, bilateral; R26.89 Other abnormalities of gait and mobility; Z99.89 Dependence on other enabling machines and devices; Z88.6 Allergy status to analgesic agent; Z87.891 Personal history of nicotine dependence; Z91.5 Personal history of self-harm
CPT/HCPCS: 36415; 80053; 82962; 85027; 86593; 86780; 93005; 93010; C9803; U0003

== ENCOUNTER 2020-05-23 15:45 | Inpatient (IN) | payer OTHER ==
[~2020-05-23 15:45] MED LIST changes: -MAG HYDROX/AL HYDROX/SIMETH 30 ML UNIT-DOSE CUP PO PRN; -MENTHOL/PHENOL 1 EACH UD MM PRN
[2020-05-23] MEDS: THIAMINE HCL 100 MG TABLET (FP) PO SCH (21:09)
[2020-05-23] MEDS: MELATONIN 5 MG TABLETS PO SCH (21:09)
[2020-05-23] MEDS: QUEtiapine FUMARATE 50 MG TABLET PO SCH (21:09)
[2020-05-24] MEDS: PRENATAL VITAMINS W/ FOLIC ACID TABLET (FP) PO SCH (10:02)
[2020-05-24] MEDS: MAG HYDROX/AL HYDROX/SIMETH 30 ML UNIT-DOSE CUP PO PRN (10:03)
[2020-05-24] MEDS: MELATONIN 5 MG TABLETS PO SCH (21:51)
[2020-05-24] MEDS: QUEtiapine FUMARATE 50 MG TABLET PO SCH (21:51)
[2020-05-24] MEDS: THIAMINE HCL 100 MG TABLET (FP) PO SCH (21:51)
[2020-05-25] MEDS: PRENATAL VITAMINS W/ FOLIC ACID TABLET (FP) PO SCH (10:14)
[2020-05-25] MEDS: QUEtiapine FUMARATE 50 MG TABLET PO SCH (21:17)
[2020-05-25] MEDS: MELATONIN 5 MG TABLETS PO SCH (21:17)
[2020-05-25] MEDS: THIAMINE HCL 100 MG TABLET (FP) PO SCH (21:17)
[2020-05-26] MEDS: PRENATAL VITAMINS W/ FOLIC ACID TABLET (FP) PO SCH (10:09)
[2020-05-26] MEDS: QUEtiapine FUMARATE 50 MG TABLET PO SCH (21:51)
[2020-05-26] MEDS: MELATONIN 5 MG TABLETS PO SCH (21:51)
[2020-05-26] MEDS: THIAMINE HCL 100 MG TABLET (FP) PO SCH (21:51)
[2020-05-27] MEDS: PRENATAL VITAMINS W/ FOLIC ACID TABLET (FP) PO SCH (10:02)
[2020-05-27] MEDS: MELATONIN 5 MG TABLETS PO SCH (21:11)
[2020-05-27] MEDS: THIAMINE HCL 100 MG TABLET (FP) PO SCH (21:11)
[2020-05-27] MEDS: QUEtiapine FUMARATE 50 MG TABLET PO SCH (21:11)
[2020-05-28] MEDS: PRENATAL VITAMINS W/ FOLIC ACID TABLET (FP) PO SCH (10:18)
[2020-05-28] MEDS: MELATONIN 5 MG TABLETS PO SCH (21:39)
[2020-05-28] MEDS: QUEtiapine FUMARATE 50 MG TABLET PO SCH (21:39)
[2020-05-28] MEDS: THIAMINE HCL 100 MG TABLET (FP) PO SCH (21:39)
[2020-05-29] MEDS: PRENATAL VITAMINS W/ FOLIC ACID TABLET (FP) PO SCH (11:00)
[2020-05-29] MEDS: MELATONIN 5 MG TABLETS PO SCH (21:14)
[2020-05-29] MEDS: QUEtiapine FUMARATE 50 MG TABLET PO SCH (21:14)
[2020-05-29] MEDS: THIAMINE HCL 100 MG TABLET (FP) PO SCH (21:14)
[2020-05-30] MEDS: PRENATAL VITAMINS W/ FOLIC ACID TABLET (FP) PO SCH (10:12)
[2020-05-30] MEDS: MAG HYDROX/AL HYDROX/SIMETH 30 ML UNIT-DOSE CUP PO PRN (10:14)
[2020-05-30] MEDS: MELATONIN 5 MG TABLETS PO SCH (21:41)
[2020-05-30] MEDS: QUEtiapine FUMARATE 50 MG TABLET PO SCH (21:41)
[2020-05-30] MEDS: THIAMINE HCL 100 MG TABLET (FP) PO SCH (21:41)
[2020-05-31] MEDS: PRENATAL VITAMINS W/ FOLIC ACID TABLET (FP) PO SCH (10:05)
[2020-05-31] MEDS: THIAMINE HCL 100 MG TABLET (FP) PO SCH (23:23)
[2020-05-31] MEDS: QUEtiapine FUMARATE 50 MG TABLET PO SCH (23:23)
[2020-05-31] MEDS: MELATONIN 5 MG TABLETS PO SCH (23:23)
[2020-06-01] MEDS: PRENATAL VITAMINS W/ FOLIC ACID TABLET (FP) PO SCH (10:35)
[2020-06-01] MEDS: THIAMINE HCL 100 MG TABLET (FP) PO SCH (21:10)
[2020-06-01] MEDS: MELATONIN 5 MG TABLETS PO SCH (21:10)
[2020-06-01] MEDS: QUEtiapine FUMARATE 50 MG TABLET PO SCH (21:11)
[2020-06-02] MEDS: PRENATAL VITAMINS W/ FOLIC ACID TABLET (FP) PO SCH (09:56)
[2020-06-02] MEDS: MELATONIN 5 MG TABLETS PO SCH (21:41)
[2020-06-02] MEDS: QUEtiapine FUMARATE 50 MG TABLET PO SCH (21:42)
[2020-06-02] MEDS: THIAMINE HCL 100 MG TABLET (FP) PO SCH (21:42)
[2020-06-03] MEDS: PRENATAL VITAMINS W/ FOLIC ACID TABLET (FP) PO SCH (09:59)
[2020-06-03] MEDS: MELATONIN 5 MG TABLETS PO SCH (21:15)
[2020-06-03] MEDS: THIAMINE HCL 100 MG TABLET (FP) PO SCH (21:15)
[2020-06-03] MEDS: QUEtiapine FUMARATE 50 MG TABLET PO SCH (21:15)
[2020-06-04] MEDS: PRENATAL VITAMINS W/ FOLIC ACID TABLET (FP) PO SCH (09:50)
[2020-06-04] MEDS: QUEtiapine FUMARATE 50 MG TABLET PO SCH (21:32)
[2020-06-04] MEDS: THIAMINE HCL 100 MG TABLET (FP) PO SCH (21:32)
[2020-06-04] MEDS: MELATONIN 5 MG TABLETS PO SCH (21:32)
[2020-06-05] MEDS: PRENATAL VITAMINS W/ FOLIC ACID TABLET (FP) PO SCH (09:55)
[2020-06-05] MEDS: MELATONIN 5 MG TABLETS PO SCH (21:17)
[2020-06-05] MEDS: THIAMINE HCL 100 MG TABLET (FP) PO SCH (21:17)
[2020-06-05] MEDS: QUEtiapine FUMARATE 50 MG TABLET PO SCH (21:17)
[2020-06-06] MEDS: PRENATAL VITAMINS W/ FOLIC ACID TABLET (FP) PO SCH (10:01)
[2020-06-06] MEDS: QUEtiapine FUMARATE 50 MG TABLET PO SCH (21:36)
[2020-06-06] MEDS: MELATONIN 5 MG TABLETS PO SCH (21:36)
[2020-06-06] MEDS: THIAMINE HCL 100 MG TABLET (FP) PO SCH (21:36)
[2020-06-07] MEDS: PRENATAL VITAMINS W/ FOLIC ACID TABLET (FP) PO SCH (10:02)
[2020-06-07] MEDS: QUEtiapine FUMARATE 50 MG TABLET PO SCH (21:37)
[2020-06-07] MEDS: MELATONIN 5 MG TABLETS PO SCH (21:37)
[2020-06-07] MEDS: THIAMINE HCL 100 MG TABLET (FP) PO SCH (21:37)
[2020-06-08] MEDS: PRENATAL VITAMINS W/ FOLIC ACID TABLET (FP) PO SCH (10:24)
[2020-06-08] MEDS: MELATONIN 5 MG TABLETS PO SCH (21:36)
[2020-06-08] MEDS: THIAMINE HCL 100 MG TABLET (FP) PO SCH (21:36)
[2020-06-08] MEDS: QUEtiapine FUMARATE 50 MG TABLET PO SCH (21:36)
[2020-06-09] MEDS: PRENATAL VITAMINS W/ FOLIC ACID TABLET (FP) PO SCH (09:51)
[2020-06-09] MEDS: MELATONIN 5 MG TABLETS PO SCH (21:20)
[2020-06-09] MEDS: QUEtiapine FUMARATE 50 MG TABLET PO SCH (21:20)
[2020-06-09] MEDS: THIAMINE HCL 100 MG TABLET (FP) PO SCH (21:20)
[2020-06-10] MEDS: PRENATAL VITAMINS W/ FOLIC ACID TABLET (FP) PO SCH (09:55)
[2020-06-10] MEDS: THIAMINE HCL 100 MG TABLET (FP) PO SCH (21:51)
[2020-06-10] MEDS: QUEtiapine FUMARATE 50 MG TABLET PO SCH (21:51)
[2020-06-10] MEDS: MELATONIN 5 MG TABLETS PO SCH (21:51)
[2020-06-11] MEDS: PRENATAL VITAMINS W/ FOLIC ACID TABLET (FP) PO SCH (10:14)
[2020-06-11] MEDS: QUEtiapine FUMARATE 50 MG TABLET PO SCH (21:26)
[2020-06-11] MEDS: MELATONIN 5 MG TABLETS PO SCH (21:26)
[2020-06-11] MEDS: THIAMINE HCL 100 MG TABLET (FP) PO SCH (21:26)
[2020-06-12] MEDS: PRENATAL VITAMINS W/ FOLIC ACID TABLET (FP) PO SCH (10:16)
[2020-06-12] MEDS: QUEtiapine FUMARATE 50 MG TABLET PO SCH (21:57)
[2020-06-12] MEDS: MELATONIN 5 MG TABLETS PO SCH (21:57)
[2020-06-12] MEDS: THIAMINE HCL 100 MG TABLET (FP) PO SCH (21:57)
[2020-06-13] MEDS: PRENATAL VITAMINS W/ FOLIC ACID TABLET (FP) PO SCH (10:37)
[2020-06-13] MEDS: MELATONIN 5 MG TABLETS PO SCH (21:16)
[2020-06-13] MEDS: THIAMINE HCL 100 MG TABLET (FP) PO SCH (21:16)
[2020-06-13] MEDS: QUEtiapine FUMARATE 50 MG TABLET PO SCH (21:16)
[2020-06-14] MEDS: PRENATAL VITAMINS W/ FOLIC ACID TABLET (FP) PO SCH (10:12)
[2020-06-14] MEDS: THIAMINE HCL 100 MG TABLET (FP) PO SCH (22:07)
[2020-06-14] MEDS: QUEtiapine FUMARATE 50 MG TABLET PO SCH (22:07)
[2020-06-14] MEDS: MELATONIN 5 MG TABLETS PO SCH (22:07)
[2020-06-15] MEDS: PRENATAL VITAMINS W/ FOLIC ACID TABLET (FP) PO SCH (10:39)
[2020-06-15] MEDS: MELATONIN 5 MG TABLETS PO SCH (21:15)
[2020-06-15] MEDS: QUEtiapine FUMARATE 50 MG TABLET PO SCH (21:15)
[2020-06-15] MEDS: THIAMINE HCL 100 MG TABLET (FP) PO SCH (21:15)
[2020-06-16] MEDS: PRENATAL VITAMINS W/ FOLIC ACID TABLET (FP) PO SCH (10:22)
[2020-06-16] MEDS: THIAMINE HCL 100 MG TABLET (FP) PO SCH (21:37)
[2020-06-16] MEDS: QUEtiapine FUMARATE 50 MG TABLET PO SCH (21:37)
[2020-06-16] MEDS: MELATONIN 5 MG TABLETS PO SCH (21:37)
[2020-06-17] MEDS: PRENATAL VITAMINS W/ FOLIC ACID TABLET (FP) PO SCH (10:47)
[2020-06-17] MEDS: THIAMINE HCL 100 MG TABLET (FP) PO SCH (21:20)
[2020-06-17] MEDS: QUEtiapine FUMARATE 50 MG TABLET PO SCH (21:20)
[2020-06-17] MEDS: MELATONIN 5 MG TABLETS PO SCH (21:20)
[2020-06-18] MEDS: PRENATAL VITAMINS W/ FOLIC ACID TABLET (FP) PO SCH (10:34)
[2020-06-18] MEDS: QUEtiapine FUMARATE 50 MG TABLET PO SCH (21:33)
[2020-06-18] MEDS: THIAMINE HCL 100 MG TABLET (FP) PO SCH (21:33)
[2020-06-18] MEDS: MELATONIN 5 MG TABLETS PO SCH (21:33)
[2020-06-19] MEDS: PRENATAL VITAMINS W/ FOLIC ACID TABLET (FP) PO SCH (09:47)
[2020-06-19] MEDS: QUEtiapine FUMARATE 50 MG TABLET PO SCH (21:29)
[2020-06-19] MEDS: MELATONIN 5 MG TABLETS PO SCH (21:29)
[2020-06-19] MEDS: THIAMINE HCL 100 MG TABLET (FP) PO SCH (21:29)
[2020-06-20 06:28] VITALS: BP 113/63; PULSE 78; TEMP 98.2
[2020-06-20] MEDS: PRENATAL VITAMINS W/ FOLIC ACID TABLET (FP) PO SCH (09:41)
== END 2020-06-20 09:52 | disposition home or self-care (01) | DRG 895 ==
LOC: YASAS 15:45 → Y5N 15:48
PROVIDERS: ADMIT Allergy & Immunology; ATTEND Allergy & Immunology
PROC: HZ42ZZZ Group Counseling for Substance Abuse Treatment, Cognitive-Behavioral (ICD-10-PCS; principal; 2020-05-23)
DX: F10.20 Alcohol dependence, uncomplicated (principal); J45.909 Unspecified asthma, uncomplicated; R60.0 Localized edema; M79.605 Pain in left leg; M79.604 Pain in right leg; G89.29 Other chronic pain; G47.00 Insomnia, unspecified; R26.2 Difficulty in walking, not elsewhere classified; Z99.89 Dependence on other enabling machines and devices; Z87.891 Personal history of nicotine dependence; Z87.438 Personal history of other diseases of male genital organs; Z96.643 Presence of artificial hip joint, bilateral; Z88.8 Allergy status to other drugs, medicaments and biological substances; Z59.0 Homelessness
CPT/HCPCS: C9803; U0003

== ENCOUNTER 2020-12-25 09:18 | Inpatient (IN) | payer BC, OTHER ==
[2020-12-25 10:40] VITALS: BMI 25.8
[2020-12-25] MEDS ORDERED: IBUPROFEN 400 MG TABLET (FP) PO PRN (10:47)
[2020-12-25] MEDS ORDERED: ACETAMINOPHEN 325 MG TABLET (FP) PO PRN ×2 (10:47)
[2020-12-25] MEDS ORDERED: ONDANSETRON *ODT* 4 MG TABLET SL PRN (10:47)
[2020-12-25] MEDS ORDERED: MAGNESIUM CITRATE 300 ML BOTTLE PO PRN (10:47)
[2020-12-25] MEDS ORDERED: METHOCARBAMOL 500 MG TABLET PO PRN (10:47)
[2020-12-25] MEDS ORDERED: BISMUTH SUBSALICYLATE 524 MG/30 ML PO PRN (10:47)
[2020-12-25] MEDS ORDERED: MENTHOL/PHENOL 1 EACH UD MM PRN (10:47)
[2020-12-25] MEDS ORDERED: MAGNESIUM HYDROX 2400MG/30ML ORAL SUSPENSION 30 ML CUP PO PRN (10:47)
[2020-12-25] MEDS ORDERED: MAG HYDROX/AL HYDROX/SIMETH 30 ML UNIT-DOSE CUP PO PRN (10:47)
[2020-12-25] MEDS: PRENATAL VITAMINS W/ FOLIC ACID TABLET (FP) PO SCH (12:36)
[2020-12-25] MEDS: BACITRACIN 0.9 GM PACKET TP SCH ×2 (12:37→22:24)
[2020-12-25 13:28] LABS: HEMATOCRIT 43.7 % (35.4-49); HEMOGLOBIN 14.3 GM/dL (11.7-16.9); MCH 29.8 pg (25.7-33.7); MCHC 32.7 g/dl (32.0-35.9); MEAN CELL VOLUME 91.2 fl (80-96); MEAN PLT VOLUME 6.9 fl (7.5-11.1); PLATELET COUNT 185 10^3/uL (134-434); RBC 4.79 M/mm3 (4.00-5.60); RDW 15.3 % (11.9-15.9); WHITE BLOOD COUNT 4.7 K/mm3 (4.0-10.0)
[2020-12-25] MEDS: hydrOXYzine PAMOATE 25 MG CAPSULE (FP) PO SCH ×3 (13:34→22:22)
[2020-12-25 13:42] LABS: ALBUMIN 3.4 g/dl (3.4-5.0); CALCIUM 8.7 mg/dL (8.5-10.1)
[2020-12-25 13:45] LABS: CREATININE 0.8 mg/dL (0.55-1.3)
[2020-12-25 13:47] LABS: BILIRUBIN,TOTAL 0.6 mg/dL (0.2-1); TOT PROT 7.5 g/dl (6.4-8.2)
[2020-12-25 13:51] LABS: BLOOD UREA NITROGEN 7.6 mg/dL (7-18)
[2020-12-25] MEDS: THIAMINE HCL 100 MG TABLET (FP) PO SCH (22:22)
[2020-12-25] MEDS: QUEtiapine FUMARATE 50 MG TABLET PO SCH (22:22)
[2020-12-25] MEDS: MELATONIN 5 MG TABLETS PO SCH (22:22)
[2020-12-26] MEDS: hydrOXYzine PAMOATE 25 MG CAPSULE (FP) PO SCH ×5 (06:07→22:59)
[2020-12-26] MEDS ORDERED: diazePAM 5 MG TABLET PO PRN (10:00)
[2020-12-26] MEDS: diazePAM 5 MG TABLET PO SCH ×3 (10:28→22:55)
[2020-12-26] MEDS: PRENATAL VITAMINS W/ FOLIC ACID TABLET (FP) PO SCH (10:28)
[2020-12-26] MEDS: BACITRACIN 0.9 GM PACKET TP SCH ×2 (10:28→22:56)
[2020-12-26] MEDS: QUEtiapine FUMARATE 50 MG TABLET PO SCH (22:55)
[2020-12-26] MEDS: THIAMINE HCL 100 MG TABLET (FP) PO SCH (22:55)
[2020-12-26] MEDS: MELATONIN 5 MG TABLETS PO SCH (22:55)
[2020-12-27] MEDS: diazePAM 5 MG TABLET PO SCH ×4 (06:20→22:57)
[2020-12-27] MEDS: hydrOXYzine PAMOATE 25 MG CAPSULE (FP) PO SCH ×5 (06:20→22:55)
[2020-12-27] MEDS: BACITRACIN 0.9 GM PACKET TP SCH ×2 (10:30→22:55)
[2020-12-27] MEDS: PRENATAL VITAMINS W/ FOLIC ACID TABLET (FP) PO SCH (10:31)
[2020-12-27] MEDS: THIAMINE HCL 100 MG TABLET (FP) PO SCH (22:55)
[2020-12-27] MEDS: QUEtiapine FUMARATE 50 MG TABLET PO SCH (22:55)
[2020-12-27] MEDS: MELATONIN 5 MG TABLETS PO SCH (22:55)
[2020-12-28] MEDS: diazePAM 5 MG TABLET PO SCH ×3 (06:56→23:06)
[2020-12-28] MEDS: hydrOXYzine PAMOATE 25 MG CAPSULE (FP) PO SCH ×5 (06:56→23:06)
[2020-12-28] MEDS: PRENATAL VITAMINS W/ FOLIC ACID TABLET (FP) PO SCH (10:29)
[2020-12-28] MEDS: BACITRACIN 0.9 GM PACKET TP SCH ×2 (10:29→23:06)
[2020-12-28] MEDS: MELATONIN 5 MG TABLETS PO SCH (23:06)
[2020-12-28] MEDS: QUEtiapine FUMARATE 50 MG TABLET PO SCH (23:06)
[2020-12-28] MEDS: THIAMINE HCL 100 MG TABLET (FP) PO SCH (23:07)
[2020-12-29] MEDS: diazePAM 5 MG TABLET PO SCH ×2 (07:11→18:24)
[2020-12-29] MEDS: hydrOXYzine PAMOATE 25 MG CAPSULE (FP) PO SCH ×5 (07:12→22:44)
[2020-12-29] MEDS: BACITRACIN 0.9 GM PACKET TP SCH ×2 (11:04→22:43)
[2020-12-29] MEDS: PRENATAL VITAMINS W/ FOLIC ACID TABLET (FP) PO SCH (11:04)
[2020-12-29] MEDS: MELATONIN 5 MG TABLETS PO SCH (22:43)
[2020-12-29] MEDS: QUEtiapine FUMARATE 50 MG TABLET PO SCH (22:43)
[2020-12-29] MEDS: THIAMINE HCL 100 MG TABLET (FP) PO SCH (22:44)
[2020-12-30] MEDS ORDERED: diazePAM 5 MG TABLET PO ONE (06:00)
[2020-12-30] MEDS: hydrOXYzine PAMOATE 25 MG CAPSULE (FP) PO SCH ×2 (06:47→10:09)
[2020-12-30 07:20] VITALS: BP 118/74; PULSE 69; TEMP 98.1
[2020-12-30] MEDS: BACITRACIN 0.9 GM PACKET TP SCH (10:09)
[2020-12-30] MEDS: PRENATAL VITAMINS W/ FOLIC ACID TABLET (FP) PO SCH (10:09)
== END 2020-12-30 12:18 | disposition home or self-care (01) | DRG 897 ==
LOC: YASAS 09:18 → UNDOADMIN 12:05 → Y6N 12:05
PROVIDERS: ADMIT Allergy & Immunology; ATTEND Allergy & Immunology
PROC: HZ2ZZZZ Detoxification Services for Substance Abuse Treatment (ICD-10-PCS; principal; 2020-12-25)
DX: F10.230 Alcohol dependence with withdrawal, uncomplicated (principal); F19.24 Other psychoactive substance dependence with psychoactive substance-induced mood disorder; F32.9 Major depressive disorder, single episode, unspecified; R60.0 Localized edema; Z96.643 Presence of artificial hip joint, bilateral; Z99.89 Dependence on other enabling machines and devices; Z87.891 Personal history of nicotine dependence; Z86.79 Personal history of other diseases of the circulatory system; Z56.0 Unemployment, unspecified; Z59.0 Homelessness; Z88.8 Allergy status to other drugs, medicaments and biological substances
CPT/HCPCS: 36415; 80053; 85027; 86593; 86780; C9803; U0003; U0005

== ENCOUNTER 2021-01-22 12:01 | Inpatient (IN) | payer BC, OTHER ==
[2021-01-22 12:46] VITALS: BMI 29.3
[2021-01-23] MEDS ORDERED: MAG HYDROX/AL HYDROX/SIMETH 30 ML UNIT-DOSE CUP PO PRN (00:50)
[2021-01-23] MEDS ORDERED: MENTHOL/PHENOL 1 EACH UD MM PRN (00:50)
[2021-01-23] MEDS ORDERED: IBUPROFEN 400 MG TABLET (FP) PO PRN (00:50)
[2021-01-23] MEDS ORDERED: LORazepam 1 MG TABLET PO PRN (00:50)
[2021-01-23] MEDS ORDERED: ACETAMINOPHEN 325 MG TABLET (FP) PO PRN ×2 (00:50)
[2021-01-23] MEDS ORDERED: ONDANSETRON *ODT* 4 MG TABLET SL PRN (00:50)
[2021-01-23] MEDS ORDERED: MAGNESIUM HYDROX 2400MG/30ML ORAL SUSPENSION 30 ML CUP PO PRN (00:50)
[2021-01-23] MEDS ORDERED: MAGNESIUM CITRATE 300 ML BOTTLE PO PRN (00:50)
[2021-01-23] MEDS ORDERED: BISMUTH SUBSALICYLATE 524 MG/30 ML PO PRN (00:50)
[2021-01-23] MEDS: METHOCARBAMOL 500 MG TABLET PO PRN (01:38)
[2021-01-23] MEDS: LORazepam 2 MG TABLET PO SCH ×4 (06:48→22:11)
[2021-01-23] MEDS: PRENATAL VITAMINS W/ FOLIC ACID TABLET (FP) PO SCH (10:36)
[2021-01-23] MEDS: SULFAMETHOXAZOLE/TRIMETHOPRIM 800MG/160MG D.S. TABLET PO SCH ×2 (10:38→22:11)
[2021-01-23] MEDS: LACTOBACILLUS ACIDOPHILUS 1 TABLET PO SCH (11:05)
[2021-01-23] MEDS: MELATONIN 5 MG TABLETS PO SCH (22:11)
[2021-01-23] MEDS: THIAMINE HCL 100 MG TABLET (FP) PO SCH (22:11)
[2021-01-24] MEDS: LORazepam 1 MG TABLET PO SCH ×4 (06:04→22:01)
[2021-01-24] MEDS: PRENATAL VITAMINS W/ FOLIC ACID TABLET (FP) PO SCH (10:05)
[2021-01-24] MEDS: SULFAMETHOXAZOLE/TRIMETHOPRIM 800MG/160MG D.S. TABLET PO SCH ×2 (10:05→22:01)
[2021-01-24 10:42] LABS: HEMATOCRIT 40.8 % (35.4-49); MCH 29.6 pg (25.7-33.7); MCHC 31.9 g/dl (32.0-35.9); MEAN CELL VOLUME 92.7 fl (80-96); MEAN PLT VOLUME 6.8 fl (7.5-11.1); PLATELET COUNT 269 10^3/uL (134-434); RDW 16.2 % (11.9-15.9); WHITE BLOOD COUNT 5.5 K/mm3 (4.0-10.0)
[2021-01-24 10:55] LABS: CALCIUM 8.6 mg/dL (8.5-10.1)
[2021-01-24 10:56] LABS: BLOOD UREA NITROGEN 12.1 mg/dL (7-18)
[2021-01-24 10:59] LABS: CREATININE 0.9 mg/dL (0.55-1.3)
[2021-01-24 11:00] LABS: BILIRUBIN,TOTAL 0.2 mg/dL (0.2-1); TOT PROT 6.9 g/dl (6.4-8.2)
[2021-01-24] MEDS: LACTOBACILLUS ACIDOPHILUS 1 TABLET PO SCH (13:05)
[2021-01-24] MEDS: THIAMINE HCL 100 MG TABLET (FP) PO SCH (22:01)
[2021-01-24] MEDS: MELATONIN 5 MG TABLETS PO SCH (22:01)
[2021-01-25] MEDS ORDERED: LORazepam 0.5 MG TABLET PO PRN
[2021-01-25] MEDS: LORazepam 0.5 MG TABLET PO SCH ×4 (07:03→22:19)
[2021-01-25] MEDS: PRENATAL VITAMINS W/ FOLIC ACID TABLET (FP) PO SCH (10:32)
[2021-01-25] MEDS: SULFAMETHOXAZOLE/TRIMETHOPRIM 800MG/160MG D.S. TABLET PO SCH ×2 (10:32→22:19)
[2021-01-25] MEDS: LACTOBACILLUS ACIDOPHILUS 1 TABLET PO SCH (11:28)
[2021-01-25] MEDS: THIAMINE HCL 100 MG TABLET (FP) PO SCH (22:19)
[2021-01-25] MEDS: MELATONIN 5 MG TABLETS PO SCH (23:14)
[2021-01-26] MEDS ORDERED: LORazepam 0.5 MG TABLET PO ONE (05:00)
[2021-01-26] MEDS: METHOCARBAMOL 500 MG TABLET PO PRN (05:40)
[2021-01-26] MEDS: PRENATAL VITAMINS W/ FOLIC ACID TABLET (FP) PO SCH (10:23)
[2021-01-26] MEDS: SULFAMETHOXAZOLE/TRIMETHOPRIM 800MG/160MG D.S. TABLET PO SCH ×2 (10:23→22:10)
[2021-01-26] MEDS: LACTOBACILLUS ACIDOPHILUS 1 TABLET PO SCH (11:43)
[2021-01-26] MEDS: MELATONIN 5 MG TABLETS PO SCH (22:10)
[2021-01-26] MEDS: THIAMINE HCL 100 MG TABLET (FP) PO SCH (22:11)
[2021-01-27] MEDS: PRENATAL VITAMINS W/ FOLIC ACID TABLET (FP) PO SCH (10:57)
[2021-01-27] MEDS: SULFAMETHOXAZOLE/TRIMETHOPRIM 800MG/160MG D.S. TABLET PO SCH ×2 (10:57→22:12)
[2021-01-27] MEDS: LACTOBACILLUS ACIDOPHILUS 1 TABLET PO SCH (10:59)
[2021-01-27] MEDS: THIAMINE HCL 100 MG TABLET (FP) PO SCH (22:12)
[2021-01-27] MEDS: MELATONIN 5 MG TABLETS PO SCH (22:12)
[2021-01-28 09:16] VITALS: PULSE 87
[2021-01-28] MEDS: SULFAMETHOXAZOLE/TRIMETHOPRIM 800MG/160MG D.S. TABLET PO SCH (10:24)
[2021-01-28] MEDS: PRENATAL VITAMINS W/ FOLIC ACID TABLET (FP) PO SCH (10:24)
[2021-01-28] MEDS: LACTOBACILLUS ACIDOPHILUS 1 TABLET PO SCH (12:27)
[2021-01-28 13:31] VITALS: BP 103/61; TEMP 98
== END 2021-01-28 15:30 | disposition home or self-care (01) | DRG 897 ==
LOC: YASAS 12:01 → Y3N 01-23 00:59
PROVIDERS: ADMIT Allergy & Immunology; ATTEND Allergy & Immunology
PROC: HZ2ZZZZ Detoxification Services for Substance Abuse Treatment (ICD-10-PCS; principal; 2021-01-23)
DX: F10.230 Alcohol dependence with withdrawal, uncomplicated (principal); L03.115 Cellulitis of right lower limb; A53.0 Latent syphilis, unspecified as early or late; Z96.643 Presence of artificial hip joint, bilateral; Z86.19 Personal history of other infectious and parasitic diseases; Z99.89 Dependence on other enabling machines and devices; Z98.890 Other specified postprocedural states; Z88.8 Allergy status to other drugs, medicaments and biological substances
CPT/HCPCS: 36415; 80053; 85027; 86593; 86780; C9803; U0003; U0005

== ENCOUNTER 2021-01-22 16:24 | Emergency (ER) | payer BC, OTHER ==
[2021-01-22 17:30] VITALS: BP 124/72; PULSE 76; TEMP 98; BMI 58.7
[2021-01-22] MEDS ORDERED: valACYclovir HCL 500 MG TABLET (FP) ONE ×2 (18:58→20:53)
[2021-01-22 21:31] LABS: BASO % 1.2 % (0-2.0); EOS % 1.7 % (0-4.5); HEMATOCRIT 41.8 % (35.4-49); HEMOGLOBIN 13.9 GM/dL (11.7-16.9); LYMPH % 25.9 % (8-40); MCH 30.1 pg (25.7-33.7); MCHC 33.3 g/dl (32.0-35.9); MEAN CELL VOLUME 90.4 fl (80-96); MEAN PLT VOLUME 6.1 fl (7.5-11.1); MONO % 13.1 % (3.8-10.2); NEUT % 58.1 % (42.8-82.8); PLATELET COUNT 270 10^3/uL (134-434); RBC 4.62 M/mm3 (4.00-5.60); RDW 16.3 % (11.9-15.9); WHITE BLOOD COUNT 5.1 K/mm3 (4.0-10.0)
[2021-01-22 21:42] LABS: ALBUMIN 3.3 g/dl (3.4-5.0); BLOOD UREA NITROGEN 7.2 mg/dL (7-18); CALCIUM 8.4 mg/dL (8.5-10.1)
[2021-01-22 21:45] LABS: CREATININE 0.9 mg/dL (0.55-1.3)
[2021-01-22 21:47] LABS: BILIRUBIN,TOTAL 0.3 mg/dL (0.2-1); TOT PROT 7.6 g/dl (6.4-8.2)
[2021-01-22 21:51] LABS: N-TERMINAL BNP 229.8 pg/ml (5-125)
== END 2021-01-23 00:11 | disposition short-term general hospital (02) ==
LOC: JER 16:24
DX: R22.42 Localized swelling, mass and lump, left lower limb (principal)
CPT/HCPCS: 36415; 80053; 83880; 85025; 93970-TC; 99285-25

== ENCOUNTER 2022-01-17 17:20 | Inpatient (IN) | payer OTHER ==
[2022-01-17 20:08] VITALS: BMI 28.0
[2022-01-17] MEDS ORDERED: hydrOXYzine PAMOATE 25 MG CAPSULE (FP) PO PRN (21:15)
[2022-01-17] MEDS ORDERED: MAGNESIUM HYDROX 2400MG/30ML ORAL SUSPENSION 30 ML CUP PO PRN (21:15)
[2022-01-17] MEDS ORDERED: LOPERAMIDE HCL 2 MG CAPSULE PO PRN (21:15)
[2022-01-17] MEDS ORDERED: chlordiazePOXIDE HCL 25 MG CAPSULE PO PRN (21:15)
[2022-01-17] MEDS ORDERED: BENZOCAINE/MENTHOL (CHLORASEPTIC ) LOZENGE MM PRN (21:15)
[2022-01-17] MEDS ORDERED: ACETAMINOPHEN 325 MG TABLET (FP) PO PRN ×2 (21:15)
[2022-01-17] MEDS ORDERED: ONDANSETRON *ODT* 4 MG TABLET SL PRN (21:15)
[2022-01-17] MEDS ORDERED: MAG HYDROX/AL HYDROX/SIMETH 30 ML UNIT-DOSE CUP PO PRN (21:15)
[2022-01-17] MEDS ORDERED: MAGNESIUM CITRATE 300 ML BOTTLE PO PRN (21:15)
[2022-01-17] MEDS ORDERED: DICYCLOMINE HCL 10 MG CAPSULE PO PRN (21:15)
[2022-01-18] MEDS: chlordiazePOXIDE HCL 25 MG CAPSULE PO SCH ×5 (00:03→23:40)
[2022-01-18] MEDS: MELATONIN 5 MG TABLETS PO SCH ×2 (00:03→23:40)
[2022-01-18] MEDS: THIAMINE HCL 100 MG TABLET (FP) PO SCH ×2 (00:03→23:40)
[2022-01-18] MEDS: PRENATAL VITAMINS W/ FOLIC ACID TABLET (FP) PO SCH (11:06)
[2022-01-18] MEDS: METHOCARBAMOL 500 MG TABLET PO PRN (11:06)
[2022-01-18 12:28] LABS: HEMOGLOBIN 14.6 GM/dL (11.7-16.9); MCH 30.2 pg (25.7-33.7); MCHC 33.2 g/dl (32.0-35.9); MEAN CELL VOLUME 90.9 fl (80-96); MEAN PLT VOLUME 6.8 fl (7.5-11.1); PLATELET COUNT 213 10^3/uL (134-434); RBC 4.84 M/mm3 (4.00-5.60); RDW 14.4 % (11.9-15.9); WHITE BLOOD COUNT 4.7 K/mm3 (4.0-10.0)
[2022-01-18 12:39] LABS: BLOOD UREA NITROGEN 10.9 mg/dL (7-18); CALCIUM 8.8 mg/dL (8.5-10.1)
[2022-01-18 12:40] LABS: ALBUMIN 3.5 g/dl (3.4-5.0)
[2022-01-18 12:43] LABS: CREATININE 0.8 mg/dL (0.55-1.3)
[2022-01-18 12:44] LABS: BILIRUBIN,TOTAL 0.7 mg/dL (0.2-1); TOT PROT 7.3 g/dl (6.4-8.2)
[2022-01-19] MEDS: chlordiazePOXIDE HCL 25 MG CAPSULE PO SCH ×4 (05:42→23:04)
[2022-01-19] MEDS: PRENATAL VITAMINS W/ FOLIC ACID TABLET (FP) PO SCH (11:02)
[2022-01-19] MEDS: METHOCARBAMOL 500 MG TABLET PO PRN (11:02)
[2022-01-19] MEDS: MELATONIN 5 MG TABLETS PO SCH (23:04)
[2022-01-19] MEDS: THIAMINE HCL 100 MG TABLET (FP) PO SCH (23:04)
[2022-01-20] MEDS ORDERED: chlordiazePOXIDE HCL 10 MG CAPSULE PO PRN
[2022-01-20] MEDS: chlordiazePOXIDE HCL 10 MG CAPSULE PO SCH ×4 (06:21→23:17)
[2022-01-20] MEDS: PRENATAL VITAMINS W/ FOLIC ACID TABLET (FP) PO SCH (10:32)
[2022-01-20] MEDS: THIAMINE HCL 100 MG TABLET (FP) PO SCH (23:17)
[2022-01-20] MEDS: MELATONIN 5 MG TABLETS PO SCH (23:17)
[2022-01-21] MEDS: METHOCARBAMOL 500 MG TABLET PO PRN (06:22)
[2022-01-21] MEDS: chlordiazePOXIDE HCL 10 MG CAPSULE PO SCH ×2 (06:22→18:37)
[2022-01-21] MEDS: PRENATAL VITAMINS W/ FOLIC ACID TABLET (FP) PO SCH (10:34)
[2022-01-21] MEDS: THIAMINE HCL 100 MG TABLET (FP) PO SCH (23:06)
[2022-01-21] MEDS: MELATONIN 5 MG TABLETS PO SCH (23:06)
[2022-01-22] MEDS: chlordiazePOXIDE HCL 10 MG CAPSULE PO ONE ×2 (07:11→07:15)
[2022-01-22] MEDS: PRENATAL VITAMINS W/ FOLIC ACID TABLET (FP) PO SCH (10:25)
[2022-01-22 13:20] VITALS: BP 123/67; PULSE 79; TEMP 97.3
[2022-01-22 14:51] LABS: URINE APPEARANCE CLEAR; URINE BILIRUBIN NEGATIVE (NEGATIVE); URINE COLOR YELLOW; URINE GLUCOSE (UA) NEGATIVE (NEGATIVE); URINE KETONE NEGATIVE (NEGATIVE); URINE LEUK ESTERASE NEGATIVE (NEGATIVE); URINE NITRITE NEGATIVE (NEGATIVE); URINE PROTEIN NEGATIVE (NEGATIVE); URINE UROBILINOGEN 0.2 mg/dL (0.2-1.0)
== END 2022-01-22 13:50 | disposition other institution (70) | DRG 897 ==
LOC: YASAS 17:20 → Y3N 23:22
PROVIDERS: ADMIT Allergy & Immunology; ATTEND Surgery
PROC: HZ2ZZZZ Detoxification Services for Substance Abuse Treatment (ICD-10-PCS; principal; 2022-01-17)
DX: F10.230 Alcohol dependence with withdrawal, uncomplicated (principal); F10.24 Alcohol dependence with alcohol-induced mood disorder; F32.9 Major depressive disorder, single episode, unspecified; R76.8 Other specified abnormal immunological findings in serum; Z96.643 Presence of artificial hip joint, bilateral; Z86.19 Personal history of other infectious and parasitic diseases; Z99.89 Dependence on other enabling machines and devices; Z88.8 Allergy status to other drugs, medicaments and biological substances; Z59.01 Sheltered homelessness; Z56.0 Unemployment, unspecified
CPT/HCPCS: 36415; 80053; 81003; 85027; 86593; 86780; 93005; 93010; C9803-CS; U0003; U0005

== ENCOUNTER 2022-01-22 14:12 | Inpatient (IN) | payer OTHER ==
[2022-01-22] MEDS ORDERED: MAGNESIUM HYDROX 2400MG/30ML ORAL SUSPENSION 30 ML CUP PO PRN (14:39)
[2022-01-22] MEDS ORDERED: ACETAMINOPHEN 325 MG TABLET (FP) PO PRN (14:39)
[2022-01-22] MEDS ORDERED: MAG HYDROX/AL HYDROX/SIMETH 30 ML UNIT-DOSE CUP PO PRN (14:39)
[2022-01-22] MEDS ORDERED: NICOTINE 10 MG CARTRIDGE (INHALER) IH PRN (14:39)
[2022-01-22] MEDS ORDERED: P-EPHED 60MG/TRIPROLIDI 2.5MG TABLET PO PRN (14:39)
[2022-01-22] MEDS ORDERED: guaiFENesin 200 MG/10 ML 10 ML UNIT-DOSE CUPS PO PRN (14:39)
[2022-01-22] MEDS ORDERED: LOPERAMIDE HCL 2 MG CAPSULE PO PRN (14:39)
[2022-01-22] MEDS ORDERED: MAGNESIUM CITRATE 300 ML BOTTLE PO PRN (14:39)
[2022-01-22] MEDS ORDERED: hydrOXYzine PAMOATE 25 MG CAPSULE (FP) PO PRN (14:45)
[2022-01-22] MEDS ORDERED: hydrOXYzine PAMOATE 25 MG CAPSULE (FP) PO SCH (18:00)
[2022-01-23] MEDS: MELATONIN 5 MG TABLETS PO SCH ×2 (00:06→21:52)
[2022-01-23] MEDS: THIAMINE HCL 100 MG TABLET (FP) PO SCH ×2 (00:06→21:52)
[2022-01-23] MEDS: NICOTINE 7 MG/24 HOURS TOPICAL PATCH TD SCH ×2 (01:07→11:08)
[2022-01-23] MEDS: PRENATAL VITAMINS W/ FOLIC ACID TABLET (FP) PO SCH (11:08)
[2022-01-24] MEDS: PRENATAL VITAMINS W/ FOLIC ACID TABLET (FP) PO SCH (10:55)
[2022-01-24] MEDS: NICOTINE 7 MG/24 HOURS TOPICAL PATCH TD SCH (10:55)
[2022-01-24 12:28] LABS: PH,URINE 5.5 (5.0-8.0); URINE APPEARANCE CLEAR; URINE BILIRUBIN NEGATIVE (NEGATIVE); URINE COLOR YELLOW; URINE GLUCOSE (UA) NEGATIVE (NEGATIVE); URINE KETONE NEGATIVE (NEGATIVE); URINE LEUK ESTERASE NEGATIVE (NEGATIVE); URINE NITRITE NEGATIVE (NEGATIVE); URINE PROTEIN NEGATIVE (NEGATIVE); URINE UROBILINOGEN 0.2 mg/dL (0.2-1.0)
[2022-01-24] MEDS: THIAMINE HCL 100 MG TABLET (FP) PO SCH (21:04)
[2022-01-24] MEDS: MELATONIN 5 MG TABLETS PO SCH (21:04)
[2022-01-25] MEDS: NICOTINE 7 MG/24 HOURS TOPICAL PATCH TD SCH (10:20)
[2022-01-25] MEDS: PRENATAL VITAMINS W/ FOLIC ACID TABLET (FP) PO SCH (10:20)
[2022-01-25] MEDS: MELATONIN 5 MG TABLETS PO SCH (21:04)
[2022-01-25] MEDS: THIAMINE HCL 100 MG TABLET (FP) PO SCH (21:04)
[2022-01-26] MEDS: NICOTINE 7 MG/24 HOURS TOPICAL PATCH TD SCH (10:44)
[2022-01-26] MEDS: PRENATAL VITAMINS W/ FOLIC ACID TABLET (FP) PO SCH (10:44)
[2022-01-26] MEDS: THIAMINE HCL 100 MG TABLET (FP) PO SCH (21:14)
[2022-01-26] MEDS: MELATONIN 5 MG TABLETS PO SCH (21:14)
[2022-01-27] MEDS: NICOTINE 7 MG/24 HOURS TOPICAL PATCH TD SCH (11:17)
[2022-01-27] MEDS: PRENATAL VITAMINS W/ FOLIC ACID TABLET (FP) PO SCH (11:18)
[2022-01-27] MEDS: MELATONIN 5 MG TABLETS PO SCH (21:33)
[2022-01-27] MEDS: THIAMINE HCL 100 MG TABLET (FP) PO SCH (21:33)
[2022-01-28] MEDS: PRENATAL VITAMINS W/ FOLIC ACID TABLET (FP) PO SCH (10:45)
[2022-01-28] MEDS: NICOTINE 7 MG/24 HOURS TOPICAL PATCH TD SCH (10:45)
[2022-01-28] MEDS: THIAMINE HCL 100 MG TABLET (FP) PO SCH (21:22)
[2022-01-28] MEDS: MELATONIN 5 MG TABLETS PO SCH (21:22)
[2022-01-29] MEDS: PRENATAL VITAMINS W/ FOLIC ACID TABLET (FP) PO SCH (10:44)
[2022-01-29] MEDS: NICOTINE 7 MG/24 HOURS TOPICAL PATCH TD SCH (10:44)
[2022-01-29] MEDS: THIAMINE HCL 100 MG TABLET (FP) PO SCH (22:09)
[2022-01-29] MEDS: MELATONIN 5 MG TABLETS PO SCH (22:09)
[2022-01-30] MEDS: NICOTINE 7 MG/24 HOURS TOPICAL PATCH TD SCH (11:56)
[2022-01-30] MEDS: PRENATAL VITAMINS W/ FOLIC ACID TABLET (FP) PO SCH (11:56)
[2022-01-30] MEDS: MELATONIN 5 MG TABLETS PO SCH (21:10)
[2022-01-30] MEDS: THIAMINE HCL 100 MG TABLET (FP) PO SCH (21:10)
[2022-01-31] MEDS: NICOTINE 7 MG/24 HOURS TOPICAL PATCH TD SCH (10:39)
[2022-01-31] MEDS: PRENATAL VITAMINS W/ FOLIC ACID TABLET (FP) PO SCH (10:39)
[2022-01-31] MEDS: MELATONIN 5 MG TABLETS PO SCH (22:00)
[2022-01-31] MEDS: THIAMINE HCL 100 MG TABLET (FP) PO SCH (22:00)
[2022-02-01] MEDS: NICOTINE 7 MG/24 HOURS TOPICAL PATCH TD SCH (10:08)
[2022-02-01] MEDS: PRENATAL VITAMINS W/ FOLIC ACID TABLET (FP) PO SCH (10:08)
[2022-02-01] MEDS: THIAMINE HCL 100 MG TABLET (FP) PO SCH (21:50)
[2022-02-01] MEDS: MELATONIN 5 MG TABLETS PO SCH (21:50)
[2022-02-02] MEDS: NICOTINE 7 MG/24 HOURS TOPICAL PATCH TD SCH (10:52)
[2022-02-02] MEDS: PRENATAL VITAMINS W/ FOLIC ACID TABLET (FP) PO SCH (10:53)
[2022-02-02] MEDS: MELATONIN 5 MG TABLETS PO SCH (21:52)
[2022-02-02] MEDS: THIAMINE HCL 100 MG TABLET (FP) PO SCH (21:52)
[2022-02-03] MEDS: PRENATAL VITAMINS W/ FOLIC ACID TABLET (FP) PO SCH (10:30)
[2022-02-03] MEDS: NICOTINE 7 MG/24 HOURS TOPICAL PATCH TD SCH (10:30)
[2022-02-03] MEDS: MELATONIN 5 MG TABLETS PO SCH (21:07)
[2022-02-03] MEDS: THIAMINE HCL 100 MG TABLET (FP) PO SCH (21:07)
[2022-02-04 07:10] VITALS: RESP 18; TEMP 96.9
[2022-02-04] MEDS: PRENATAL VITAMINS W/ FOLIC ACID TABLET (FP) PO SCH (10:53)
[2022-02-04] MEDS: NICOTINE 7 MG/24 HOURS TOPICAL PATCH TD SCH (10:53)
[2022-02-04 11:00] VITALS: BP 129/69; PULSE 91
== END 2022-02-04 11:55 | disposition home or self-care (01) | DRG 895 ==
LOC: YASAS 14:12 → Y3W 14:13
PROVIDERS: ADMIT Allergy & Immunology; ATTEND Psychiatry & Neurology Pain Medicine
PROC: HZ42ZZZ Group Counseling for Substance Abuse Treatment, Cognitive-Behavioral (ICD-10-PCS; principal; 2022-01-22)
DX: F10.20 Alcohol dependence, uncomplicated (principal); R26.2 Difficulty in walking, not elsewhere classified; Z99.89 Dependence on other enabling machines and devices; W18.39XA Other fall on same level, initial encounter; Y93.89 Activity, other specified; Y92.239 Unspecified place in hospital as the place of occurrence of the external cause; Z87.891 Personal history of nicotine dependence; Z87.438 Personal history of other diseases of male genital organs; Z96.643 Presence of artificial hip joint, bilateral; Z88.8 Allergy status to other drugs, medicaments and biological substances; Z86.19 Personal history of other infectious and parasitic diseases; Z56.0 Unemployment, unspecified; Z59.01 Sheltered homelessness
CPT/HCPCS: 81003